=== PATIENT | female | born 1960 | race Caucasian/White ===

== ENCOUNTER 2023-08-01 18:18 | Emergency (ER) | payer OTHER ==
--- OUTSIDE RECORDS SUMMARY | 2023-08-01 18:30 | XMS REPORT | Continuity of Care Document ---
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 [facility] (ZANAFLEX) 8-19 tablet (2 st 2 MG tablet 10:12: mg total) H ospita 25 by mouth l every 8 (eight) hours as needed for muscle spasms. acetaminoph 2-0 Yes [id number] 1{tbl} Q4H Take 1 M [facility] en-codeine 8-[address] (TYLENOL 10:12: mouth Hospita WITH 25 every 4 l CODEINE #3) (four) 300-30 mg hours as per tablet needed for moderate pain .acute pain. solifenacin 2021-0 Yes 10mg QD Take 10 mg [facility] (VESICARE) 8-[address] 5 MG tablet 10:12: daily. [facility] 25 l sucralfate 2021-0 Yes 1g Q.25D Take 1 g [facility] (CARAFATE) 8-[address] 1 gram 10:12: (four) Hospita tablet 25 times a l day. traMADoL 2-0 Yes [id number] 50mg Q6H Take 50 mg [facility] (ULTRAM) 50 8-[address] mg tablet 10:12: every 6 [facility] ta 25 (six) l hours as needed for moderate pain .acute pain. pramipexole 2021-0 Yes .5mg Q.[id number] Take 0.5 [facility] (MIRAPEX) 8-[id number] 0.5 MG 10:12: 3D mouth 3 [facility]osp[facility] tablet 25 (three) l times a day. citalopram 2021-0 Yes 20mg QD Take 20 mg [facility] (CeleXA) 20 8-[address] MG tablet 10:12: daily. Hospit a 25 l tiZANidine 2021-0 Yes 2mg Q8H Take 1 [facility] (ZANAFLEX) 8-19 tablet (2 st 2 MG tablet 10:12: mg total) [facility]spita 25 by mouth l every 8 (eight) hours as needed for muscle spasms. acetaminoph 2021-0 Yes [id number] 1{tbl} Q4H Take 1 M [facility] en-codeine 8-[address] (TYLENOL 10:12: mouth [facility]osp[facility] WITH 25 every 4 l CODEINE #3) (four) 300-30 mg hours as per tablet needed for moderate pain .acute pain. solifenacin 2021-0 Yes 10mg QD Take 10 mg [facility] (VESICARE) 8-[address] 5 MG tablet 10:12: daily. [facility] 25 l sucralfate 2021-0 Yes 1g Q.25D Take 1 g [facility] (CARAFATE) 8-[address] 1 gram 10:12: (four) Hospita tablet 25 times a l day. traMADoL 2-0 Yes [id number] 50mg Q6H Take 50 mg [facility] (ULTRAM) 50 8-[address] mg tablet 10:12: every 6 [facility] ta 25 (six) l hours as needed for moderate pain .acute pain. pramipexole 2021-0 Yes .5mg Q.[id number] Take 0.5 [facility] (MIRAPEX) 8-[id number] 0.5 MG 10:12: 3D mouth 3 [facility]osp[facility] tablet 25 (three) l times a day. citalopram 2-0 Yes 20mg QD Take 20 mg [facility] (CeleXA) 20 8-[address] MG tablet 10:12: daily. Hospit a 25 l tiZANidine 2021-0 Yes 2mg Q8H Take 1 [facility] di (ZANAFLEX) 8-19 tablet (2 st 2 MG tablet 10:12: mg total) [facility] ospita 25 by mouth l every 8 (eight) hours as needed for muscle spasms. acetaminoph 2021-0 Yes [id number] 1{tbl} Q4H Take 1 M [facility] en-codeine 8-[address] (TYLENOL 10:12: mouth [facility]osp[facility] WITH 25 every 4 l CODEINE #3) (four) 300-30 mg hours as per tablet needed for moderate pain .acute pain. solifenacin 2021-0 Yes 10mg QD Take 10 mg [facility] (VESICARE) 8-[address] 5 MG tablet 10:12: daily. [facility] 25 l sucralfate 2021-0 Yes 1g Q.25D Take 1 g [facility] (CARAFATE) 8-[address] 1 gram 10:12: (four) Hospita tablet 25 times a l day. traMADoL 2-0 Yes [id number] 50mg Q6H Take 50 mg [facility] (ULTRAM) 50 8-[address] mg tablet 10:12: every 6 Hospi ta 25 (six) l hours as needed for moderate pain .acute pain. pramipexole 2-0 Yes .5mg Q.[id number] Take 0.5 [facility] (MIRAPEX) 8-[id number] 0.5 MG 10:12: 3D mouth 3 [facility]ospita tablet 25 (three) l times a day. citalopram 2-0 Yes 20mg QD Take 20 mg [facility] (CeleXA) 20 8-[address] MG tablet 10:12: daily. Hospit a 25 l tiZANidine Yes 2mg Q8H Take 1 [facility] (ZANAFLEX) 8-19 tablet (2 st 2 MG tablet 10:12: mg total) H ospita 25 by mouth l every 8 (eight) hours as needed for muscle spasms. acetaminoph Yes [id number] 1{tbl} Q4H Take 1 M [facility] en-codeine 8-[address] (TYLENOL 10:12: mouth [facility]ospita WITH 25 every 4 l CODEINE #3) (four) 300-30 mg hours as per tablet needed for moderate pain .acute pain. HYDROcodone 2021- No [id number] 1{tbl} Q6H Take 1 UT -acetaminop 8-15 04- [id number] tablet by [facility]) 00:00: 04:59 mouth 5-325 MG 00 :00 every 6 tablet (six) hours if needed for severe pain for up to 10 days. HYDROcodone 2021- No [id number] 1{tbl} Q6H Take 1 UT -acetaminop 8-04-26 [id number] tablet by [facility]) 00:00: 04:59 mouth 5-325 MG 00 :00 every 6 tablet (six) hours if needed for severe pain for up to 10 days. fentaNYL No Route: IV, Mem oria (ANES) 8-10 Drug form: l 14:31: INJ, ONCE, Stop date: 04/08/22 9:31:00 CDT propofol No Route: IV, [facility] (ANES) 8-10 Drug form: l 14:31: INJ, ONCE, Stop date: 04/08/22 9:31:00 CDT ondansetron No Route: IV, [facility] (ANES) 8-10 Drug form: l 14:31: INJ, ONCE, Stop date: 04/08/22 9:31:00 CDT dexamethaso No Route: IV, Memoria ne (ANES) 8-10 Drug form: l 14:31: INJ, ONCE, Stop date: 04/08/22 9:31:00 CDT ceFAZolin No Route: IV, Me moria (ANES) 8-10 Drug form: l 14:26: INJ, ONCE, Stop date: 04/08/22 9:26:00 CDT ePHEDrine No Route: IV, Me moria (ANES) 8-10 Drug form: l 14:26: INJ, ONCE, Stop date: 04/08/22 9:26:00 CDT Lactated No Route: IV, Mem oria Ringers 8-10 Total l Injection 13:40: Volume: Becca nn IV (ANES) 00 1,000, 1000 mL Start date: 04/08/22 8:40:00 CDT, Stop date: 04/08/22 9:40:00 CDT ropivacaine No Notes: Omari olivier 0.2% in NS 8-10 Final l - site 1 13:07: concentrat Her peralta 550 mL 00 ion: Ropivacain e 0.2% 550 mL famotidine No Notes: Memor ia 8-10 (Same as: l 11:12: Pepcid) No Notes: [facility] oxyCODONE 8-10 (Same as: l 11:12: 'Roxicodon e) ANES No Notes: [facility] morphine 8-10 (Same l Sulfate 11:12: as:MORPhin e Sulfate) ANES No Notes: [facility] HYDROmorpho 8-10 Same as: l ne 11:12: Dilaudid No Notes: [facility] flumazenil 8-10 (Same as: l 11:12: Romazicon) No Notes: [facility] naloxone 8-10 Same as l 11:12: Narcan No Notes: [facility] ondansetron 8-10 (Same as: l 11:12: Zofran) MEDICATION WASTE Product Size: 4 mg Product Wasted: ___ mg acetaminoph No Notes: Max [facility]oria en 8-10 acetaminop l 11:12: hen 4000 [place] 00 mg/day (4 gm/day). (Same as: Tylenol Extra Strength) Lactated No 1,000 mL, Omari olivier Ringers 8-10 Rate: KVO, l Injection 10:00: Route: IV, He rmann IV 1,000 mL 00 Dosing Weight 93.182 kg, Total Volume: 1,000, Start date: 04/08/22 5:00:00 CDT, Duration: 30 day, Stop date: 05/08/22 4:59:00 CDT, BSA: 2.07 m2, 0 ceFAZolin + No Notes: Omari olivier sterile 8-10 (Same As: l water 20 mL 10:00: Ancef, Herm andrew 00 Kefzol) MEDICATION WASTE Product Size: 1000 mg Product Wasted: ___ mg Bactrim DS Yes 1 tab, PO, M emoria 800 mg- 160 7-15 [id number], X l mg oral 21:11: 10 day, # Becca nn tablet 00 20 tab, 0 Refill(s) acetaminoph Yes 1,000 mg = Memoria en 500 mg 7-15 2 tab, PO, l oral 21:10: Q6H, X 14 [place] tablet. 00 day, # 112 tab, 0 Refill(s) methocarbam 0 Yes 1,500 mg = [facility]oria ol 750 mg 7-15 2 tab, PO, l oral tablet 21:10: Q6Hnow, Her peralta 00 PRN Muscle Spasms, X 5 day, # 40 tab, 0 Refill(s) aspirin 325 0 Yes 325 mg, Mem oria mg tablet, 7-15 PO, Daily, l enteric 21:10: # 30 tab, Becca nn coated 00 0 Refill(s) ondansetron No 4 mg, Memor ia 7-15 Route: l 21:06: IVP, Drug Pietro 00 form: INJ, ONCE, Dosing Weight 75, kg, Start date: 03/13/22 16:06:00 CDT, Stop date: 03/13/22 16:06:00 CDT [place] Yes TAKE 1 UT 325 MG 7-15 CAPSULE BY [facility] capsule 00:00: MOUTH 00 DAILY FOR 21 DAYS [place] Yes TAKE 1 UT 325 MG 7-15 CAPSULE BY [facility] capsule 00:00: MOUTH 00 DAILY FOR 21 DAYS [place] Yes TAKE 1 UT 325 MG 7-15 CAPSULE BY [facility] capsule 00:00: MOUTH 00 DAILY FOR 21 DAYS [place] Yes TAKE 1 UT 325 MG 7-15 CAPSULE BY [facility] capsule 00:00: MOUTH 00 DAILY FOR 21 DAYS [place] Yes TAKE 1 UT 325 MG 7-15 CAPSULE BY [facility] capsule 00:00: MOUTH 00 DAILY FOR 21 DAYS [place] Yes TAKE 1 UT 325 MG 7-15 CAPSULE BY [facility] capsule 00:00: MOUTH 00 DAILY FOR 21 DAYS Bactrim DS No 1 tab, PO, M emoria 800 mg- 160 7-14 [id number], X l mg oral 20:55: 10 day, # Becca nn tablet 00 20 tab, 0 Refill(s), Pharmacy: [facility] #[id number], 165.1, cm, 03/10/22 4:38:00 CDT, Height, 75, kg, 03/10/22 4:38:00 CDT, Weight tramadol 50 Yes 50 mg = 1 M emoria mg oral 7-14 tab, PO, l tablet 20:51: Q6H, PRN [place] 00 Pain Score 4-6, X 5 day, # 18 tab, 0 Refill(s), Pharmacy: [facility] #[id number], 165.1, cm, 03/10/22 4:38:00 CDT, Height, 75, kg, 03/10/22 4:38:00 CDT, Weight methocarbam No 1,500 mg = Memoria ol 750 mg 7-14 2 tab, PO, l oral tablet 20:50: Q6Hnow, Her peralta 00 PRN Spasm, X 5 day, # 40 tab, 0 Refill(s), Pharmacy: [facility] #[id number], 165.1, cm, 03/10/22 4:38:00 CDT, Height, 75, kg, 03/10/22 4:38:00 CDT, Weight naproxen Yes 250 mg = 1 Mem oria 250 mg oral 7-14 tab, PO, l tablet 20:50: BID, X 5 Pietro 00 day, # 10 tab, 0 Refill(s), Pharmacy: [facility] #[id number], 165.1, cm, 03/10/22 4:38:00 CDT, Height, 75, kg, 03/10/22 4:38:00 CDT, Weight acetaminoph No 1,000 mg = Memoria en 500 mg 7-14 2 tab, PO, l oral 20:49: Q6H, X 14 Pietro tablet. 00 day, # 112 tab, 0 Refill(s), Pharmacy: [facility] #[id number], 165.1, cm, 03/10/22 4:38:00 CDT, Height, 75, kg, 03/10/22 4:38:00 CDT, Weight aspirin 325 No 325 mg, Mem oria mg oral 7-14 PO, Daily, l capsule 20:49: # 30 cap, Becca nn 00 0 Refill(s), Pharmacy: [facility] #[id number], 165.1, cm, 03/10/22 4:38:00 CDT, Height, 75, kg, 03/10/22 4:38:00 CDT, Weight Omnipaque No 60 mL, Memori a 350 mg/mL 03-12 Route: l 16:31: IVP, Drug Form: SOLN, Dosing Weight 75, kg, ONCALL, STAT, Start date: 03/12/22 11:31:00 CDT, Duration: 1 doses or times, Dose = 2.2ml/kg, Max dose = 100ml -- "To be infused by Radiology Staff ONLY" Bactrim DS No Notes: One M emoria 800 mg- 160 7-14 DS tablet l mg oral 10:00: = Pietro tablet 00 trimethopr im 160mg + sulfametho xazole 800 mg Dose based on trimethopr im component On empty stomach with a glass of water. (Same As: Bactrim DS, Septra DS) remove No 1 patch, Memoria patch 7-14 Route: l 02:00: TOP, [place] 00 Bedtime, Drug form: ERFILM, Start date: 03/11/22 21:00:00 CDT, Duration: 30 day, Stop date: 04/09/22 21:00:00 CDT, 0 traMADol 0 Yes TAKE 1 UT (Ultram) 50 7-14 TABLET BY [facility] MG tablet 00:00: MOUTH 00 EVERY 6 HOURS NEEDED FOR PAIN SCORE 4-6 FOR 5 DAYS methocarbam Yes TAKE 2 UT ol 7-14 TABLETS BY Health (Robaxin) 00:00: MOUTH 750 MG 00 EVERY 6 tablet HOURS NEEDED FOR SPASMS FOR 5 DAYS naproxen 0 Yes 250mg Q.5D Take 250 UT (Naprosyn) 7-[address] mg [address] [facility] 250 MG 00:00: mouth in tablet 00 the morning and 250 mg in the evening. for 5 days. sulfamethox 0 Yes TAKE 1 UT azole-trime 7-14 TABLET BY [facility] lt thoprim 00:00: MOUTH (Bactrim 00 EVERY 12 DS) 800-160 HOURS FOR MG tablet 10 DAYS traMADol 0 Yes TAKE 1 UT (Ultram) 50 7-14 TABLET BY a lth MG tablet 00:00: MOUTH 00 EVERY 6 HOURS NEEDED FOR PAIN SCORE 4-6 FOR 5 DAYS methocarbam 0 Yes TAKE 2 UT ol 7-14 TABLETS BY Health (Robaxin) 00:00: MOUTH 750 MG 00 EVERY 6 tablet HOURS NEEDED FOR SPASMS FOR 5 DAYS naproxen 2021-0 Yes 250mg Q.5D Take 250 UT (Naprosyn) 7-14 mg [address] [facility] 250 MG 00:00: mouth in tablet 00 the morning and 250 mg in the evening. for 5 days. sulfamethox 0 Yes TAKE 1 UT azole-trime 7-14 TABLET BY [facility] lt thoprim 00:00: MOUTH (Bactrim 00 EVERY 12 DS) 800-160 HOURS FOR MG tablet 10 DAYS traMADol 2021-0 Yes TAKE 1 UT (Ultram) 50 7-14 TABLET BY [facility] MG tablet 00:00: MOUTH 00 EVERY 6 HOURS NEEDED FOR PAIN SCORE 4-6 FOR 5 DAYS methocarbam 0 Yes TAKE 2 UT ol 7-14 TABLETS BY Health (Robaxin) 00:00: MOUTH 750 MG 00 EVERY 6 tablet HOURS NEEDED FOR SPASMS FOR 5 DAYS naproxen 2021-0 Yes 250mg Q.5D Take 250 UT (Naprosyn) 7-14 mg [address] [facility] 250 MG 00:00: mouth in tablet 00 the morning and 250 mg in the evening. for 5 days. sulfamethox 2021-0 Yes TAKE 1 UT azole-trime 7-14 TABLET BY [facility] lt thoprim 00:00: MOUTH (Bactrim 00 EVERY 12 DS) 800-160 HOURS FOR MG tablet 10 DAYS traMADol 2021-0 Yes TAKE 1 UT (Ultram) 50 7-14 TABLET BY [facility] lt MG tablet 00:00: MOUTH 00 EVERY 6 HOURS NEEDED FOR PAIN SCORE 4-6 FOR 5 DAYS methocarbam 2021-0 Yes TAKE 2 UT ol 7-14 TABLETS [address] [facility] (Robaxin) 00:00: MOUTH 750 MG 00 EVERY 6 tablet HOURS NEEDED FOR SPASMS FOR 5 DAYS naproxen 2021-0 Yes 250mg Q.5D Take 250 UT (Naprosyn) 7-14 mg [address] [facility] 250 MG 00:00: mouth in tablet 00 the morning and 250 mg in the evening. for 5 days. sulfamethox 2021-0 Yes TAKE 1 UT azole-trime 7-14 TABLET BY [facility] lt thoprim 00:00: MOUTH (Bactrim 00 EVERY 12 DS) 800-160 HOURS FOR MG tablet 10 DAYS traMADol 2021-0 Yes TAKE 1 UT (Ultram) 50 7-14 TABLET BY [facility] lt MG tablet 00:00: MOUTH 00 EVERY 6 HOURS NEEDED FOR PAIN SCORE 4-6 FOR 5 DAYS methocarbam 2021-0 Yes TAKE 2 UT ol 7-14 TABLETS [address] [facility] (Robaxin) 00:00: MOUTH 750 MG 00 EVERY 6 tablet HOURS NEEDED FOR SPASMS FOR 5 DAYS naproxen 2021-0 Yes 250mg Q.5D Take 250 UT (Naprosyn) 7-14 mg [address] [facility] 250 MG 00:00: mouth in tablet 00 the morning and 250 mg in the evening. for 5 days. sulfamethox 2021-0 Yes TAKE 1 UT azole-trime 7-14 TABLET BY [facility] lt thoprim 00:00: MOUTH (Bactrim 00 EVERY 12 DS) 800-160 HOURS FOR MG tablet 10 DAYS traMADol 2022-0 Yes TAKE 1 UT (Ultram) 50 7-14 TABLET BY [facility] MG tablet 00:00: MOUTH 00 EVERY 6 HOURS NEEDED FOR PAIN SCORE 4-6 FOR 5 DAYS methocarbam Yes TAKE 2 UT ol 7-14 TABLETS [address] [facility] (Robaxin) 00:00: MOUTH 750 MG 00 EVERY 6 tablet HOURS NEEDED FOR SPASMS FOR 5 DAYS naproxen Yes 250mg Q.5D Take 250 UT (Naprosyn) 7-[address] mg [address] [facility] 250 MG 00:00: mouth in tablet 00 the morning and 250 mg in the evening. for 5 days. sulfamethox Yes TAKE 1 UT azole-trime 7-14 TABLET BY [facility] thoprim 00:00: MOUTH (Bactrim 00 EVERY 12 DS) 800-160 HOURS FOR MG tablet 10 DAYS traMADol Yes TAKE 1 UT (Ultram) 50 7-14 TABLET [facility] MG tablet 00:00: MOUTH 00 EVERY 6 HOURS NEEDED FOR PAIN SCORE 4-6 FOR 5 DAYS traMADol Yes TAKE 1 UT (Ultram) 50 7-14 TABLET BY [facility] MG tablet 00:00: MOUTH 00 EVERY 6 HOURS NEEDED FOR PAIN SCORE 4-6 FOR 5 DAYS traMADol Yes TAKE 1 UT (Ultram) 50 7-14 TABLET BY [facility] MG tablet 00:00: MOUTH 00 EVERY 6 HOURS NEEDED FOR PAIN SCORE 4-6 FOR 5 DAYS traMADol Yes TAKE 1 UT (Ultram) 50 7-14 TABLET BY [facility] MG tablet 00:00: MOUTH 00 EVERY 6 HOURS NEEDED FOR PAIN SCORE 4-6 FOR 5 DAYS valsartan Yes 160 mg = 1 Me moria 160 mg oral 7-13 tab, PO, l tablet 19:37: Daily tizanidine Yes 2 mg = 1 Mem oria 2 mg oral 7-13 tab, PO, l tablet 19:37: Bedtime, PRN Spasm sucralfate Yes 1 gm = 1 Mem oria 1 g oral 7-13 tab, PO, l tablet 19:37: Daily citalopram Yes 40 mg = 1 Me moria 40 mg oral 7-13 tab, PO, l tablet 19:36: Daily pramipexole Yes 0.5 mg = 1 Memoria 0.5 mg oral 7-13 tab, PO, l tablet 19:36: BID VESIcare Yes 10 mg, PO, Mem oria 7-13 Daily l 19:36: [place] 00 Prilosec 20 Yes 20 mg = 1 M emoria mg oral 7-13 cap, PO, l delayed 19:34: Daily [place] release 00 capsule lidocaine No Notes: Memori a 4% patch 7-13 Patch is l 16:00: applied to intact skin to cover painful area for up to 12 hours in a 24-hour period (12 hours on and 12 hours off). Please indicate the location of applicatio n site. Site 1: Remove old patch before applicatio n of new patch. (Same as Aspercreme Lidocaine Patch) oxyCODONE 5 No Notes: Omari olivier mg/5 mL 7-13 (Same as: l oral 15:31: 'Roxicodon [place] solution 00 e) oxyCODONE No Notes: Memori a immediate 7-13 (Same as: l release 14:36: 'Roxicodon Herm andrew 00 e) Omnipaque No 60 mL, Memori a 350 mg/mL 7-13 Route: l 02:43: IVP, Drug Form: SOLN, Dosing Weight 75, kg, ONCALL, STAT, Start date: 03/10/22 21:43:00 CDT, Duration: 1 doses or times, Dose = 2.2ml/kg, Max dose = 100ml -- "To be infused by Radiology Staff ONLY" senna No Notes: Memoria 7-13 (Same as: l 02:00: Senokot) Pietro docusate-se No Notes: Omari olivier nna 50 7-13 (Same as l mg-8.6 mg 02:00: Senokot-S) He rmann oral tablet 00 Equiv. to Wendi-Colac e. melatonin No Notes: Memori a 7-13 (Same as: l 02:00: Melatonin) labetalol No 5 mg, 1 Memor ia 7-13 mL, Route: l 00:43: IVP, Drug form: INJ, ONCE, Dosing Weight 75, kg, Start date: 03/10/22 19:43:00 CDT, Stop date: 03/10/22 19:43:00 CDT, 0 pramipexole No Notes: Omari olivier 7-13 TIME l 00:35: CRITICAL Pietro 00 MEDICATION (Same as: Mirapex) valsartan No Notes: Memori a 7-13 Same as l 00:35: [place] oxyCODONE No Notes: Memori a immediate 7-12 (Same as: l release 22:54: 'Roxicodon e) oxyCODONE No 2.5 mg, Memor ia immediate 7-12 Route: PO, l release 22:48: Drug form: Herm andrew 00 TAB, ONCE, Dosing Weight 75, kg, Start date: 03/10/22 17:48:00 CDT, Stop date: 03/10/22 17:48:00 CDT MiraLax No Notes: Memoria 7-12 Dissolve l 22:00: in 8 oz of water or juice. (Same as: Miralax) labetalol No 5 mg, 1 Memor ia 7-12 mL, Route: l 17:21: IV, Drug form: INJ, Q4H, Dosing Weight 75, kg, PRN Hypertensi on, Start date: 03/10/22 12:21:00 CDT, Duration: 30 day, Stop date: 04/09/22 12:20:00 CDT, 0 aspirin No Notes: Memoria 7-12 Take with l 16:30: food. oxyCODONE No Notes: Memori a immediate 7-12 (Same as: l release 16:30: Roxicodone Herm ) docusate No Notes: Memoria 7-12 (Same as: l 14:00: Colace) (Do Not Crush) enoxaparin No Notes: Memor ia 7-12 (Same as: l 10:00: Lovenox) methocarbam No Notes: Omari olivier ol -12 (Same l 10:00: as:Robaxin ) acetaminoph No Notes: Max Memoria en -12 acetaminop l 09:11: hen 4000 mg/day (4 gm/day). (Same as: Tylenol Extra Strength) gabapentin No Notes: Memor ia 7-12 (Same as: l 09:11: Neurontin) celecoxib No Notes: Memori a 12 NSAID. l 09:11: Please check indication . Not for seizure. (Same As: CeleBREX) tramadol No Notes: Not Mem oria 03-10 to exceed l 09:11: 400mg/day. (Same As: Ultram) Omnipaque No 80 mL, Memori a 350 mg/mL 03-10 Route: l 07:08: IVP, Drug Form: SOLN, Dosing Weight 75, kg, ONCALL, STAT, Start date: 03/10/22 2:08:00 CDT, Duration: 1 doses or times, Dose = 2.2ml/kg, Max dose = 100ml -- "To be infused by Radiology Staff ONLY" fentaNYL No 100 Memoria 03-10 microgram, l 05:29: Route: IVP, ONCE, Dosing Weight 75, kg, Priority: STAT, Start date: 03/10/22 0:29:00 CDT, Stop date: 03/10/22 0:29:00 CDT gabapentin No 300 mg, Omari olivier 03-10 Route: PO, l 02:33: ONCE, Dosing Weight 75, kg, Start date: 03/09/22 21:33:00 CDT, Stop date: 03/09/22 21:33:00 CDT acetaminoph No 1,000 mg, M emoria en 03-10 Route: PO, l 02:32: ONCE, Dosing Weight 75, kg, Start date: 03/09/22 21:32:00 CDT, Stop date: 03/09/22 21:32:00 CDT fentaNYL No 50 Memoria 7-12 microgram, l 00:48: Route: [place] 00 IVP, ONCE, Dosing Weight 75, kg, Priority: STAT, Start date: 03/09/22 19:48:00 CDT, Stop date: 03/09/22 19:48:00 CDT Saline No Notes: Memoria Flush 0.9% 7-12 (Same as: l 00:43: BD Piet[place] 00 Posiflush) morphine No Notes: Memoria Sulfate 7-12 (Same l 00:43: as:MORPhin e Sulfate) ondansetron No Notes: Omari olivier 7-12 (Same as: l 00:43: Zofran) MEDICATION WASTE Product Size: 4 mg Product Wasted: ___ mg Isolyte S No Notes: Memori a PH-7.4 7-12 (Same as: l (Bolus) IV 00:43: Isolyte S He rmann 00 PH7.4, Normosol-R PH 7.4, Plasma-Lyt e A ) citalopram Yes TAKE 1 UT (CeleXA) 40 4-17 TABLET [facility] MG tablet 00:00: MOUTH 00 EVERY DAY DAILY ORALLY 90 DAYS solifenacin Yes 10mg QD Take 10 mg UT (VESIcare) 4-17 by mouth 1 [facility] 10 MG 00:00: (one) time tablet 00 each day. citalopram Yes TAKE 1 UT (CeleXA) 40 4-17 TABLET BY [facility] MG tablet 00:00: MOUTH 00 EVERY DAY DAILY ORALLY 90 DAYS solifenacin Yes 10mg QD Take 10 mg UT (VESIcare) 4-17 by mouth 1 [facility] 10 MG 00:00: (one) time tablet 00 each day. citalopram Yes TAKE 1 UT (CeleXA) 40 4-17 TABLET BY [facility] MG tablet 00:00: MOUTH 00 EVERY DAY DAILY ORALLY 90 DAYS solifenacin 2022-0 Yes 10mg QD Take 10 mg UT (VESIcare) 4-17 by mouth 1 [facility] 10 MG 00:00: (one) time tablet 00 each day. citalopram 2-0 Yes TAKE 1 UT (CeleXA) 40 4-17 TABLET BY [facility] MG tablet 00:00: MOUTH 00 EVERY DAY DAILY ORALLY 90 DAYS solifenacin 2-0 Yes 10mg QD Take 10 mg UT (VESIcare) 4-17 by mouth 1 [facility] 10 MG 00:00: (one) time tablet 00 each day. citalopram 2-0 Yes TAKE 1 UT (CeleXA) 40 4-17 TABLET BY [facility] MG tablet 00:00: MOUTH 00 EVERY DAY DAILY ORALLY 90 DAYS solifenacin 2-0 Yes 10mg QD Take 10 mg UT (VESIcare) 4-17 by mouth 1 [facility] 10 MG 00:00: (one) time tablet 00 each day. citalopram 2-0 Yes TAKE 1 UT (CeleXA) 40 4-17 TABLET BY [facility] MG tablet 00:00: MOUTH 00 EVERY DAY DAILY ORALLY 90 DAYS solifenacin 2-0 Yes 10mg QD Take 10 mg UT (VESIcare) 4-17 by mouth 1 [facility] 10 MG 00:00: (one) time tablet 00 each day. tiZANidine 2022-0 Yes 2mg Take 2 mg UT (Zanaflex) 3-31 by mouth Healt [facility] 2 MG tablet 00:00: every 8 00 (eight) hours if needed. tiZANidine 2022-0 Yes 2mg Take 2 mg UT (Zanaflex) 3-31 by mouth Healt [facility] 2 MG tablet 00:00: every 8 00 (eight) hours if needed. tiZANidine 2022-0 Yes 2mg Take 2 mg UT (Zanaflex) 3-31 by mouth Healt [facility] 2 MG tablet 00:00: every 8 00 (eight) hours if needed. tiZANidine 2022-0 Yes 2mg Take 2 mg UT (Zanaflex) 3-31 by mouth [facility]alt [facility] 2 MG tablet 00:00: every 8 00 (eight) hours if needed. tiZANidine 2022-0 Yes 2mg Take 2 mg UT (Zanaflex) 3-31 by mouth Healt [facility] 2 MG tablet 00:00: every 8 00 (eight) hours if needed. tiZANidine 2021-0 Yes 2mg Take 2 mg UT (Zanaflex) 3-31 by mouth Healt [facility] 2 MG tablet 00:00: every 8 00 (eight) hours if needed. pramipexole 2021-0 Yes TAKE 1 UT (Mirapex) 3-24 TABLET BY [facility]alt [facility] 0.5 MG 00:00: MOUTH tablet 00 EVERY MORNING AND TAKE 2 TABLETS AT BEDTIME 90 pramipexole 2021-0 Yes TAKE 1 UT (Mirapex) 3-24 TABLET BY [facility]alt [facility] 0.5 MG 00:00: MOUTH tablet 00 EVERY MORNING AND TAKE 2 TABLETS AT BEDTIME 90 pramipexole 2021-0 Yes TAKE 1 UT (Mirapex) 3-24 TABLET BY [facility]alt [facility] 0.5 MG 00:00: MOUTH tablet 00 EVERY MORNING AND TAKE 2 TABLETS AT BEDTIME 90 pramipexole 2021-0 Yes TAKE 1 UT (Mirapex) 3-24 TABLET BY [facility] 0.5 MG 00:00: MOUTH tablet 00 EVERY MORNING AND TAKE 2 TABLETS AT BEDTIME 90 pramipexole 2021-0 Yes TAKE 1 UT (Mirapex) 3-24 TABLET BY [facility]alt [facility] 0.5 MG 00:00: MOUTH tablet 00 EVERY MORNING AND TAKE 2 TABLETS AT BEDTIME 90 pramipexole 2021-0 Yes TAKE 1 UT (Mirapex) 3-24 TABLET BY [facility] 0.5 MG 00:00: MOUTH tablet 00 EVERY MORNING AND TAKE 2 TABLETS AT BEDTIME 90 gabapentin 2020-08 Yes 100mg QD Take 100 [facility] (Neurontin) 1-04 mg by Health 100 MG 00:00: mouth 1 capsule 00 (one) time each day. gabapentin 2020-08 Yes 100mg QD Take 100 [facility] (Neurontin) 1-04 mg by Health 100 MG 00:00: mouth 1 capsule 00 (one) time each day. gabapentin 2020-08 Yes 100mg QD Take 100 [facility] (Neurontin) 1-04 mg by Health 100 MG 00:00: mouth 1 capsule 00 (one) time each day. gabapentin 2020-08 Yes 100mg QD Take 100 [facility] (Neurontin) 1-04 mg by Health 100 MG 00:00: mouth 1 capsule 00 (one) time each day. gabapentin 2020-08 Yes 100mg QD Take 100 [facility] (Neurontin) 1-04 mg by Health 100 MG 00:00: mouth 1 capsule 00 (one) time each day. gabapentin 2020-08 Yes 100mg QD Take 100 [facility] (Neurontin) 1-04 mg by Health 100 MG 00:00: mouth 1 capsule 00 (one) time each day. omeprazole 2020-08 Yes TAKE 1 [facility] (PriLOSEC) 1-02 CAPSULE BY [facility] [address] 00:00: MOUTH ONCE capsule 00 A DAY 30 MINUTES BEFORE MORNING MEAL DUE FOR [facility] omeprazole 2020-08 Yes TAKE 1 UT (PriLOSEC) 1-02 CAPSULE BY [facility] [address] 00:00: MOUTH ONCE capsule 00 A DAY 30 MINUTES BEFORE MORNING MEAL DUE FOR [facility] T omeprazole 2020-08 Yes TAKE 1 UT (PriLOSEC) 1-02 CAPSULE BY [facility] [address] 00:00: MOUTH ONCE capsule 00 A DAY 30 MINUTES BEFORE MORNING MEAL DUE FOR [facility] T omeprazole 2020-08 Yes TAKE 1 UT (PriLOSEC) 1-02 CAPSULE BY [facility] [address] 00:00: MOUTH ONCE capsule 00 A DAY 30 MINUTES BEFORE MORNING MEAL DUE FOR [facility] T omeprazole 2020-08 Yes TAKE 1 UT (PriLOSEC) 1-02 CAPSULE BY [facility] [address] 00:00: MOUTH ONCE capsule 00 A DAY 30 MINUTES BEFORE MORNING MEAL DUE FOR [facility] T omeprazole 2020-08 Yes TAKE 1 UT (PriLOSEC) 1-02 CAPSULE BY [facility] [address] 00:00: MOUTH ONCE capsule 00 A DAY 30 MINUTES BEFORE MORNING MEAL [facility] [facility] Asp[facility]in 81 Yes 81 mg = 1 Me moria MG Chewable 9-13 tab, PO, l Tablet 16:24: Q24H, 0 [place] 00 Refill(s) atorvastati Yes 80 mg = 2 M emoria n 40 mg 9-13 tab, PO, l oral tablet 16:24: Bedtime, 0 [place] 00 Refill(s) NIFEdipine No Notes: Memor ia 30 mg oral 9-11 (Same as: l tablet, 14:00: Adalat CC, Herm andrew extended 00 Procardia release XL) Give on empty stomach. Take 1 hour before or 2 hours after meal; "Avoid grapefruit and grapefruit juice". Do not crush Saline No Notes: Memoria Flush 0.9% 9-10 (Same as: l 21:00: BD [place] Posiflush) vancomycin Yes 750 mg, Omari olivier 750 mg/150 9-10 IV, BID, X l mL 16:49: 26 day, # [place] intravenous 00 52 ea, 0 solution Refill(s), other Rocephin 1 Yes 2 gm, IV, Me moria g injection 9-10 Daily, X l 16:48: 26 day, # [place] 00 26 ea, 0 Refill(s), other Lidocaine No 5 mL, Memoria Hydrochlori 10 Route: l de 10 MG/ML 14:00: INTRADERM, Injectable Dosing Solution Weight 81.818, kg, ONCALL, For PICC line insertion. , Start date: 05/09/21 9:00:00 CDT, Duration: 30 day, Stop date: 06/08/21 8:59:00 CDT Saline No Notes: [facility] Flush 0.9% 9-10 (Same as: l 13:49: BD [place] Posiflush) Ceftriaxone No Notes: Omari olivier 05-08 (Same As: l 19:00: Rocephin). Use with 100 mL NS and infuse over 30 min MEDICATION WASTE Product Size: 2000 mg Product Wasted: ___ mg Miralax No Notes: Memoria - Dissolve l 22:00: in 8 oz of [place] water or juice. (Same as: Miralax) Docusate No Notes: [facility] Sodium 50 - (Same as l MG / 22:00: Senokot-S) sennosides, 00 Equiv. to LONG-TERM 8.6 MG Wendi-Colac Oral Tablet e. Lactulose No Notes: Memori a 667 MG/ML 05-07 (Same l Oral 17:11: as:Chronul [place] Solution 00 ac) Dulcolax No Notes: [facility] Laxative 05-07 (Same As: l 17:11: Dulcolax, Bisco-Lax) cefepime No Notes: [facility]oria 05-07 (Same As: l 14:00: Maxipime) MEDICATION WASTE Product Size: 1000 mg Product Wasted: ___ mg ondansetron No Route: IV, Memoria (ANES) 05-06 Drug form: l 22:45: INJ, ONCE, Stop date: 05/06/21 17:45:00 CDT sugammadex No Route: IV, M emoria (ANES) 05-06 Drug form: l 22:45: SOLN, ONCE, Stop date: 05/06/21 17:45:00 CDT phenylephri No Route: IV, Memoria ne (ANES) 05-06 Drug form: l 22:17: INJ, ONCE, Stop date: 05/06/21 17:17:00 CDT Hydralazine No Notes: Omari olivier 05-06 (Same as: l 22:09: Apresoline ) Push over 5 minutes Labetalol No 10 mg, 2 Omari olivier 05-06 mL, Route: l 22:09: IVP, Drug form: INJ, Q5Min, Dosing Weight 81.818, kg, PRN Elevated BP, Start date: 05/06/21 17:09:00 CDT, Duration: 5 doses or times, Stop date: Limited # of times, 0 Ketorolac No 4 days Memor ia 05-06 l 22:09: MEDICATION WASTE Product Size: 30 mg Product Wasted: ___ mg Morphine No Notes: Memoria 05-06 (Same l 22:09: as:MORPhin e Sulfate) Fentanyl No Notes: Memoria 05-06 (Same as: l 22:09: Sublimaze) Preservati ve free. Flumazenil No Notes: Memor ia 05-06 (Same as: l 22:09: Romazicon) Naloxone No Notes: Memoria 05-06 Same as l 22:09: Narcan Meperidine No Notes: Memor ia 05-06 (Same as: l 22:09: Demerol) "Use Precaution in Elderly, Seizure disorders, and Renal impairment " Ondansetron No Notes: Omari olivier 05-06 (Same as: l 22:09: Zofran) MEDICATION WASTE Product Size: 4 mg Product Wasted: ___ mg Dexamethaso No Notes: Omari olivier ne 05-06 Concentrat l 22:09: ion: 4mg/ml Promethazin No Notes: Do M emoria e 05-06 not give l 22:09: IV push. (Same as: Phenergan) Insulin No Notes: Memoria Lispro 05-06 (Same as: l 22:09: Humalog) Roll in palms of hands gently; Do not shake vigorously . WASTE: F/P - Black; E - Municipal Trash Bin Stable for 28 days at room temperatur e. Expires in days from ____Date fentaNYL No Route: IV, Mem oria (ANES) 05-06 Drug form: l 22:02: INJ, ONCE, Stop date: 05/06/21 17:02:00 CDT propofol No Route: IV, Mem oria (ANES) 05-06 Drug form: l 22:02: INJ, ONCE, Stop date: 05/06/21 17:02:00 CDT rocuronium No Route: IV, M emoria (ANES) 05-06 Drug form: l 22:02: INJ, ONCE, Stop date: 05/06/21 17:02:00 CDT lidocaine No Route: IV, Me moria (ANES) 05-06 Drug form: l 22:02: INJ, ONCE, Stop date: 05/06/21 17:02:00 CDT dexamethaso No Route: IV, Memoria ne (ANES) 05-06 Drug form: l 22:02: INJ, ONCE, Stop date: 05/06/21 17:02:00 CDT cefepime No Route: IV, Mem oria (ANES) 05-06 Drug form: l 22:02: INJ, ONCE, Stop date: 05/06/21 17:02:00 CDT Lactated No Route: IV, Mem oria Ringers 05-06 Total l Injection 21:10: Volume: Becca nn IV (ANES) 1,000, 1000 mL Start date: 05/06/21 16:10:00 CDT, Stop date: 05/06/21 17:10:00 CDT Docusate No Notes: [facility]oria 05-06 (Same as: l 14:00: Colace) (Do Not Crush) Alprazolam No Notes: Memor ia 0.25 MG 05-05 With food l Oral Tablet 19:31: or milk Her peralta [Xanax] (Same as: Xanax) Naproxen No Notes: Memoria 05-04 (Same as: l 14:00: Naprosyn) Take with food. Prilosec No 20 mg, 1 Memor ia 05-04 cap, l 14:00: Route: PO, Drug form: DRC, Daily, Dosing Weight 81.818, kg, Start date: 05/04/21 9:00:00 CDT, Duration: 30 day, Stop date: 06/02/21 9:00:00 CDT Pramipexole No Notes: Omari olivier 05-04 (Same as: l 14:00: Mirapex) Sucralfate No Notes: Susanna Chadwick emoria 05-04 interfere l 14:00: w/enteral [place] 00 feeds - Take 1 hr before or 2 hr after antacids, dairy pdt, meals & minerals - On empty stomach. For patients unable to swallow tablet, dissolve in 10mL - 30mL of water or juice and stir before giving. (Same As: Carafate) valsartan No Notes: Memori a 05-04 Same as l 14:00: Diovan [place] 00 Protonix No Notes: Memoria -05 Tablet l 14:00: should not [place] 00 be chewed or crushed. (Same as: Protonix) Lidocaine No 1 patch, Omari olivier 0.05 MG/MG 05-04 Route: l Transdermal 03:45: TOP, Samson n Patch 00 Daily, Drug form: FILM, Start date: 05/03/21 22:45:00 CDT, Duration: 30 day, Stop date: 06/02/21 9:00:00 CDT Trazodone No Notes: Memori a 05-04 (Same As: l 03:39: Desyrel) [place] 00 morphine No Notes: Memoria 0.5 mg/mL 05-04 (Same l preservativ 03:38: as:MORPhin [place] e-free 00 e Sulfate) injectable solution Lidocaine No 1 patch, Omari olivier Hydrochlori 05-04 Route: l de 0.05 00:13: TOP, [place] MG/MG 00 Daily, Transdermal Start Patch date: [Lidoderm] 05/03/21 19:13:00 CDT, Duration: 30 day, Stop date: 06/02/21 9:00:00 CDT, Remove after 12 hours Citalopram Yes PO, Daily, M emoria 05-03 0 l 23:23: Refill(s) [place] 00 VESICARE Yes PO, Daily, Mem oria 05-03 0 l 23:23: Refill(s) pramipexole Yes See Memori a 0.375 mg 05-03 Instructio l oral 23:20: ns, take 1 [place] tablet, 00 tab PO in extended am take 2 release tabs po in pm, 0 Refill(s) valsartan Yes 160 mg = 1 Me moria 160 mg oral 05-03 tab, PO, l tablet 23:19: Daily, # [place] 00 30 tab, 0 Refill(s) sucralfate Yes 1 gm = 1 Mem oria 1 g oral 05-03 tab, PO, l tablet 23:18: Daily, 0 [place] 00 Refill(s) Omeprazole Yes 20 mg = 1 Me moria 20 MG 05-03 cap, PO, l Enteric 23:18: Daily, # Samson n Coated 00 30 cap, 0 Capsule Refill(s) [Prilosec] atorvastati No Notes: Omari olivier n 05-03 (Same as: l 02:00: Lipitor) cefepime No Notes: Memoria 05-02 (Same As: l 19:00: Maxipime) MEDICATION WASTE Product Size: 1000 mg Product Wasted: ___ mg remove No Notes: Memoria patch 05-02 Remove l 19:00: patch 12 [place] 00 hours after applicatio n each day. heparin No Notes: Memoria 05-02 porcine l 14:00: heparin [place] Vancomycin No 2001 mg: Me moria 05-02 infuse l 14:00: over 2.5 [place] 00 hours For adult patients only: Round to nearest 250 mg per Medical Staff approval Saline No Notes: Memoria Flush 0.9% 05-02 (Same as: l 14:00: BD [place] 00 Posiflush) Ativan No Notes: Memoria 05-02 (Same as: l 08:53: Ativan) [place] 00 Aspirin 81 No Notes: Memor ia MG Chewable 05-02 Take with l Tablet 07:00: food. [place] 00 Saline No Notes: [facility]oria Flush 0.9% 05-02 (Same as: l 06:48: BD [place] 00 Posiflush) lidocaine No Notes: Memori a 5% patch 05-02 Apply only l 06:29: once for [place] 00 up to 12 hours in a 24-hour period (12 hours on and 12 hours off). (Same as: Lidoderm) "Remove old patch before applicatio n of new patch" acetaminoph No Notes: Do M emoria en-codeine 05-02 not exceed l #3 06:29: 4gm/day of acetaminop hen. (Same as: Tylenol with Codeine # 3) Vancomycin No Notes: Memor ia 05-02 Vancomycin l 06:27: Pharmacy [place] 27 Dosing Protocol PHARMAC Y USE ONLY Note: This is not a medication order. This is a consultati on order. Lasix No Notes: Memoria 05-02 (Same as: l 06:24: Lasix) MEDICATION WASTE Product Size: 40 mg Product Wasted: ___ mg Albuterol No Notes: Memori a 0.833 MG/ML 05-02 (Same as: 06:23: Duoneb) Ipratropium 00 [place] 0.167 MG/ML Inhalant Solution Hydralazine No Notes: Omari olivier 05-02 (Same as: l 06:23: Apresoline ) Push over 5 minutes Dextrose No 12.5 gm, Memor ia 50% Syringe 05-02 25 mL, l (D50W) 06:17: Route: IVP, Drug Form: INJ, Dosing Weight 81.818, kg, PRN, PRN Blood Glucose Results, Start date: 05/02/21 1:17:00 CDT, Duration: 30 day, Stop date: 06/01/21 1:16:00 CDT, 0 Glucagon No 1 mg, Memoria 05-02 Route: IM, l 06:17: Drug form: PDR/INJ, PRN, Dosing Weight 81.818, kg, PRN Blood Glucose Results, Start date: 05/02/21 1:17:00 CDT, Duration: 30 day, Stop date: 06/01/21 1:16:00 CDT, 0 Bisacodyl No Notes: Memori a 05-02 (Same As: l 06:17: Dulcolax, Bisco-Lax) Ondansetron No Notes: Omari olivier 05-02 (Same as: l 06:17: Zofran) MEDICATION WASTE Product Size: 4 mg Product Wasted: ___ mg Melatonin No Notes: Memori a 05-02 (Same as: l 06:17: Melatonin) Acetaminoph No Notes: Do M karen en 05-02 not exceed l 06:17: 4 gm/day. [place] 00 (Same as: Tylenol) Omnipaque No 85 mL, Memori a 350 05-02 Route: l injectable 03:00: IVP, [place] solution Dosing Weight 81.818, kg, ONCALL, Start date: 05/01/21 22:00:00 CDT, Duration: 1 doses or times vancomycin No 2000 mg: Me moria + Sodium 05-01 infuse l Chloride 23:04: over 2.5 Becca nn 0.9% IV 500 00 hours For mL adult patients only: Round to nearest 250 mg per Medical Staff approval MEDICATION WASTE Product Size: 1000 mg Product Wasted: ___ mg Vancomycin No 1,000 mg, Me moria 05-01 Route: l 22:49: IVPB, Drug form: INJ, ONCE, Dosing Weight 89.6, kg, Priority: STAT, Start date: 05/01/21 17:49:00 CDT, Stop date: 05/01/21 17:49:00 CDT, ABX Indication : Pneumonia cefepime No Notes: Memoria 05-01 (Same As: l 22:49: Maxipime) MEDICATION WASTE Product Size: 1000 mg Product Wasted: ___ mg Saline No Notes: Memoria Flush 0.9% 05-01 (Same as: l 22:48: BD Posiflush) Naprosyn Yes 375 mg = 1 Mem oria 375 mg oral 8-25 tab, PO, l tablet 15:47: BID, PRN Pain Score 4-6, # 30 tab, 0 Refill(s) Omnipaque No Notes: Memori a 350 04-23 (Same l injectable 12:27: as:Omnipaq H ermann solution 00 ue 350) WASTE: F/P - Black; E - Municipal Trash Bin Morphine No 4 mg, Memoria 8-25 Route: l 12:26: IVP, ONCE, [place] 00 Dosing Weight 89.6, kg, Priority: STAT, Start date: 04/23/21 7:26:00 CDT, Stop date: 04/23/21 7:26:00 CDT Acetaminoph No Notes: Max Memoria en 8-25 acetaminop l 11:58: hen 4000 [place] 00 mg/day (4 gm/day). (Same as: Tylenol Extra Strength) Ketorolac No 15 mg, Memori a 8-25 Route: l 11:23: IVP, Drug [place] 00 form: INJ, ONCE, Dosing Weight 89.6, kg, Priority: STAT, Start date: 04/23/21 6:23:00 CDT, Stop date: 04/23/21 6:23:00 CDT Saline No Notes: Memoria Flush 0.9% 8-25 (Same as: l 10:44: BD [place] Posiflush) Sodium No 1,000 mL, Memori a Chloride 8-25 Infuse l 0.9% 10:44: Over: 1 [place] (Bolus) IV 00 hr, Route: IV, ONCE, Priority: STAT, Dosing Weight 89.6 kg, Start date: 04/23/21 5:44:00 CDT, Stop date: 04/23/21 5:44:00 CDT { Yes See Memoria (Methylpred 8-20 Instructio l nisolone 4 06:29: ns, PO, Herm andrew MG Oral 00 Take by Tablet mouth as [Medrol]) } directed Pack on label., [Medrol X 6 day, # Dosepak] 21 tab, 0 Refill(s) Ondansetron Yes 4 mg = 1 Me moria 4 MG Oral 8-20 tab, PO, l Tablet 06:26: Q6H, PRN [place] [Zofran] 00 Nausea/Vom iting, X 8 day, # 20 tab, 0 Refill(s) Ibuprofen No 600 mg, Memor ia 8-20 Route: PO, l 05:39: Drug form: TAB, ONCE, Dosing Weight 88.3, kg, Priority: STAT, Start date: 04/18/21 0:39:00 CDT, Stop date: 04/18/21 0:39:00 CDT Bentyl 2020-0 No 20 mg, Memoria 04-18 Route: PO, l 05:34: ONCE, Dosing Weight 80.71, kg, Start date: 04/18/21 0:34:00 CDT, Stop date: 04/18/21 0:34:00 CDT Zofran ODT 0 No 4 mg, Memori a 04-18 Route: PO, l 05:33: Drug form: TABDIS, ONCE, Dosing Weight 80.71, kg, Priority: STAT, Start date: 04/18/21 0:33:00 CDT, Stop date: 04/18/21 0:33:00 CDT losartan 2019-0 Yes 160mg Take 160 Meth rohit potassium 5-[address] (LOSARTAN 10:31: mouth. Hospit [facility] ORAL) 25 l losartan 2020-0 Yes 160mg Take 160 Meth rohit potassium 5-[address] (LOSARTAN 10:31: mouth. Hospit [facility] ORAL) 25 l losartan 2020-0 Yes 160mg Take 160 Meth rohit potassium 5-[address] (LOSARTAN 10:31: mouth. Hospit a ORAL) 25 l losartan 2020-0 Yes 160mg Take 160 Meth rohit potassium 5-[address] (LOSARTAN 10:31: mouth. Hospit a ORAL) 25 l valsartan Yes 160mg QD Take [address] [facility] (DIOVAN) 8-22 [facility] MG 17:30: mouth Medical tablet 42 daily. [place] gabapentin 2018-0 Yes 300mg QD Take [address] (NEURONTIN) 8-22 [facility] 300 MG 17:30: mouth Medical capsule 42 nightly. [place] citalopram 2017-0 Yes 20mg QD Take [address] (CELEXA) 20 8-22 by mouth [facility] MG tablet 17:30: daily. Medica l 42 [place] rOPINIRole 0 Yes 24mg QD Take [address] 12 mg Tb24 8-22 [facility] 17:30: daily. [address] citalopram 2018-0 Yes 20mg QD Take [address] (CELEXA) 20 8-22 by mouth [facility] MG tablet 17:30: daily. [address] rOPINIRole 2018-0 Yes 24mg QD Take [address] 12 mg Tb24 8-22 [facility] 17:30: daily. [address] valsartan 2018-0 Yes 160mg QD Take [address] (DIOVAN) 8-22 mg [facility] 160 MG 17:30: mouth Medical tablet 42 daily. [place] gabapentin 2018-0 Yes 300mg QD Take [address] (NEURONTIN) 8-22 [facility] 300 MG 17:30: mouth Medical capsule 42 nightly. [place] valsartan 2018-0 Yes 160mg QD Take [address] (DIOVAN) 8-22 mg [facility] 160 MG 17:30: mouth Medical tablet 42 daily. [place] gabapentin 2018-0 Yes 300mg QD Take [address] (NEURONTIN) 8-22 [facility] 300 MG 17:30: mouth Medical capsule 42 nightly. [place] citalopram 2018-0 Yes 20mg QD Take [address] (CELEXA) 20 8-22 by mouth [facility] MG tablet 17:30: daily. [address] rOPINIRole 2018-0 Yes 24mg QD Take [address] 12 mg Tb24 8-22 [facility] 17:30: daily. [address] valsartan 2018-0 Yes 160mg QD Take [address] (DIOVAN) 8-22 [facility] 160 MG 17:30: mouth Medical tablet 42 daily. [place] gabapentin 2018-0 Yes 300mg QD Take [address] (NEURONTIN) 8-22 [facility] 300 MG 17:30: mouth Medical capsule 42 nightly. [place] citalopram 2018-0 Yes 20mg QD Take [address] (CELEXA) 20 8-22 by mouth [facility] MG tablet 17:30: daily. [address] rOPINIRole 2018-0 Yes 24mg QD Take [address] 12 mg Tb24 8-22 [facility] 17:30: daily. [address] Vital Signs Vital Name Observation Time Observation Value Comments Source Body height 2022-05-05 19:16:[facility] 2022-05-05 19:16:00 [facility] BMI 2022-05-05 19:16:00 35[facility]15 [facility] Height 2020-06-15 20:20:00 157.48 CM Weight 2020-06-15 20:20:00 76.2 KG Height 2020-01-20 23:57:00 160.02 CM Weight 2020-01-20 23:57:00 72.57 KG Height 2020-01-14 18:05:00 160.02 CM Weight 2020-01-14 18:05:00 77.11 KG Heart Rate 2022-08-15 17:30:50 [facility] [place] Temperature Oral (F) 2022-08-15 17:30:43 99.1 F [facility] [place] Systolic (mm Hg) 2022-08-15 17:30:41 Omari rial [place] Diastolic (mm Hg) 2022-08-15 17:30:41 Mem orial [place] Height 2022-08-14 18:14:00 5 [ft_i] [facility] [place] Weight 2022-08-14 18:14:00 [facility] [place] BMI Calculated 2022-08-14 18:14:00 Memori al [place] Systolic (mm Hg) 2022-06-19 08:18:00 Omari rial [place] Diastolic (mm Hg) 2022-06-19 08:18:00 Mem orial [place] Temperature Oral (F) 2022-06-19 08:18:00 98.6 F [facility] [place] Heart Rate 2022-06-19 08:18:00 [facility] [place] Height 2022-06-19 03:50:00 167.64 cm [facility] [place] BMI Calculated 2022-06-19 03:50:00 Memori [facility] [place] Weight 2022-06-19 03:50:00 [facility] [place] Respitory Rate 2022-05-20 21:30:00 Memori al [place] Systolic (mm Hg) 2022-05-20 21:30:00 Omari rial [place] Diastolic (mm Hg) 2022-05-20 21:30:00 Mem orial [place] Respitory Rate 2022-05-20 21:15:00 Memori al [place] Systolic (mm Hg) 2022-05-20 21:15:00 Omari rial [place] Diastolic (mm Hg) 2022-05-20 21:15:00 Mem orial [place] Respitory Rate 2022-05-20 21:00:00 Memori al [place] Systolic (mm Hg) 2022-05-20 21:00:00 Omari rial [place] Diastolic (mm Hg) 2022-05-20 21:00:00 Mem orial [place] Heart Rate 2022-05-20 17:57:00 [facility] Height 2022-05-19 21:31:00 157.48 cm [facility] Weight 2022-05-19 21:31:00 [facility] BMI Calculated 2022-05-19 21:31:00 Memori al [place] Systolic blood 2022-04-17 15:09:00 152 mm[Hg] [facility] pressure Diastolic blood 2022-04-17 15:09:00 84 mm[Hg] [facility] pressure Heart rate 2022-04-17 15:09:00 75 /min [facility] Body temperature 2022-04-17 15:09:00 36.78 [place] [facility] Body weight 2022-04-17 15:09:00 90.719 kg [facility] BMI 2022-04-17 15:09:00 35.43 kg/m2 [facility] Oxygen saturation in 2022-04-17 15:09:00 98 /min [facility] Arterial blood by Pulse oximetry Respitory Rate 2022-04-08 17:00:00 Memori al [place] Systolic (mm Hg) 2022-04-08 17:00:00 Omari rial [place] Diastolic (mm Hg) 2022-04-08 17:00:00 Mem o[facility] [place] Respitory Rate 2022-04-08 16:45:00 [facility] [place] Systolic (mm Hg) 2022-04-08 16:45:00 Omari rial [place] Diastolic (mm Hg) 2022-04-08 16:45:00 Mem orial [place] Respitory Rate 2022-04-08 16:30:00 Memori al [place] Systolic (mm Hg) 2022-04-08 16:30:00 Omari rial [place] Diastolic (mm Hg) 2022-04-08 16:30:00 Mem orial [place] Weight 2022-04-08 11:35:00 [facility] [place] BMI Calculated 2022-04-08 11:35:00 Memori al [place] Height 2022-04-03 17:28:00 160.02 cm [facility] [place] Heart Rate 2022-03-13 21:39:09 [facility] [place] Respitory Rate 2022-03-13 21:39:09 [facility] [place] Systolic (mm Hg) 2022-03-13 21:37:49 Omari rial [place] Diastolic (mm Hg) 2022-03-13 21:37:49 Mem orial [place] Heart Rate 2022-03-13 21:37:49 [facility] [place] Temperature Oral (F) 2022-03-13 21:37:45 98.5 F [facility] [place] Systolic (mm Hg) 2022-03-13 15:29:00 Omari rial [place] Diastolic (mm Hg) 2022-03-13 15:29:00 Mem orial [place] Respitory Rate 2022-03-13 15:29:00 Memori [facility] [place] Heart Rate 2022-03-13 15:29:00 [facility] [place] Temperature Oral (F) 2022-03-13 11:17:00 99.0 F [facility] [place] Respitory Rate 2022-03-13 11:17:00 Memori al [place] Systolic (mm Hg) 2022-03-13 11:17:00 Omari rial [place] Diastolic (mm Hg) 2022-03-13 11:17:00 Mem orial [place] Temperature Oral (F) 2022-03-13 06:29:50 98.7 F [facility] [place] Height 2022-03-10 09:38:00 165.1 cm [facility] [place] BMI Calculated 2022-03-10 09:38:00 Memori [facility] [place] Weight 2022-03-10 09:38:00 [facility] [place] Height 2022-03-10 03:28:00 165.1 cm [facility] [place] BMI Calculated 2022-03-10 03:28:00 Memori al [place] Weight 2022-03-10 03:28:00 [facility] [place] Height 2022-03-10 01:07:00 165.1 cm [facility] [place] BMI Calculated 2022-03-10 01:07:00 Memori al [place] Weight 2022-03-10 01:07:00 [facility] [place] Temperature Oral (F) 2021-05-13 00:34:00 98.1 F [facility] [place] Heart Rate 2021-05-13 00:34:00 [facility] [place] Respitory Rate 2021-05-13 00:34:00 Memori al [place] Systolic (mm Hg) 2021-05-13 00:34:00 Omari rial [place] Diastolic (mm Hg) 2021-05-13 00:34:00 Mem orial [place] Temperature Oral (F) 2021-05-12 21:49:00 98 F [facility] [place] Heart Rate 2021-05-12 21:49:00 [facility] [place] Respitory Rate 2021-05-12 21:49:00 Memori al [place] Systolic (mm Hg) 2021-05-12 21:49:00 Omari rial [place] Diastolic (mm Hg) 2021-05-12 21:49:00 Mem orial [place] Systolic (mm Hg) 2021-05-12 17:01:00 Omari rial [place] Diastolic (mm Hg) 2021-05-12 17:01:00 Mem [facility] [place] Respitory Rate 2021-05-12 17:01:00 Memori al [place] Heart Rate 2021-05-12 17:01:00 [facility] [place] Temperature Oral (F) 2021-05-12 17:01:00 98 F [facility] [place] Weight 2021-05-09 14:00:00 [facility] [place] Temperature Oral (F) 2021-05-05 09:23:00 97.7 F [facility] [place] Respitory Rate 2021-05-05 09:23:00 Memori al [place] Heart Rate 2021-05-05 09:23:00 [facility] [place] Systolic (mm Hg) 2021-05-05 09:23:00 Omari rial [place] Diastolic (mm Hg) 2021-05-05 09:23:00 Mem orial [place] Temperature Oral (F) 2021-05-05 04:33:00 97.8 F [facility] [place] Heart Rate 2021-05-05 04:33:00 [facility] [place] Respitory Rate 2021-05-05 04:33:00 Memori al [place] Systolic (mm Hg) 2021-05-05 04:33:00 Omari rial [place] Diastolic (mm Hg) 2021-05-05 04:33:00 Mem orial [place] Heart Rate 2021-05-05 01:10:00 [facility] [place] Systolic (mm Hg) 2021-05-05 01:10:00 Omari rial [place] Diastolic (mm Hg) 2021-05-05 01:10:00 Mem orial [place] Temperature Oral (F) 2021-05-05 00:03:00 97.6 F [facility] [place] Respitory Rate 2021-05-05 00:03:00 Memori al [place] Height 2021-05-02 09:11:00 160.02 cm [facility] [place] Weight 2021-05-02 09:11:00 [facility] [place] BMI Calculated 2021-05-02 09:11:00 [facility] [place] Height 2021-05-02 06:26:00 160.02 cm [facility] [place] Weight 2021-05-02 06:26:00 [facility] [place] Height 2021-05-01 22:53:00 160.02 cm [facility] [place] BMI Calculated 2021-05-01 22:53:00 [facility] [place] Weight 2021-05-01 22:53:00 [facility] [place] Respitory Rate 2021-04-23 16:03:00 Mem[facility] [place] Systolic (mm Hg) 2021-04-23 16:03:00 Omari rial [place] Diastolic (mm Hg) 2021-04-23 16:03:00 Mem o[facility] [place] Temperature Oral (F) 2021-04-23 16:03:00 98.7 F [facility] [place] Respitory Rate 2021-04-23 15:39:00 Memori al [place] Systolic (mm Hg) 2021-04-23 15:39:00 Omari rial [place] Diastolic (mm Hg) 2021-04-23 15:39:00 Mem o[facility] [place] Respitory Rate 2021-04-23 14:00:00 Memori al [place] Systolic (mm Hg) 2021-04-23 12:44:00 Omari rial [place] Diastolic (mm Hg) 2021-04-23 12:44:00 Mem orial [place] Temperature Oral (F) 2021-04-23 12:44:00 98.3 F [facility] [place] Weight 2021-04-23 10:37:00 [facility] [place] Heart Rate 2021-04-23 10:37:00 [facility] [place] Temperature Oral (F) 2021-04-23 10:37:00 100.2 F [facility] [place] Temperature Oral (F) 2021-04-18 06:42:00 98.4 F [facility] [place] Heart Rate 2021-04-18 06:42:00 [facility] [place] Respitory Rate 2021-04-18 06:42:00 Memori al [place] Systolic (mm Hg) 2021-04-18 06:42:00 Omari rial [place] Diastolic (mm Hg) 2021-04-18 06:42:00 Mem orial [place] Height 2021-04-18 05:28:00 160.02 cm [facility] [place] BMI Calculated 2021-04-18 05:28:00 [facility] [place] Weight 2021-04-18 05:28:00 [facility] [place] Systolic (mm Hg) 2021-04-18 05:28:00 [facility] [place] Diastolic (mm Hg) 2021-04-18 05:28:00 [facility] [place] Heart Rate 2021-04-18 05:28:00 [facility] [place] Respitory Rate 2021-04-18 05:28:00 [facility] [place] Temperature Oral (F) 2021-04-18 05:28:00 98.6 F [facility] Procedures Procedure Date / Time Performing Clinician Source Performed CAST APPLICATION 2022-05-26 19:38:13 Tori [facility] CAST APPLICATION 2022-04-20 20:02:[address] [facility] [address] ANGIOGRAM CHEST W WO 2022-04-16 18:59:36 [place] [facility] CONTRAST POC CREATININE 2022-04-16 18:38:00 [place] [facility]3] ESTIMATED GFR 2022-04-16 18:38:00 [place] [facility]3] CAST APPLICATION 2022-03-30 20:16:[address] [facility] [address] CHEST EXTERNAL STUDY 2022-03-12 16:27:38 Joey Timmons [facility] NECK EXTERNAL STUDY 2022-03-11 02:53:05 [facility] LOWER EXTREMITY 2022-03-10 14:14:27 [facility] EXTERNAL STUDY Boo XR LOWER EXTREMITY 2022-03-10 09:43:23 [facility] EXTERNAL STUDY Boo XR LOWER EXTREMITY 2022-03-10 09:38:07 [facility] EXTERNAL STUDY Boo CT CHEST ABD PEL EXTERNAL 2022-03-10 07:12:46 [facility] STUDY Boo CT HEAD EXTERNAL STUDY 2022-03-10 07:10:40 [facility] Boo CT SPINE EXTERNAL STUDY 2022-03-10 07:10:40 [facility] Boo XR LOWER EXTREMITY 2022-03-10 06:47:01 [facility] EXTERNAL STUDY Boo XR LOWER EXTREMITY 2022-03-10 06:45:50 [facility] EXTERNAL STUDY Boo XR UPPER EXTREMITY 2022-03-10 06:41:53 [facility] EXTERNAL STUDY Boo XR LOWER EXTREMITY 2022-03-10 04:16:03 [facility] EXTERNAL STUDY Boo XR LOWER EXTREMITY 2022-03-10 01:35:15 [facility] EXTERNAL STUDY Boo XR UPPER EXTREMITY 2022-03-10 01:33:17 [facility] EXTERNAL STUDY Boo XR LOWER EXTREMITY 2022-03-10 01:30:10 [facility] EXTERNAL STUDY Boo XR UPPER EXTREMITY 2022-03-10 01:29:20 [facility] EXTERNAL STUDY Boo REPOS RT TOE PHALANG 2020-01-14 00:00:00 [facility] JOINT EXTERNAL Center IMMOBILIZATION RT TOE 2020-01-14 00:00:00 [facility] OTHER DEVICE Center [facility] Arthroscopy of shoulder [facility] Plan of Care Planned Activity Planned Date Details Comments Source Future Scheduled 2023-07-31 COVID-19 VACCINE (#1) [facility] Test 08:16:41 [code = COVID-19 VACCINE (#1)] Future Scheduled 2023-07-31 Hepatitis C screening [facility] Test 08:16:41 (procedure) [code = 093325799] Future Scheduled 2023-07-31 Screening for [facility] Test 08:16:41 malignant neoplasm of cervix (procedure) [code = 031430397] Future Scheduled 2023-07-31 BREAST CANCER [facility] Test 08:16:41 SCREENING [code = BREAST CANCER SCREENING] Future Scheduled 2023-07-31 SHINGLES VACCINES (1 [facility] Test 08:16:41 of 2) [code = SHINGLES VACCINES (1 of 2)] Future Scheduled 2023-07-31 65+ [facility] 08:16:41 VACCINE (1 - PCV) [code = 65+ PNEUMOCOCCAL VACCINE (1 - PCV)] Future Scheduled 2023-07-31 INFLUENZA VACCINE (#1) [facility] Test 08:16:41 [code = INFLUENZA VACCINE (#1)] Future Scheduled 2022-07-06 HEPATITIS B VACCINES [facility] Test 01:24:26 (1 of 3 - 3-dose series) [code = HEPATITIS B VACCINES (1 of 3 - 3-dose series)] Future Scheduled 2022-07-06 COVID-19 VACCINE (#1) [facility] Test 01:24:26 [code = COVID-19 VACCINE (#1)] Future Scheduled 2022-07-06 Hepatitis C screening [facility] Test 01:24:26 (procedure) [code = 339284411] Future Scheduled 2022-07-06 Screening for [facility] Test 01:24:26 malignant neoplasm of cervix (procedure) [code = 396369758] Future Scheduled 2022-07-06 BREAST CANCER [facility] Test 01:24:26 SCREENING [code = BREAST CANCER SCREENING] Future Scheduled 2022-07-06 COLONOSCOPY SCREENING [facility] Test 01:24:26 [code = COLONOSCOPY SCREENING] Future Scheduled 2022-07-06 SHINGLES VACCINES (1 [facility] Test 01:24:26 of 2) [code = SHINGLES VACCINES (1 of 2)] Future Scheduled 2022-07-06 INFLUENZA VACCINE Method [facility] Test 01:24:26 [code = INFLUENZA VACCINE] Future Scheduled 2022-05-05 INFLUENZA VACCINE [facility] Test 14:02:08 [code = INFLUENZA VACCINE] Future Scheduled 2022-05-05 HEPATITIS B VACCINES [facility] Test 14:02:08 (1 of 3 - 3-dose series) [code = HEPATITIS B VACCINES (1 of 3 - 3-dose series)] Future Scheduled 2022-05-05 COVID-19 VACCINE (#1) [facility] Test 14:02:08 [code = COVID-19 VACCINE (#1)] Future Scheduled 2022-05-05 Hepatitis C screening [facility] Test 14:02:08 (procedure) [code = 342842519] Future Scheduled 2022-05-05 Screening for [facility] Test 14:02:08 malignant neoplasm of cervix (procedure) [code = 194225215] Future Scheduled 2022-05-05 BREAST CANCER [facility] Test 14:02:08 SCREENING [code = BREAST CANCER SCREENING] Future Scheduled 2022-05-05 COLONOSCOPY SCREENING [facility] Test 14:02:08 [code = COLONOSCOPY SCREENING] Future Scheduled 2022-05-05 SHINGLES VACCINES (1 [facility] Test 14:02:08 of 2) [code = SHINGLES VACCINES (1 of 2)] Future Scheduled 2022-05-05 INFLUENZA VACCINE Method [facility] Test 14:02:08 [code = INFLUENZA VACCINE] Future Scheduled 2022-05-05 HEPATITIS B VACCINES [facility] Test 14:02:08 (1 of 3 - 3-dose series) [code = HEPATITIS B VACCINES (1 of 3 - 3-dose series)] Future Scheduled 2022-05-05 COVID-19 VACCINE (#1) [facility] Test 14:02:08 [code = COVID-19 VACCINE (#1)] Future Scheduled 2022-05-05 Hepatitis C screening [facility] Test 14:02:08 (procedure) [code = 627043794] Future Scheduled 2022-05-05 Screening for [facility] Test 14:02:08 malignant neoplasm of cervix (procedure) [code = 287719559] Future Scheduled 2022-05-05 BREAST CANCER [facility] Test 14:02:08 SCREENING [code = BREAST CANCER SCREENING] Future Scheduled 2022-05-05 COLONOSCOPY SCREENING [facility] Test 14:02:08 [code = COLONOSCOPY SCREENING] Future Scheduled 2022-05-05 SHINGLES VACCINES (1 [facility] Test 14:02:08 of 2) [code = SHINGLES VACCINES (1 of 2)] Encounters Start End Encounter Admission Attending Care Care Encounter Source Date/Time Date/Time Type Type Clinicians Facility Department ID 2022-08-15 Outpatient [facility] [id number] [place] 13:58:[id number] [facility] 2021-06-14 Outpatient MAGDA THOMAS MDA [id number] 11:14:48 PROVIDER Adelso o n 2021-04-30 Inpatient ER [facility] [id number] 16:13:02 Anderso n 2021-04-28 Inpatient ER [facility] [id number] 15:19:44 Anderso n 2023-08-01 2023-08-01 Outpatient BASIL BOCANEGRA [id number] Ifrah 00:00:00 00:00:00 Seybol d 2023-01-05 2023-01-05 Outpatient Baum_L [facility] [id number] [place] 00:00:00 00:00:00 [id number] [facility] 2022-08-17 2022-08-17 Outpatient BASIL BOCANEGRASEY [id number] Ifrah 00:00:00 00:00:00 Seybol d 2022-08-14 2022-08-[facility] [id number] Memoria 09:24:00 23:24:00 n Pietro 07 l [place] 2022-08-14 2022-08-15 Outpatient Eric VALVERDE [facility] MED [id number] MHFB 06:38:00 17:24:00 SYED AVALOS 2022-08-14 2022-08-15 Out[facility] [id number] 03:24:00 17:24:00 Christa Avalos 2022-06-29 2022-06-29 Outpatient JHOAN [facility] [id number] [place] 10:15:00 10:15:00 [facility] 2022-06-23 2022-06-23 Outpatient FESTUS [facility] [id number] [place] 14:00:00 14:00:[address] [facility] 2022-06-19 2022-06-19 Emergency [facility] [id number] Memoria 03:22:57 08:20:00 r Pietro 06 l [place] 2022-06-18 2022-06-19 Outpatient Bing Mcpherson [facility] [id number] 22:22:57 03:20:00 06 2022-06-18 2022-06-19 Emergency E BING MCPHERSON FB FB [id number] [facility] 22:22:00 03:20:00 2022-06-09 2022-06-09 Office YAEL Mortensen [facility] 1.2.840.114 [id number] [place] 13:30:00 13:51:54 Visit Stone SUGAR 350.1.13.58 [facility] [place] 9.2.7.2.686 [address] [id number] 1 2022-06-09 2022-06-09 Outpatient [facility] [id number] [place] 00:00:00 13:51:14 Health 2022-05-29 2022-05-29 Office YAEL STAPLES [facility] [id number] [id number] [place] 11:30:00 14:25:14 Visit JEREMY SUGAR 350.1.13.58 He alth [place] 9.2.7.2.686 [id number] 1 2022-05-29 2022-05-29 Outpatient [facility] [id number] [place] 00:00:00 14:24:45 Health 2022-05-26 2022-05-26 Outpatient [facility] [id number] [place] 00:00:00 15:17:24 Health 2022-05-26 2022-05-26 Office Festus [facility] 1.2.840.114 [id number] [place] 14:15:00 14:49:41 Visit Stone SUGAR 350.1.13.58 [facility] [place] 9.2.7.2.[address] [id number] 1 2022-05-26 2022-05-26 Outpatient JHOAN [facility] [id number] [place] 14:00:00 14:00:00 JEREMY Health 2022-05-25 2022-05-25 [facility] [id number] [place] 10:45:00 10:45:00 STONE [facility]alt [facility] 2022-05-20 2022-05-20 [facility] [id number] [facility] 15:58:00 22:15:00 Surgery r [place] 05 l [place] 2022-05-20 2022-05-20 Outpatient FESTUS, MHFB MHFB [id number] MHFB 10:58:00 17:15:00 STONE 2022-05-20 2022-05-20 Outpatient Festus, MHSL [email or web address] [id number] 10:58:00 17:15:00 Stone Flavio Owen 2022-05-20 2022-05-20 Outpatient Festus, MHSL SL [id number] 10:58:00 17:15:00 Stone Flavio Clint 2022-05-20 2022-05-20 Outpatient FESTUS, [facility] [id number] [place] 14:15:00 14:15:00 STONE Healt 2022-05-19 2022-05-19 Telephonic Festus [facility] 1.2.840.114 [id number] [place] 14:15:00 14:30:00 Encounter Stone SUGAR 350.1.13.58 [facility] 9.2.7.2.686 PLAZA 2 [id number] 1 2022-05-11 2022-05-11 Office Festus [facility] 1.2.840.114 [id number] [place] 11:00:00 12:01:44 Visit Stone SUGAR 350.1.13.58 H [facility] 9.2.7.2.686 PLA[address] 2 [id number] 1 2022-05-11 2022-05-11 Outpatient [facility] [id number] [place] 00:00:00 12:01:33 Health 2022-05-07 2022-05-07 Outpatient FESTUS, [facility] [id number] [place] 13:30:00 13:30:00 STONE Healt h 2022-05-05 2022-05-05 Outpatient [facility] [id number] [place] 00:00:00 16:33:19 Health 2022-05-05 2022-05-05 Office YAEL STAPLES [facility]TH[facility] [id number] [id number] [place] 14:00:00 16:32:51 Visit JEREMY SUGAR 350.1.13.58 He alth [place] 9.2.7.2.686 [id number] 1 2022-04-20 2022-04-20 Office YAEL Staples ORTHO 1.2.329.259 [id number] [place] 14:00:00 14:54:55 Visit Jeremy SUGAR 350.1.13.58 He alth [place] 9.2.7.2.686 [id number] 1 2022-04-20 2022-04-20 Outpatient [facility] [id number] [place] 14:35:00 14:35:00 Health 2022-04-20 2022-04-20 Outpatient [facility] [id number] [place] 14:30:00 14:30:00 Health 2022-04-17 2022-04-17 Office Reinier, 1.2.840.1 [id number] Methodi 10:00:00 13:01:13 Visit Ming 95852.1.[address] Khalid 3.430.2.7 Hospit a .3.365882 l .8 2022-04-16 2022-04-16 [facility] 1.2.840.1 [id number] Methodi 13:19:50 23:59:00 Encounter Ming 97655.1.[address] Khalid 3.430.2.7 Hospit a .3.216909 l .8 2022-04-16 2022-04-16 Travel 1.2.840.1 1.2.939.489 [id number] Methodi 00:00:00 00:00:[address] 3.430.2.7 0.2.7.3.698 Ho spita .3.247239 084.8 l .8 2022-04-15 2022-04-15 Office Festus, [facility] 1.2.840.114 [id number] [place] 11:00:00 12:16:18 Visit Stone SUGAR 350.1.13.58 H [facility] 9.2.7.2.686 PLA[address] 2 [id number] 1 2022-04-15 2022-04-15 Outpatient [facility] [id number] [place] 00:05:00 12:16:08 Health 2022-04-15 2022-04-15 Outpatient [facility] [id number] [place] 00:00:00 12:15:49 Health 2022-04-08 2022-04-08 [facility] [id number] [facility] 11:13:00 17:20:00 Surgery r [place] 04 l [place] 2022-04-08 2022-04-08 Outpatient FESTUS, MHFB MHFB [id number] MHFB 06:13:00 12:20:00 STONE 2022-04-08 2022-04-08 Outpatient Festus, MHSL MHSL [id number] 06:13:00 12:20:00 Stone 04 [facility] 2022-04-08 2022-04-08 Outpatient Festus, MHSL SL [id number] 06:13:00 12:20:00 Stone 04 [facility] 2022-04-08 2022-04-08 Outpatient FESTUS, [facility] [id number] [place] 08:30:00 08:30:00 STONE Healt h 2022-04-02 2022-04-02 Outpatient [facility] [id number] [place] 00:00:00 15:02:57 Health 2022-04-02 2022-04-02 Office YAEL Mortensen [facility] 1.2.840.114 [id number] [place] 14:00:00 15:02:34 Visit Stone SUGAR 350.1.13.58 H [facility] [place] [facility] 9.2.7.2.686 [address] 2 [id number] 1 2022-03-30 2022-03-30 Office YAEL Staples [facility] 1.2.267.941 [id number] [place] 15:30:00 15:30:00 Visit Jeremy SUGAR 350.1.13.58 alth [place] 9.2.7.2.686 [id number] 1 2022-03-30 2022-03-30 Outpatient [facility] [id number] [place] 00:05:00 15:11:17 Health 2022-03-30 2022-03-30 Outpatient [facility] [id number] [place] 00:00:00 15:10:23 Health 2022-03-25 2022-03-25 Travel 1.2.840.1 1.2.313.124 [id number] Methodi 00:00:00 00:00:[address] 3.430.2.7 0.2.7.3.698 Ho spita .3.361978 084.8 l .8 2022-03-25 2022-03-25 Orders [place], 1.2.840.1 [id number] Methodi 00:00:00 00:00:00 Only Samantha 24652.1.[address] 3.430.2.7 Hospit a .3.465801 l .8 2022-03-18 2022-03-18 [facility], 1.2.840.1 [id number] Methodi 14:26:34 23:59:00 Encounter Joey 85943.1.[address] Boo 3.430.2.7 Hospit a .3.703162 l .8 2022-03-18 2022-03-18 [facility], 1.2.840.1 [id number] Methodi 14:09:11 14:25:00 Encounter Joey 37443.1.[address] Boo 3.430.2.7 Hospit a .3.831373 l .8 2022-03-18 2022-03-18 [facility], 1.2.840.1 [id number] Methodi 13:54:51 14:08:00 Encounter Joey 44063.1.[address] Boo 3.430.2.7 Hospit a .3.314767 l .8 2022-03-18 2022-03-18 [facility], 1.2.840.1 [id number] Methodi 13:50:10 13:53:00 Encounter Joey 50360.1.[address] Boo 3.430.2.7 Hospit a .3.049883 l .8 2022-03-18 2022-03-18 [facility], 1.2.840.1 [id number] 81616 Methodi 13:49:39 13:49:39 Encounter Joey 05543.1.[address] Boo 3.430.2.7 Hospit a .3.503852 l .8 2022-03-18 2022-03-18 [facility], 1.2.840.1 [id number] Methodi 13:49:32 13:49:32 Encounter Joey 94411.1.[address] Boo 3.430.2.7 Hospit a .3.070106 l .8 2022-03-18 2022-03-18 [facility], 1.2.840.1 [id number] 64603 Methodi 13:48:00 13:48:00 Encounter Joey 72082.1.[address] Boo 3.430.2.7 Hospit a .3.962964 l .8 2022-03-18 2022-03-18 [facility], 1.2.840.1 [id number] 80738 Methodi 13:32:29 13:47:00 Encounter Joey 93223.1.[address] Boo 3.430.2.7 Hospit a .3.250016 l .8 2022-03-18 2022-03-18 [facility], 1.2.840.1 [id number] Methodi 13:07:06 13:31:00 Encounter Joey 35378.1.[address] Boo 3.430.2.7 Hospit a .3.583858 l .8 2022-03-18 2022-03-18 [facility], 1.2.840.1 [id number] Methodi 13:06:17 13:06:17 Encounter Joey 35432.1.[address] Boo 3.430.2.7 Hospit a .3.097157 l .8 2022-03-18 2022-03-18 [facility], 1.2.840.1 [id number] Methodi 12:42:06 13:05:00 Encounter Joey 18597.1.[address] Boo 3.430.2.7 Hospit a .3.242642 l .8 2022-03-18 2022-03-18 [facility], 1.2.840.1 [id number] Methodi 12:40:23 12:41:00 Encounter Joey 83361.1.[address] Boo 3.430.2.7 Hospit a .3.486889 l .8 2022-03-18 2022-03-18 [facility], 1.2.840.1 [id number] Methodi 12:39:55 12:39:55 Encounter Joey 15110.1.[address] Boo 3.430.2.7 Hospit a .3.150733 l .8 2022-03-18 2022-03-18 [facility], 1.2.840.1 [id number] Methodi 12:39:24 12:39:24 Encounter Joey 05141.1.[address] Boo 3.430.2.7 Hospit a .3.177399 l .8 2022-03-18 2022-03-18 [facility], 1.2.840.1 [id number] Methodi 12:38:45 12:38:45 Encounter Joey 71485.1.[address] Boo 3.430.2.7 Hospit a .3.808439 l .8 2022-03-18 2022-03-18 [facility], 1.2.840.1 [id number] Methodi 12:38:24 12:38:24 Encounter Joey 81502.1.[address] Boo 3.430.2.7 Hospit a .3.071628 l .8 2022-03-18 2022-03-18 [facility], 1.2.840.1 [id number] 7296 Methodi 00:00:00 00:00:00 Only Joey 87470.1.[address] Boo 3.430.2.7 Hospit a .3.239969 l .8 2022-03-172022-03-17 Telephone Anthony, 1.2.840.1 [id number] Methodi 00:00:00 00:00:[address] 3.430.2.7 Hospit a .3.577906 l .8 2022-03-16 2022-03-16 Telephone Aldo, 1.2.840.1 [id number] [id number] Methodi 00:00:00 00:00:[address] [facility] 3.430.2.7 Hosp karen .3.973508 l .8 2022-03-09 2022-03-13 Observatio nullFlavo [facility] 4140 [id number] Memoria 23:44:22 23:20:00 rajesh [place] 03 [facility] 2022-03-09 2022-03-13 Outpatient Eligio [facility] [id number] 18:44:22 18:20:00 [place] [address] [place] 2022-03-09 2022-03-13 Outpatient Eligio [facility] [id number] 18:44:22 18:20:00 [place] [address] [place] 2022-03-09 2022-03-13 Outpatient Eric DEL VALLE [facility] [id number] [facility] 18:44:00 18:20:00 [facility] 2021-05-01 2021-05-13 Inpatient [facility] [id number] Memoria 22:37:12 01:10:00 alex [facility] 02 [facility] 2021-05-01 2021-05-12 Inpatient E KY ESPINOZA FB MED [id number] MHFB 22:48:00 20:10:00 2021-05-01 2021-05-12 Outpatient Ky Espinoza [facility] [id number] 17:37:12 20:10:00 02 2021-05-01 2021-05-12 Outpatient Ky Espinoza SL SL [id number] 17:37:12 20:10:00 02 2021-05-01 2021-05-01 Outpatient Martinez [facility] [id number] 17:37:12 17:37:12 Bailey, Adrianna Syed Lopez 2021-04-23 2021-04-23 Emergency nullFlavo [facility] [id number] Memoria 10:36:11 16:07:00 r Pietro 01 l [place] 2021-04-23 2021-04-23 Outpatient Aldo, MHSL MHSL [id number] 05:36:11 11:07:00 Skylar Ly 2021-04-23 2021-04-23 Outpatient Aldo, MHSL MHSL [id number] 05:36:11 11:07:00 Skylar 01 Ly 2021-04-23 2021-04-23 Emergency E ALDO FB MHFB [id number] MHFB 05:36:00 11:07:00 SKYLAR 2021-04-18 2021-04-18 Emergency nullFlavo [facility] [id number] Memoria 05:05:11 06:44:00 r Pietro 00 l [place] 2021-04-18 2021-04-18 [id number] 00:05:11 01:44:00 00 2021-04-18 2021-04-18 Outpatient Bing Mcpherson S MHSL [id number] 00:05:11 01:44:00 00 2021-04-18 2021-04-18 Emergency E BING MCPHERSON FB MHFB [id number] MHFB 00:05:00 01:44:00 2020-11-11 2020-11-11 Emergency POPE, [facility] [id number] 70 [place] 00:00:00 00:00:00 JACQUI [address] 2020-06-15 2020-06-15 Emergency E FELICITY MÁRQUEZ [facility] [id number] [place] 20:18:00 22:52:00 Medica l [place] 2020-01-19 2020-01-19 Outpatient SREEDHAR BARR [facility] [id number] [place] 00:00:00 00:00:[address] 2020-01-19 2020-01-19 Outpatient SREEDHAR BARR [facility] 2099 [id number] [place] 00:00:00 00:00:[address] 2020-01-19 2020-01-19 Outpatient SREEDHAR BARR [facility] 2099 [id number] [place] 00:00:00 00:00:00 652 Method i 2020-01-19 2020-01-19 Outpatient SREEDHAR BARR [facility] 2099 [id number] [place] 00:00:00 00:00:00 909 Method i 2020-01-14 2020-01-14 Emergency E FLAKITA, [facility] [id number] [facility] 17:11:00 20:09:00 [facility] Results Test Description Test Time Test Comments Results Result Comments Source HEMATOLOGY 2022-08-14 21:08:00 Test Item Value Reference Range Interpretation Comme nts Hgb (test code = Hgb) 11.8 12.0-16.0 [facility] [id number] 21:08:00 Test Item Value Reference Range Interpretation Comments Hct (test code = Hct) 36.2 36.0-48.0 [facility] [id number] 11:24:00 Test Item Value Reference Range Interpretation Comments UA Color (test code = Yellow *NA*(08/14/22 UA Color) 5:24 AM) [facility] [id number] 11:24:00 Test Item Value Reference Range Interpretation Comments UA Turbidity (test code = Clear (08/14/22 5:24 UA Turbidity) AM) [facility] [id number] 11:24:00 Test Item Value Reference Range Interpretation Comments UA Spec Grav (test code = UA Spec 1.015 1 Grav) [facility] [id number] 11:24:00 Test Item Value Reference Range Interpretation Comments UA pH (test code = UA pH) 7.0 1 5.0-8.0 [facility] [id number] 11:24:00 Test Item Value Reference Range Interpretation Comments UA Protein (test code = UA Protein) 30 mg/dL [facility] [id number] 11:24:00 Test Item Value Reference Range Interpretation Comments UA Glucose (test code Negative (08/14/22 5:24 = UA Glucose) AM) [facility] [id number] 11:24:00 Test Item Value Reference Range Interpretation Comments UA Ketones (test code = >=80 *ABN*(08/14/22 UA Ketones) 5:24 AM) [facility] [id number] 11:24:00 Test Item Value Reference Range Interpretation Comments UA Bili (test code = Moderate *ABN*(08/14/22 UA Bili) 5:24 AM) [facility] [id number] 11:24:00 Test Item Value Reference Range Interpretation Comments UA Blood (test code = Negative (08/14/22 5:24 UA Blood) AM) [facility] [id number] 11:24:00 Test Item Value Reference Range Interpretation Comments UA Urobilinogen (test code = UA 0.2 0.1-1.0 Urobilinogen) [facility] [id number] 11:24:00 Test Item Value Reference Range Interpretation Comments UA Nitrite (test code Negative (08/14/22 5:24 = UA Nitrite) AM) [facility] [id number] 11:24:00 Test Item Value Reference Range Interpretation Comments UA Leuk Est (test code Trace *ABN*(08/14/22 = UA Leuk Est) 5:24 AM) [facility] [id number] 11:24:00 Test Item Value Reference Range Interpretation Comments UA Sq Epi (test code = UA Sq Epi) Few /LPF [facility] [id number] 11:24:00 Test Item Value Reference Range Interpretation Comments UA WBC (test code = UA WBC) 16 <=5 [facility] [id number] 11:24:00 Test Item Value Reference Range Interpretation Comments UA RBC (test code = UA RBC) 7 <=2 [facility] [id number] 11:24:00 Test Item Value Reference Range Interpretation Comments UA Mucus (test code = UA Mucus) Moderate /LPF [facility] [id number] 11:24:00 Test Item Value Reference Range Interpretation Comments UA Amorph Carine (test code = Occasional /HPF UA Amorph Carine) [facility] [id number] 11:24:00 Test Item Value Reference Range Interpretation Comments UA Hyal Cast (test code = UA Hyal Cast) 6 <=2 [facility] [id number] 11:24:00 Test Item Value Reference Range Interpretation Comments Culture: Urine (test 10,000 - 50,000 CFU/mL code = Culture: Urine) [id number] 11:06:00 Test Item Value Reference Range Interpretation Comments HS Troponin I 1 Hr (test code = HS 26 Troponin I 1 Hr) [place] [id number] 11:06:00 Test Item Value Reference Range Interpretation Comments HS Troponin I 0 to 1 Hour Delta (test 1 1 code = HS Troponin I 0 to 1 Hour Delta) [place] [id number] 10:35:43 Test Item Value Reference Range Interpretation Comments RADRPT (test code = Chest 1view DX RADRPT) 08/14/2022 3:48 INDICATION: - chest painCOMPARISON: 05/09/2021.FINDINGS: Lines and tubes: Interval removal of right-sided PICC.Lungs/mediastinum: Clear lungs.No pleural effusion.No pneumothorax.Heart: Normal in size.Bones: No acute bony change. Upper abdomen: No acute findings in the upper abdomen. IMPRESSION:1. No acute findings.2. Interval removal of right-sided PICC. [place] [id number] 10:33:13 Test Item Value Reference Range Interpretation Comments RADRPT (test EXAM: CT ABDOMEN AND PELVIS code = RADRPT) WITHOUT CONTRASTDATE: 08/14/2022 3:48 INDICATION: - bilateral upper abd pain with vomiting/diarrhea ADDITIONAL INFORMATION: None.COMPARISON: CT abdomen pelvis 06/18/2022TECHNIQUE: Volumetric CT acquisition of the abdomen and pelvis without intravenous contrast. Axial, coronal and sagittal reconstructions.IV contrast: None.Enteric contrast: None.DLP: 425.1 mGy-cmAEC, mA/kV adjustment by patient size, and/or iterative reconstruction technique were used, per departmental dose-optimization program.FINDINGS: Evaluation of the solid organs and vasculature was limited by lack of IV contrast.Lines, tubes and hardware: None.Lower thorax: Clear.Liver: Normal.Biliary tree: No intra- or extrahepatic biliary ductal dilation.Gallbladder: Normal. No CT evidence of gallstones.Pancreas: Normal.Spleen: Normal.Adrenals: Normal.Kidneys and ureters: Prior partial left interpolar nephrectomy.Bladder: Normal.Reproductive organs: Unremarkable CT appearance of the uterusGastrointestinal tract:Stomach: Unremarkable. There is distal esophageal wall thickening with adjacent stranding.Small bowel: Normal.Colon: Normal.Appendix: Normal.Peritoneum, mesentery and retroperitoneum: No free air, ascites or loculated fluid.Lymph nodes: Normal.Vasculature: Mild atherosclerosis without abdominal aortic aneurysm.Bones: No acute abnormality. Chronic right 7th through 10th rib fracture deformities. There are degenerative changes in the lower lumbar spineSoft tissues: Tiny fat-containing umbilical hernia. Postsurgical changes in the left flank.IMPRESSION: 1. Distal esophageal wall thickening may represent esophagitis or be sequela of emesis. No evidence of bowel obstruction. [facility]villeFmsxvfrGNSFRLLUQ9115-09-25 10:04:00 Test Item Value Reference Range Interpretation Comments Glucose Lvl (test code = Glucose Lvl) 117 70-99 [facility]villeNmhzmxmVZQMQZAOL1424-68-23 10:04:00 Test Item Value Reference Range Interpretation Comments BUN (test code = BUN) 25 7-22 [facility]villeGnkulmdODWVOYXUJ2481-04-41 10:04:00 Test Item Value Reference Range Interpretation Comments Creatinine Lvl (test code = Creatinine 0.89 0.50-1.40 Lvl) [facility]villeUhcxelhUDZYZXKSN1884-93-12 10:04:00 Test Item Value Reference Range Interpretation Comments Sodium Lvl (test code = Sodium Lvl) 134 135-145 [facility] StephenvilleJhxslvpOTJTQQBKC6119-53-06 10:04:00 Test Item Value Reference Range Interpretation Comments Potassium Lvl (test code = Potassium 3.2 3.5-5.1 Lvl) [facility]villeArjcxjlOKQTWATVZ4657-09-34 10:04:00 Test Item Value Reference Range Interpretation Comments Chloride Lvl (test code = Chloride Lvl) 94 95-109 [facility]villeEhhdpmnDEPYKQVOV0307-95-27 10:04:00 Test Item Value Reference Range Interpretation Comments CO2 (test code = CO2) 33 24-32 [facility] StephenvilleJbwaofjZEBBWQCLH1717-36-86 10:04:00 Test Item Value Reference Range Interpretation Comments Calcium Lvl (test code = Calcium Lvl) 9.9 8.5-10.5 [facility] StephenvilleFephjezMALJSVIMB6315-78-97 10:04:00 Test Item Value Reference Range Interpretation Comments Total Protein (test code = Total 8.3 6.4-8.4 Protein) [facility] StephenvilleAyearsrUDWLIRTNS4381-26-84 10:04:00 Test Item Value Reference Range Interpretation Comments Albumin Lvl (test code = Albumin Lvl) 3.4 3.5-5.0 [facility]vvqutVSKZYWCWO9593-60-91 10:04:00 Test Item Value Reference Range Interpretation Comments ALT (test code = ALT) 14 <=65 [facility] IabqtjeWITTDLIBN9370-59-63 10:04:00 Test Item Value Reference Range Interpretation Comments AST (test code = AST) 10 <=37 [facility] KymivhtCGKWWREWS8076-04-77 10:04:00 Test Item Value Reference Range Interpretation Comments Alk Phos (test code = Alk Phos) 142 39-136 [facility] HospitalVmyspnrIPOUSPDTY1535-36-41 10:04:00 Test Item Value Reference Range Interpretation Comments Bili Total (test code = Bili Total) 0.4 0.2-1.3 [facility] HospitalRduzhxyMEJPTASPE8684-40-90 10:04:00 Test Item Value Reference Range Interpretation Comments AGAP (test code = AGAP) 10.2 10.0-20.0 [facility] HospitalMfnudkhWJSVCIVSZ2185-97-61 10:04:00 Test Item Value Reference Range Interpretation Comments B/C Ratio (test code = B/C Ratio) 28 1 6-25 [facility] HospitalWxaynioHUTUYPBRC4153-35-55 10:04:00 Test Item Value Reference Range Interpretation Comments Globulin (test code = Globulin) 4.9 2.7-4.2 [facility] HospitalXansoauMUGKTLUMP0331-79-83 10:04:00 Test Item Value Reference Range Interpretation Comments A/G Ratio (test code = A/G Ratio) 0.7 1 0.7-1.6 [facility] HospitalGjqppoaCOGPRKPDB7291-03-28 10:04:00 Test Item Value Reference Range Interpretation Comments eGFR (test code = eGFR) 72 [facility] HospitalCzauvfqFAJREJAEJ8984-10-88 10:04:00 Test Item Value Reference Range Interpretation Comments Amylase Lvl (test code = Amylase Lvl) 49 25-115 [facility] HospitalSzbwjfrKILXMULUD1732-82-62 10:04:00 Test Item Value Reference Range Interpretation Comments Lipase Lvl (test code = Lipase Lvl) 96 73-393 [facility] HospitalEghvkjsHJIKKTTJJ0153-90-40 10:04:00 Test Item Value Reference Range Interpretation Comments HS Troponin I Baseline (test code = HS 25 Troponin I Baseline) [facility] HospitalJigpoguIOQTBBMZUU8105-35-15 10:04:00 Test Item Value Reference Range Interpretation Comments WBC (test code = WBC) 15.9 3.7-10.4 [facility]NqgbbrrENBVCXJUAW0105-93-31 10:04:00 Test Item Value Reference Range Interpretation Comments RBC (test code = RBC) 4.56 4.20-5.40 [facility] HospitalLlyvowzQTVYKGLJRB8138-00-11 10:04:00 Test Item Value Reference Range Interpretation Comments MCV (test code = MCV) 87.5 80.0-98.0 [facility] HospitalBmekskgUNSYYLFDPV9778-26-05 10:04:00 Test Item Value Reference Range Interpretation Comments MCH (test code = MCH) 28.5 pg 27.0-31.0 [facility] HospitalJijikuiDXHMPPFHZW7320-08-85 10:04:00 Test Item Value Reference Range Interpretation Comments MCHC (test code = MCHC) 32.6 32.0-36.0 [facility] HospitalVknadufNGJGBANMXU5225-53-39 10:04:00 Test Item Value Reference Range Interpretation Comments RDW (test code = RDW) 13.5 11.5-14.5 [facility] HospitalLmpybkmDJXCGTOBJU4552-50-82 10:04:00 Test Item Value Reference Range Interpretation Comments Platelet (test code = Platelet) 366 133-450 [facility] HospitalBsratcjQZTXSDHBSB1502-94-15 10:04:00 Test Item Value Reference Range Interpretation Comments MPV (test code = MPV) 8.5 7.4-10.4 [place] 540762-12-16 10:04:00 Test Item Value Reference Range Interpretation Comments PT (test code = PT) 12.5 s 12.0-14.7 [place] 540762-12-16 10:04:00 Test Item Value Reference Range Interpretation Comments INR (test code = INR) 0.93 1 0.85-1.17 [place] [address]-12-16 10:04:00 Test Item Value Reference Range Interpretation Comments PTT (test code = PTT) 24.8 s 22.9-35.8 [place] 540762-12-16 10:04:00 Test Item Value Reference Range Interpretation Comments Segs (test code = Segs) 84.5 45.0-75.0 [facility] HospitalWwmczlcPEMMWQXAWO2511-13-70 10:04:00 Test Item Value Reference Range Interpretation Comments Lymphocytes (test code = Lymphocytes) 10.2 20.0-40.0 [facility] HospitalCopwxycYTJQNKLHPC7682-67-70 10:04:00 Test Item Value Reference Range Interpretation Comments Monocytes (test code = Monocytes) 4.9 2.0-12.0 [facility] HospitalGuojtucCBEKKCXMTH5408-26-72 10:04:00 Test Item Value Reference Range Interpretation Comments Basophils (test code = Basophils) 0.4 <=1.0 [facility] GurrvzsASHZOIEKYD2411-16-80 10:04:00 Test Item Value Reference Range Interpretation Comments Neutrophils # (test code = Neutrophils 13.4 1.5-8.1 #) [facility]PwjsnhxRXQORFGJTJ7000-05-[facility] 10:04:00 Test Item Value Reference Range Interpretation Comments Lymphocytes # (test code = Lymphocytes 1.6 1.0-5.5 #) [facility]aNmmfnfoCZZHVIDVDK7816-61-39 10:04:00 Test Item Value Reference Range Interpretation Comments Monocytes # (test code = Monocytes #) 0.8 <=0.8 [facility]aLmmzwzkOKFXDIDJEE3155-83-30 10:04:00 Test Item Value Reference Range Interpretation Comments Basophils # (test code = Basophils #) 0.1 <=0.2 [facility]landNhwqoqwJFNFQWANN3389-34-02 07:09:00 Test Item Value Reference Range Interpretation Comments HS Troponin I (test code = HS Troponin 20 I) [facility] AND [id number] 06:04:00 Test Item Value Reference Range Interpretation Comments UA Color (test code = Other 2*ABN*(06/19/22 UA Color) 1:04 AM) [facility] [id number] 06:04:00 Test Item Value Reference Range Interpretation Comments UA Turbidity (test code Turbid *ABN*(06/19/22 = UA Turbidity) 1:04 AM) [facility] BKUVS1163-02-21 06:04:00 Test Item Value Reference Range Interpretation Comments UA Spec Grav (test >=1.030 *ABN*(06/19/22 code = UA Spec Grav) 1:04 AM) [facility] [id number] 06:04:00 Test Item Value Reference Range Interpretation Comments UA pH (test code = UA pH) 6.0 1 5.0-8.0 [facility] [id number] 06:04:00 Test Item Value Reference Range Interpretation Comments UA Protein (test code = UA >=300 mg/dL Protein) [facility] [id number] 06:04:00 Test Item Value Reference Range Interpretation Comments UA Glucose (test code Negative (06/19/22 1:04 = UA Glucose) AM) [facility] [id number] 06:04:00 Test Item Value Reference Range Interpretation Comments UA Ketones (test code = Trace *ABN*(06/19/22 UA Ketones) 1:04 AM) [facility] [id number] 06:04:00 Test Item Value Reference Range Interpretation Comments UA Bili (test code = Negative *NA*(06/19/22 UA Bili) 1:04 AM) [facility] [id number] 06:04:00 Test Item Value Reference Range Interpretation Comments UA Blood (test code = Moderate *ABN*(06/19/22 UA Blood) 1:04 AM) [facility] [id number] 06:04:00 Test Item Value Reference Range Interpretation Comments UA Urobilinogen (test code = UA 0.2 0.1-1.0 Urobilinogen) [facility] [id number] 06:04:00 Test Item Value Reference Range Interpretation Comments UA Nitrite (test code Negative (06/19/22 1:04 = UA Nitrite) AM) [facility] [id number] 06:04:00 Test Item Value Reference Range Interpretation Comments UA Leuk Est (test code Large *ABN*(06/19/22 = UA Leuk Est) 1:04 AM) [facility] [id number] 06:04:00 Test Item Value Reference Range Interpretation Comments UA Sq Epi (test code = UA Sq Epi) Few /LPF [facility] [id number] 06:04:00 Test Item Value Reference Range Interpretation Comments UA WBC (test code = UA WBC) 28 <=5 [facility] [id number] 06:04:00 Test Item Value Reference Range Interpretation Comments UA RBC (test code = UA RBC) 5 <=2 [facility] [id number] 06:04:00 Test Item Value Reference Range Interpretation Comments UA Bacteria (test code = UA Few /HPF Bacteria) [facility] [id number] 06:04:00 Test Item Value Reference Range Interpretation Comments UA Mucus (test code = UA Mucus) Few /LPF [facility] [id number] 06:04:00 Test Item Value Reference Range Interpretation Comments UA Trichomonas (test code = UA Few /HPF Trichomonas) [facility]: [id number] 06:04:00 Test Item Value Reference Range Interpretation Comments Culture: Urine >100,000 CFU/mL Group B (test code = Streptococcus No Culture: Urine) susceptibility performed since these organisms are predictably susceptible to penicillin. If patient is penicillin allergic or susceptibility testing for additional antibiotics is clinically warranted please call the laboratory. [facility]villeDpcxwdqWGUVMTGWD0747-87-84 05:27:00 Test Item Value Reference Range Interpretation Comments Glucose Lvl (test code = Glucose Lvl) 119 70-99 [facility]villeWerbytjJBTGINTYJ3620-95-33 05:27:00 Test Item Value Reference Range Interpretation Comments BUN (test code = BUN) 03-20 [facility]villeFmvpjetGTJNGSUSS2096-15-67 05:27:00 Test Item Value Reference Range Interpretation Comments Creatinine Lvl (test code = Creatinine 0.89 0.50-1.40 Lvl) [facility]villePnustsbHKNLSCISO9944-60-88 05:27:00 Test Item Value Reference Range Interpretation Comments Sodium Lvl (test code = Sodium Lvl) 137 135-145 [facility] StephenvilleYroflrrCBEMMKKOV5843-96-89 05:27:00 Test Item Value Reference Range Interpretation Comments Potassium Lvl (test code = Potassium 3.5 3.5-5.1 Lvl) [facility]villeRsofvrbCYMRRHKZN9456-56-49 05:27:00 Test Item Value Reference Range Interpretation Comments Chloride Lvl (test code = Chloride Lvl) 102 95-109 [facility]villeYvuwiuqLGGGJASZH5909-82-44 05:27:00 Test Item Value Reference Range Interpretation Comments CO2 (test code = CO2) 27 24-32 [facility]villeWplflxoZQKPUGVZF3466-65-93 05:27:00 Test Item Value Reference Range Interpretation Comments Calcium Lvl (test code = Calcium Lvl) 9.4 8.5-10.5 [facility]villeCzzrcqnSHRHCKTLS6004-37-45 05:27:00 Test Item Value Reference Range Interpretation Comments Total Protein (test code = Total 7.9 6.4-8.4 Protein) [facility]villeMfkpxqaZUOOMDJCL4135-50-23 05:27:00 Test Item Value Reference Range Interpretation Comments Albumin Lvl (test code = Albumin Lvl) 3.6 3.5-5.0 [facility]villeRrjwzviAJXVILHZS6274-26-30 05:27:00 Test Item Value Reference Range Interpretation Comments ALT (test code = ALT) 15 <=65 [facility] StephenvilleXkctugaZGDXFHAVA4018-28-34 05:27:00 Test Item Value Reference Range Interpretation Comments AST (test code = AST) 12 <=37 [facility]villeHumypwsMOOXTLPAV1056-98-69 05:27:00 Test Item Value Reference Range Interpretation Comments Alk Phos (test code = Alk Phos) 155 39-136 [facility] StephenvilleShduwfaMYFKUHSHL5325-35-05 05:27:00 Test Item Value Reference Range Interpretation Comments Bili Total (test code = Bili Total) 0.7 0.2-1.3 [facility]villeYcskwrtFJOXGRFJS2772-46-85 05:27:00 Test Item Value Reference Range Interpretation Comments AGAP (test code = AGAP) 11.5 10.0-20.0 [facility]villeXzspoqhGGHQFKIYL2873-33-83 05:27:00 Test Item Value Reference Range Interpretation Comments B/C Ratio (test code = B/C Ratio) 31 1 6-25 [facility] StephenvilleNalvjgrPPHSLXKWB0313-89-99 05:27:00 Test Item Value Reference Range Interpretation Comments Globulin (test code = Globulin) 4.3 2.7-4.2 [facility]villeBvjlhjbYNJUZAMTV5976-41-17 05:27:00 Test Item Value Reference Range Interpretation Comments A/G Ratio (test code = A/G Ratio) 0.8 1 0.7-1.6 [facility] StephenvilleZefyozdQNBVFVEOX1832-23-94 05:27:00 Test Item Value Reference Range Interpretation Comments eGFR (test code = eGFR) 72 [facility]villePqypvgzGHYMVSBDN3660-24-29 05:27:00 Test Item Value Reference Range Interpretation Comments Lipase Lvl (test code = Lipase Lvl) 313 73-393 [facility] HospitalRokbqnkUSVKYEBHBN7152-42-73 05:27:00 Test Item Value Reference Range Interpretation Comments WBC (test code = WBC) 11.8 3.7-10.4 [facility] HospitalBzkvjpgEFBWMNEGOQ6579-31-48 05:27:00 Test Item Value Reference Range Interpretation Comments RBC (test code = RBC) 4.15 4.20-5.40 [place] 540762-10-21 05:27:00 Test Item Value Reference Range Interpretation Comments Hgb (test code = Hgb) 12.6 12.0-16.0 [place] 540762-10-21 05:27:00 Test Item Value Reference Range Interpretation Comments Hct (test code = Hct) 37.3 36.0-48.0 [facility] HospitalHryzloxMEWAGVOORM8629-62-53 05:27:00 Test Item Value Reference Range Interpretation Comments MCV (test code = MCV) 89.8 80.0-98.0 [place] 540762-10-21 05:27:00 Test Item Value Reference Range Interpretation Comments MCH (test code = MCH) 30.4 pg 27.0-31.0 [place] 540762-10-21 05:27:00 Test Item Value Reference Range Interpretation Comments MCHC (test code = MCHC) 33.9 32.0-36.0 [place] 540762-10-21 05:27:00 Test Item Value Reference Range Interpretation Comments RDW (test code = RDW) 13.8 11.5-14.5 [place] [address]-10-21 05:27:00 Test Item Value Reference Range Interpretation Comments Platelet (test code = Platelet) 333 610-450 [facility] HospitalBfsgjqdWIROSRTSHN9100-10-90 05:27:00 Test Item Value Reference Range Interpretation Comments MPV (test code = MPV) 8.3 7.4-10.4 [place] 540762-10-21 05:27:00 Test Item Value Reference Range Interpretation Comments PT (test code = PT) 13.5 s 12.0-14.7 [place] [address]-10-21 05:27:00 Test Item Value Reference Range Interpretation Comments INR (test code = INR) 1.04 1 0.85-1.17 [place] 540762-10-21 05:27:00 Test Item Value Reference Range Interpretation Comments PTT (test code = PTT) 24.0 s 22.9-35.8 [place] 540762-10-21 05:27:00 Test Item Value Reference Range Interpretation Comments Segs (test code = Segs) 74.7 45.0-75.0 [facility] HospitalLllftokOIBBANMCOL7829-58-74 05:27:00 Test Item Value Reference Range Interpretation Comments Lymphocytes (test code = Lymphocytes) 17.2 20.0-40.0 [facility] HospitalRoyakgpQXQRUJIFSG3301-83-02 05:27:00 Test Item Value Reference Range Interpretation Comments Monocytes (test code = Monocytes) 7.4 2.0-12.0 [facility] HospitalDnjykkdEWWDFBZRRV1431-15-51 05:27:00 Test Item Value Reference Range Interpretation Comments Eosinophils (test code = Eosinophils) 0.1 <=4.0 [facility] HospitalEjikdiyHHQRZOHQTD1153-77-43 05:27:00 Test Item Value Reference Range Interpretation Comments Basophils (test code = Basophils) 0.6 <=1.0 [facility] HospitalLvacnlmABCFCXFNLC3470-48-12 05:27:00 Test Item Value Reference Range Interpretation Comments Neutrophils # (test code = Neutrophils 8.8 1.5-8.1 #) [facility] HospitalChzmfzmBCLDGLJCEP1487-93-77 05:27:00 Test Item Value Reference Range Interpretation Comments Lymphocytes # (test code = Lymphocytes 2.0 1.0-5.5 #) [facility] HospitalUjzawrlQIQZQONNSB8093-56-88 05:27:00 Test Item Value Reference Range Interpretation Comments Monocytes # (test code = Monocytes #) 0.9 <=0.8 [facility] HospitalVsvzewkORKRSGNIQR5707-21-13 05:27:00 Test Item Value Reference Range Interpretation Comments Basophils # (test code = Basophils #) 0.1 <=0.2 [place] 24844022-10-21 04:48:03 Test Item Value Reference Range Interpretation Comments RADRPT (test code EXAMINATION: CT of the = RADRPT) abdomen and pelvis without contrastHISTORY: Abdominal pain; vomitingTECHNIQUE: Multiple contiguous transaxial CT images of the abdomen and pelvis are obtained. Coronal and sagittal reformatted images are performed. This exam was performed according to our departmental dose-optimization program which includes automated exposure control, adjustment of the mA and/or kV according to patient size and/or use of iterative reconstruction technique. IV Contrast: None. DLP: 1014 mGy-cmCOMPARISON: 03/10/2022.FINDINGS: Lung Bases: No pneumonic consolidation, pleural effusion, or pneumothorax.Heart: The heart size is within normal limits without pericardial effusion. Evaluation of the solid abdominal organs is limited due to the lack of intravenous contrast. Liver: Normal noncontrast appearance.Biliary: No intra- or extrahepatic biliary ductal dilatation.Gallbladder: Normal.Spleen: Normal noncontrast appearance.Pancreas: Normal noncontrast appearance.Adrenal Glands: Normal.Kidneys: There is an area of cortical thinning and scarring along the superior to mid pole of the left kidney, similar to the prior examination, likely postsurgical or post-traumatic in etiology. There is an otherwise normal noncontrast appearance of both kidneys without hydronephrosis.Urinary Bladder: Normal.Reproductive Organs: Grossly normal.Body Wall: There is a small fat-containing umbilical hernia.Gastrointestinal Tract: The small and large bowel are normal in caliber without evidence of acute inflammation or obstruction. The appendix is normal.Free Fluid and Free Gas: No free intraperitoneal fluid or gas.Lymph Nodes: No abdominal or pelvic lymphadenopathy.Vasculature: Arterial atherosclerotic calcifications are noted.Osseous Structures: There are several old right-sided rib fracture deformities. There is grade 1, anterolisthesis of L4 on L5 with moderate to severe L4-L5 and L5-S1 degenerative disc disease and bilateral lower lumbar facet osteoarthritis. Central canal stenosis is noted at L4-L5.IMPRESSION:1. No CT evidence of acute intra-abdominal or intrapelvic pathologic process. There is no bowel obstruction, free intraperitoneal fluid, or free intraperitoneal gas. The appendix is normal.2. Area of cortical thinning and scarring along the superior to mid pole of the left kidney, similar to the prior examination, likely postsurgical or post-traumatic in etiology. 3. Several old right-sided rib fracture deformities.4. Lower lumbar spondylolisthesis with central canal stenosis at L4-L5. [facility]landKzatptlSXPNPEGJEH5957-10-90 15:54:00 Test Item Value Reference Range Interpretation Comments Coronavirus (COVID-19) Not Detected (05/20/22 ALICIA (test code = 10:54 AM) Coronavirus (COVID-19) ALICIA) [facility] oifyvqnrnu6254-87-93 18:40:00 Test Item Value Reference Range Interpretation Comments POC creatinine (test 0.8 mg/dl 0.5-0.9 Operato r Name: code = 81562-6) [place] [facility] BDevice ID: [id number] [facility] [id number] 18:40:00 Test Item Value Reference Range Interpretation Comments Estimated GFR (test mL/min/1.73 m2 Caterg ory Units code = 88457-1) Interpretati onG1 >=90 Normal or highG 2 60-89 Mildly decrease dG3a 45-59 Mildly to moder ately xtenbxxxpN4z 30 -44 Moderately to s everely decreasedG4 15- 29 Severely decreasedG5 <15 Kidney failureThe eGFR was calculated usin g the Chronic Kidney Disease Epidemiology Co llaboration (CKD-EPI) equat ion. Interpretation is based on recommendations of the National Kidney Foundation-Kidn ey Disease Outcomes Qualit y Initiative (NKF-KDOQI) pub lished in 2013. [facility] ridcfggmug5681-31-54 18:40:00 Test Item Value Reference Range Interpretation Comments POC creatinine (test 0.8 mg/dl 0.5-0.9 Operato r Name: code = 33589-1) [place] BDevice ID: [id number] [facility] [id number] 18:40:00 Test Item Value Reference Range Interpretation Comments Estimated GFR (test mL/min/1.73 m2 Caterg ory Units code = 27571-2) Interpretati onG1 >=90 Normal or highG 2 60-89 Mildly decrease dG3a 45-59 Mildly to moder ately nwqanpkowW5m 30 -44 Moderately to s everely decreasedG4 15- 29 Severely decreasedG5 <15 Kidney failureThe eGFR was calculated usin g the Chronic Kidney Disease Epidemiology Co llaboration (CKD-EPI) equat ion. Interpretation is based on recommendations of the National Kidney Foundation-Kidn ey Disease Outcomes Qualit y Initiative (NKF-KDOQI) pub lished in 2013. [facility] tiwcyhxzza6028-93-77 18:40:00 Test Item Value Reference Range Interpretation Comments POC creatinine (test 0.8 mg/dl 0.5-0.9 Operato r Name: code = 62328-3) [place] BDevice ID: [id number] [facility] [id number] 18:40:00 Test Item Value Reference Range Interpretation Comments Estimated GFR (test mL/min/1.73 m2 Caterg ory Units code = 16423-8) Interpretati onG1 >=90 Normal or highG 2 60-89 Mildly decrease dG3a 45-59 Mildly to moder ately fjuvdpdyhY7c 30 -44 Moderately to s everely decreasedG4 15- 29 Severely decreasedG5 <15 Kidney failureThe eGFR was calculated cinthya engel the Chronic Kidney Disease Epidemiology Co llaboration (CKD-EPI) equat ion. Interpretation is based on recommendations of the National Kidney Foundation-Kidn ey Disease Outcomes Qualit y Initiative (NKF-KDOQI) pub lished in 2014. [id number] 11:40:00 Test Item Value Reference Range Interpretation Comments Coronavirus (COVID-19) Not Detected (04/08/22 ALICIA (test code = 6:40 AM) Coronavirus (COVID-19) ALICIA) [facility]VF6316-18-71 02:43:00 Test Item Value Reference Range Interpretation Comments Coronavirus (COVID-19) Not Detected (03/11/22 ALICIA (test code = 9:43 PM) Coronavirus (COVID-19) ALICIA) [facility]2022-07-13 07:50:00 Test Item Value Reference Range Interpretation Comments Glucose Lvl (test code = Glucose Lvl) 114 70-99 [facility]2022-07-13 07:50:00 Test Item Value Reference Range Interpretation Comments BUN (test code = BUN) 36 7- [facility]2022-07-13 07:50:00 Test Item Value Reference Range Interpretation Comments Creatinine Lvl (test code = Creatinine 1.12 0.50-1.40 Lvl) [facility]2022-07-13 07:50:00 Test Item Value Reference Range Interpretation Comments Sodium Lvl (test code = Sodium Lvl) 142 135-145 [place] 246622-07-13 07:50:00 Test Item Value Reference Range Interpretation Comments Potassium Lvl (test code = Potassium 4.5 3.5-5.1 Lvl) [facility]2022-07-13 07:50:00 Test Item Value Reference Range Interpretation Comments Chloride Lvl (test code = Chloride Lvl) 110 95-109 [facility]2022-07-13 07:50:00 Test Item Value Reference Range Interpretation Comments CO2 (test code = CO2) 28 24-32 [place] 246622-07-13 07:50:00 Test Item Value Reference Range Interpretation Comments Calcium Lvl (test code = Calcium Lvl) 8.3 8.5-10.5 [facility]2022-07-13 07:50:00 Test Item Value Reference Range Interpretation Comments AGAP (test code = AGAP) 8.5 10.0-20.0 [facility]2022-07-13 07:50:00 Test Item Value Reference Range Interpretation Comments eGFR (test code = eGFR) 55 [place] 540762-07-13 07:50:00 Test Item Value Reference Range Interpretation Comments WBC X 10x3 (test code = WBC X 10x3) 5.7 3.7-10.4 [place] 540762-07-13 07:50:00 Test Item Value Reference Range Interpretation Comments RBC X 10x6 (test code = RBC X 10x6) 3.45 4.20-5.40 [place] 540762-07-13 07:50:00 Test Item Value Reference Range Interpretation Comments Hgb (test code = Hgb) 10.2 12.0-16.0 [place] 540762-07-13 07:50:00 Test Item Value Reference Range Interpretation Comments Hct (test code = Hct) 31.6 36.0-48.0 [place] 540762-07-13 07:50:00 Test Item Value Reference Range Interpretation Comments MCV (test code = MCV) 91.7 80.0-98.0 [place] 540762-07-13 07:50:00 Test Item Value Reference Range Interpretation Comments MCH (test code = MCH) 29.5 pg 27.0-31.0 [place] 540762-07-13 07:50:00 Test Item Value Reference Range Interpretation Comments MCHC (test code = MCHC) 32.2 32.0-36.0 [place] 540762-07-13 07:50:00 Test Item Value Reference Range Interpretation Comments RDW (test code = RDW) 14.3 11.5-14.5 [place] 540762-07-13 07:50:00 Test Item Value Reference Range Interpretation Comments Platelet (test code = Platelet) 212 133-450 [place] 540762-07-13 07:50:00 Test Item Value Reference Range Interpretation Comments MPV (test code = MPV) 8.2 7.4-10.4 [place] [address]-07-13 07:50:00 Test Item Value Reference Range Interpretation Comments Segs (test code = Segs) 66.5 45.0-75.0 [place] 540762-07-13 07:50:00 Test Item Value Reference Range Interpretation Comments Lymphocytes (test code = Lymphocytes) 23.0 20.0-40.0 [facility]uiwdNCPHXVIHNN7283-21-57 07:50:00 Test Item Value Reference Range Interpretation Comments Monocytes (test code = Monocytes) 6.3 2.0-12.0 [facility] HospitalDcodqikYQAKFLEIUR2588-43-21 07:50:00 Test Item Value Reference Range Interpretation Comments Eosinophils (test code = Eosinophils) 3.7 <=4.0 [facility] HospitalUtfaalzDBBLOCPYOQ9088-78-26 07:50:00 Test Item Value Reference Range Interpretation Comments Basophils (test code = Basophils) 0.5 <=1.0 [facility] HospitalKfeyiypDNVJMFFHBW2755-91-81 07:50:00 Test Item Value Reference Range Interpretation Comments Neutrophils # (test code = Neutrophils 3.8 1.5-8.1 #) [facility] HospitalUzcnkkaXUVBSNBSOJ9276-19-16 07:50:00 Test Item Value Reference Range Interpretation Comments Lymphocytes # (test code = Lymphocytes 1.3 1.0-5.5 #) [facility] HospitalOdobkkiJVSMMRHICW4492-41-66 07:50:00 Test Item Value Reference Range Interpretation Comments Monocytes # (test code = Monocytes #) 0.4 <=0.8 [facility] HospitalDnenllnOIHZXMHJWK5743-49-02 07:50:00 Test Item Value Reference Range Interpretation Comments Eosinophils # (test code = Eosinophils 0.2 <=0.5 #) [facility] HermannCIPROFLOXACIN:SUSC:PT:ISOLATE:ORDQN:[id number] 02:34:00 Test Item Value Reference Range Interpretation Comments Culture: Urine (test >100,000 CFU/mL code = Culture: Escherichia coli 10,000 - Urine) 50,000 CFU/mL Skin Jackeline [facility] HermannCIPROFLOXACIN:SUSC:PT:ISOLATE:ORDQN:[id number] 02:34:00 Test Item Value Reference Range Interpretation Comments Escherichia coli (test code Escherichia coli = Escherichia coli) [facility] [id number] 02:00:40 Test Item Value Reference Range Interpretation Comments UA Color (test code = Yellow *NA*(03/10/22 UA Color) 9:00 PM) [facility] AND [id number] 02:00:40 Test Item Value Reference Range Interpretation Comments UA Turbidity (test code Slight *ABN*(03/10/22 = UA Turbidity) 9:00 PM) [facility] AND [id number] 02:00:40 Test Item Value Reference Range Interpretation Comments UA Spec Grav (test code = UA Spec 1.055 1 Grav) [facility] AND [id number] 02:00:40 Test Item Value Reference Range Interpretation Comments UA pH (test code = UA pH) 5.0 1 5.0-8.0 [facility] AND [id number] 02:00:40 Test Item Value Reference Range Interpretation Comments UA Protein (test code = UA Protein) 30 mg/dL [facility] AND [id number] 02:00:40 Test Item Value Reference Range Interpretation Comments UA Glucose (test code = UA Negative mg/dL Glucose) [facility] AND [id number] 02:00:40 Test Item Value Reference Range Interpretation Comments UA Ketones (test code = UA Negative mg/dL Ketones) [facility] AND [id number] 02:00:40 Test Item Value Reference Range Interpretation Comments UA Bili (test code = Negative *NA*(03/10/22 UA Bili) 9:00 PM) [facility] AND [id number] 02:00:40 Test Item Value Reference Range Interpretation Comments UA Blood (test code = Moderate *ABN*(03/10/22 UA Blood) 9:00 PM) [facility] AND [id number] 02:00:40 Test Item Value Reference Range Interpretation Comments UA Urobilinogen (test code = UA no gt 0.1-1.0 Urobilinogen) [facility] AND [id number] 02:00:40 Test Item Value Reference Range Interpretation Comments UA Nitrite (test code Positive *ABN*(03/10/22 = UA Nitrite) 9:00 PM) [facility] AND [id number] 02:00:40 Test Item Value Reference Range Interpretation Comments UA Leuk Est (test code Large *ABN*(03/10/22 = UA Leuk Est) 9:00 PM) [facility] AND [id number] 02:00:40 Test Item Value Reference Range Interpretation Comments UA Sq Epi (test code = UA Sq Occasional /LPF Epi) [facility] [id number] 02:00:40 Test Item Value Reference Range Interpretation Comments UA WBC (test code = UA WBC) 46 <=5 [facility] AND [id number] 02:00:40 Test Item Value Reference Range Interpretation Comments UA RBC (test code = UA RBC) 2 <=2 [facility] AND [id number] 02:00:40 Test Item Value Reference Range Interpretation Comments UA Bacteria (test code = UA Many /HPF Bacteria) [facility] AND [id number] 02:00:40 Test Item Value Reference Range Interpretation Comments UA Mucus (test code = UA Mucus) Few /LPF [facility] [id number] 02:00:40 Test Item Value Reference Range Interpretation Comments UA Hyal Cast (test code = UA Hyal Cast) 1 <=2 [facility] [place] [facility] [id number] 02:04:00 Test Item Value Reference Range Interpretation Comments ABO/Rh (test code = ABO/Rh) A POS [facility] [place] [facility] [id number] 02:04:00 Test Item Value Reference Range Interpretation Comments Antibody Scrn (test Negative (03/09/22 9:04 code = Antibody Scrn) PM) [facility] [employer] [id number] 02:00:00 Test Item Value Reference Range Interpretation Comments Glucose Lvl (test code = Glucose Lvl) 108 70-99 [facility] [employer] [id number] 02:00:00 Test Item Value Reference Range Interpretation Comments BUN (test code = BUN) 31 7-22 [facility] [employer] [id number] 02:00:00 Test Item Value Reference Range Interpretation Comments Creatinine Lvl (test code = Creatinine 1.28 0.50-1.40 Lvl) [facility] [employer] [id number] 02:00:00 Test Item Value Reference Range Interpretation Comments Sodium Lvl (test code = Sodium Lvl) 144 135-145 [place] 246622-07-12 02:00:00 Test Item Value Reference Range Interpretation Comments Potassium Lvl (test code = Potassium 4.2 3.5-5.1 Lvl) [facility]2022-07-12 02:00:00 Test Item Value Reference Range Interpretation Comments Chloride Lvl (test code = Chloride Lvl) 114 95-109 [place] 246622-07-12 02:00:00 Test Item Value Reference Range Interpretation Comments CO2 (test code = CO2) 24 24-32 [place] 246622-07-12 02:00:00 Test Item Value Reference Range Interpretation Comments Calcium Lvl (test code = Calcium Lvl) 8.9 8.5-10.5 [place] 246622-07-12 02:00:00 Test Item Value Reference Range Interpretation Comments Total Protein (test code = Total 7.0 6.4-8.4 Protein) [place] 246622-07-12 02:00:00 Test Item Value Reference Range Interpretation Comments Albumin Lvl (test code = Albumin Lvl) 3.2 3.5-5.0 [facility]2022-07-12 02:00:00 Test Item Value Reference Range Interpretation Comments ALANINE AMINOTRANSFERASE (test code = 49 <=65 ALANINE AMINOTRANSFERASE) [place] 246622-07-12 02:00:00 Test Item Value Reference Range Interpretation Comments AST (test code = AST) 102 <=37 [place] 246622-07-12 02:00:00 Test Item Value Reference Range Interpretation Comments Alk Phos (test code = Alk Phos) 115 39-136 [facility]2022-07-12 02:00:00 Test Item Value Reference Range Interpretation Comments Bili Total (test code = Bili Total) 0.3 0.2-1.3 [place] 246622-07-12 02:00:00 Test Item Value Reference Range Interpretation Comments AGAP (test code = AGAP) 10.2 10.0-20.0 [place] 246622-07-12 02:00:00 Test Item Value Reference Range Interpretation Comments B/C Ratio (test code = B/C Ratio) 24 1 6-25 [place] 246622-07-12 02:00:00 Test Item Value Reference Range Interpretation Comments Globulin (test code = Globulin) 3.8 2.7-4.2 [place] 246622-07-12 02:00:00 Test Item Value Reference Range Interpretation Comments A/G Ratio (test code = A/G Ratio) 0.8 1 0.7-1.6 [facility]2022-07-12 02:00:00 Test Item Value Reference Range Interpretation Comments eGFR (test code = eGFR) 47 [facility]2022-07-12 02:00:00 Test Item Value Reference Range Interpretation Comments Lactic Acid Lvl (test code = Lactic 0.9 0.5-2.2 Acid Lvl) [place] 540762-07-12 02:00:00 Test Item Value Reference Range Interpretation Comments WBC X 10x3 (test code = WBC X 10x3) 15.1 3.7-10.4 [facility] H[id number] 02:00:00 Test Item Value Reference Range Interpretation Comments RBC X 10x6 (test code = RBC X 10x6) 4.02 4.20-5.40 [place] 540762-07-12 02:00:00 Test Item Value Reference Range Interpretation Comments Hgb (test code = Hgb) 11.8 12.0-16.0 [place] 540762-07-12 02:00:00 Test Item Value Reference Range Interpretation Comments Hct (test code = Hct) 36.6 36.0-48.0 [place] 540762-07-12 02:00:00 Test Item Value Reference Range Interpretation Comments MCV (test code = MCV) 91.3 80.0-98.0 [place] 540762-07-12 02:00:00 Test Item Value Reference Range Interpretation Comments MCH (test code = MCH) 29.4 pg 27.0-31.0 [place] 540762-07-12 02:00:00 Test Item Value Reference Range Interpretation Comments MCHC (test code = MCHC) 32.2 32.0-36.0 [place] 540762-07-12 02:00:00 Test Item Value Reference Range Interpretation Comments RDW (test code = RDW) 14.0 11.5-14.5 [place] 540762-07-12 02:00:00 Test Item Value Reference Range Interpretation Comments Platelet (test code = Platelet) 268 133-450 [facility] HospitalYzsihpbXJIGULWYZX4899-06-27 02:00:00 Test Item Value Reference Range Interpretation Comments MPV (test code = MPV) 8.2 7.4-10.4 [place] 540762-07-12 02:00:00 Test Item Value Reference Range Interpretation Comments ACT (TEG) Rapid (test code = ACT (TEG) 89 s 86-118 Rapid) [facility] H[id number] 02:00:00 Test Item Value Reference Range Interpretation Comments Split Point Rapid (test code = Split 0.3 min Point Rapid) [facility] HospitalDfqqwvgVMJBNBQUDR5653-45-44 02:00:00 Test Item Value Reference Range Interpretation Comments R-time Rapid (test code = R-time 0.4 min 0.4-0.7 Rapid) [place] 540762-07-12 02:00:00 Test Item Value Reference Range Interpretation Comments K-time Rapid (test code = K-time 0.8 min 0.6-2.3 Rapid) [facility] HospitalHjnkgpvCEIMUPMCEC6459-10-11 02:00:00 Test Item Value Reference Range Interpretation Comments Angle Rapid (test code = Angle 81 degrees 64-80 Rapid) [facility] HospitalMwftyrnXWUAMRIEMY8496-12-13 02:00:00 Test Item Value Reference Range Interpretation Comments Max Amplitude Rapid (test code = Max 74 mm 52-71 Amplitude Rapid) [place] 540762-07-12 02:00:00 Test Item Value Reference Range Interpretation Comments G-value Rapid (test code = G-value 13.9 5.0-11.6 Rapid) [facility] HospitalGyvlkmcAWGDPVLHQF8377-19-29 02:00:00 Test Item Value Reference Range Interpretation Comments Estimated % Lysis Rapid (test code = 0.7 <=7.5 Estimated % Lysis Rapid) [facility] HospitalFxqgiecBOZZLQLYSM4458-77-57 02:00:00 Test Item Value Reference Range Interpretation Comments Segs (test code = Segs) 86.6 45.0-75.0 [place] 540762-07-12 02:00:00 Test Item Value Reference Range Interpretation Comments Lymphocytes (test code = Lymphocytes) 8.1 20.0-40.0 [place] 540762-07-12 02:00:00 Test Item Value Reference Range Interpretation Comments Monocytes (test code = Monocytes) 5.1 2.0-12.0 [place] 540762-07-12 02:00:00 Test Item Value Reference Range Interpretation Comments Basophils (test code = Basophils) 0.2 <=1.0 [place] 540762-07-12 02:00:00 Test Item Value Reference Range Interpretation Comments Neutrophils # (test code = Neutrophils 13.0 1.5-8.1 #) [place] 540762-07-12 02:00:00 Test Item Value Reference Range Interpretation Comments Lymphocytes # (test code = Lymphocytes 1.2 1.0-5.5 #) [place] 540762-07-12 02:00:00 Test Item Value Reference Range Interpretation Comments Monocytes # (test code = Monocytes #) 0.8 <=0.8 [place] 225921-09-13 16:53:00 Test Item Value Reference Range Interpretation Comments Coronavirus (COVID-19) Not Detected (05/12/21 ALICIA (test code = 11:53 AM) Coronavirus (COVID-19) ALICIA) [facility]2021-09-09 10:37:00 Test Item Value Reference Range Interpretation Comments Glucose Lvl (test code = Glucose Lvl) 90 70-99 [facility]2021-09-09 10:37:00 Test Item Value Reference Range Interpretation Comments BUN (test code = BUN) 22 7-22 [facility]2021-09-09 10:37:00 Test Item Value Reference Range Interpretation Comments Creatinine Lvl (test code = Creatinine 0.54 0.50-1.40 Lvl) [facility]2021-09-09 10:37:00 Test Item Value Reference Range Interpretation Comments Sodium Lvl (test code = Sodium Lvl) 137 135-145 [facility]2021-09-09 10:37:00 Test Item Value Reference Range Interpretation Comments Potassium Lvl (test code = Potassium 4.2 3.5-5.1 Lvl) [facility]2021-09-09 10:37:00 Test Item Value Reference Range Interpretation Comments Chloride Lvl (test code = Chloride Lvl) 102 95-109 [facility]2021-09-09 10:37:00 Test Item Value Reference Range Interpretation Comments CO2 (test code = CO2) 32 24-32 [facility]2021-09-09 10:37:00 Test Item Value Reference Range Interpretation Comments Calcium Lvl (test code = Calcium Lvl) 9.0 8.5-10.5 [facility]2021-09-09 10:37:00 Test Item Value Reference Range Interpretation Comments AGAP (test code = AGAP) 7.2 10.0-20.0 [facility]2021-09-09 10:37:00 Test Item Value Reference Range Interpretation Comments eGFR (test code = eGFR) 101 [facility] HospitalKxgpoxtNYENQGEJRB3515-67-30 10:37:00 Test Item Value Reference Range Interpretation Comments WBC (test code = WBC) 9.5 3.7-10.4 [facility] HospitalUfkzioxYJPHQFEUIT6349-01-76 10:37:00 Test Item Value Reference Range Interpretation Comments RBC (test code = RBC) 3.36 4.20-5.40 [facility] HospitalImzyucfVRYALKYWSP9643-30-43 10:37:00 Test Item Value Reference Range Interpretation Comments Hgb (test code = Hgb) 9.6 12.0-16.0 [facility] HospitalIpoarpnNOQYWIIGGZ2249-15-47 10:37:00 Test Item Value Reference Range Interpretation Comments Hct (test code = Hct) 29.8 36.0-48.0 [facility] HospitalAniemxtKEFKUNYGNG5942-59-66 10:37:00 Test Item Value Reference Range Interpretation Comments MCV (test code = MCV) 88.8 80.0-98.0 [facility] HospitalDtlhoxnTGYBOYECDK1716-88-76 10:37:00 Test Item Value Reference Range Interpretation Comments MCH (test code = MCH) 28.7 pg 27.0-31.0 [facility] HospitalDxjzmsmRFBXIYGOZN3729-34-48 10:37:00 Test Item Value Reference Range Interpretation Comments MCHC (test code = MCHC) 32.4 32.0-36.0 [place] 540761-09-09 10:37:00 Test Item Value Reference Range Interpretation Comments RDW (test code = RDW) 14.6 11.5-14.5 [facility] HospitalLiwhhpjFCWGIFCNNB0521-01-75 10:37:00 Test Item Value Reference Range Interpretation Comments Platelet (test code = Platelet) 384 108-794 [place] 540761-09-09 10:37:00 Test Item Value Reference Range Interpretation Comments MPV (test code = MPV) 7.3 7.4-10.4 [place] 540761-09-09 10:37:00 Test Item Value Reference Range Interpretation Comments Segs (test code = Segs) 60.6 45.0-75.0 [place] 540761-09-09 10:37:00 Test Item Value Reference Range Interpretation Comments Lymphocytes (test code = Lymphocytes) 31.0 20.0-40.0 [place] 540761-09-09 10:37:00 Test Item Value Reference Range Interpretation Comments Monocytes (test code = Monocytes) 5.6 2.0-12.0 [place] 540761-09-09 10:37:00 Test Item Value Reference Range Interpretation Comments Eosinophils (test code = Eosinophils) 2.1 <=4.0 [place] 540761-09-09 10:37:00 Test Item Value Reference Range Interpretation Comments Basophils (test code = Basophils) 0.7 <=1.0 [facility] HospitalCcejeooAZCXFCKCWW2324-71-69 10:37:00 Test Item Value Reference Range Interpretation Comments Neutrophils # (test code = Neutrophils 5.7 1.5-8.1 #) [facility] HospitalPyqiborQDBNEPSJIN3706-84-43 10:37:00 Test Item Value Reference Range Interpretation Comments Lymphocytes # (test code = Lymphocytes 2.9 1.0-5.5 #) [facility] HospitalIyjcqijKBIBCXCOOR6491-56-95 10:37:00 Test Item Value Reference Range Interpretation Comments Monocytes # (test code = Monocytes #) 0.5 <=0.8 [facility] HospitalCchxhiyONYTMDBPFD2245-20-22 10:37:00 Test Item Value Reference Range Interpretation Comments Eosinophils # (test code = Eosinophils 0.2 <=0.5 #) [place] 540761-09-09 10:37:00 Test Item Value Reference Range Interpretation Comments Basophils # (test code = Basophils #) 0.1 <=0.2 [place] 246621-09-08 09:28:00 Test Item Value Reference Range Interpretation Comments Glucose Lvl (test code = Glucose Lvl) 109 70-99 [facility]2021-09-08 09:28:00 Test Item Value Reference Range Interpretation Comments BUN (test code = BUN) 17 7-22 [place] 246621-09-08 09:28:00 Test Item Value Reference Range Interpretation Comments Creatinine Lvl (test code = Creatinine 0.53 0.50-1.40 Lvl) [place] 246621-09-08 09:28:00 Test Item Value Reference Range Interpretation Comments Sodium Lvl (test code = Sodium Lvl) 137 135-145 [place] 246621-09-08 09:28:00 Test Item Value Reference Range Interpretation Comments Potassium Lvl (test code = Potassium 4.3 3.5-5.1 Lvl) [place] 246621-09-08 09:28:00 Test Item Value Reference Range Interpretation Comments Chloride Lvl (test code = Chloride Lvl) 102 95-109 [place] 246621-09-08 09:28:00 Test Item Value Reference Range Interpretation Comments CO2 (test code = CO2) 31 24-32 [place] 246621-09-08 09:28:00 Test Item Value Reference Range Interpretation Comments Calcium Lvl (test code = Calcium Lvl) 8.9 8.5-10.5 [place] 246621-09-08 09:28:00 Test Item Value Reference Range Interpretation Comments AGAP (test code = AGAP) 8.3 10.0-20.0 [place] 246621-09-08 09:28:00 Test Item Value Reference Range Interpretation Comments eGFR (test code = eGFR) 102 [place] 540761-09-08 09:28:00 Test Item Value Reference Range Interpretation Comments WBC (test code = WBC) 10.1 3.7-10.4 [place] 540761-09-08 09:28:00 Test Item Value Reference Range Interpretation Comments RBC (test code = RBC) 3.46 4.20-5.40 [place] 540761-09-08 09:28:00 Test Item Value Reference Range Interpretation Comments Hgb (test code = Hgb) 10.1 12.0-16.0 [place] [address]-09-08 09:28:00 Test Item Value Reference Range Interpretation Comments Hct (test code = Hct) 30.5 36.0-48.0 [place] [address]-09-08 09:28:00 Test Item Value Reference Range Interpretation Comments MCV (test code = MCV) 88.3 80.0-98.0 [facility] HospitalOkedudbVNNIMLMKDD8941-66-84 09:28:00 Test Item Value Reference Range Interpretation Comments MCH (test code = MCH) 29.2 pg 27.0-31.0 [facility] HospitalGjzfctzHYAVTXDJIJ6765-69-09 09:28:00 Test Item Value Reference Range Interpretation Comments MCHC (test code = MCHC) 33.1 32.0-36.0 [facility] HospitalNqfbtumDZEFUINMMJ6549-05-60 09:28:00 Test Item Value Reference Range Interpretation Comments RDW (test code = RDW) 14.5 11.5-14.5 [facility] HospitalIadgzlnRCLCOATLEE6534-13-90 09:28:00 Test Item Value Reference Range Interpretation Comments Platelet (test code = Platelet) 979 645-854 [facility] HospitalDjbgpdvEYNRYQCKHG5293-35-26 09:28:00 Test Item Value Reference Range Interpretation Comments MPV (test code = MPV) 7.5 7.4-10.4 [facility] HospitalPfxanuvIDEUZFATPJ5329-33-53 09:28:00 Test Item Value Reference Range Interpretation Comments RBC Morph (test code = Normal (05/07/21 4:28 AM) RBC Morph) [facility]pyivlfGQTGKCZVLE2434-56-79 09:28:00 Test Item Value Reference Range Interpretation Comments Plt Morph (test code = Normal (05/07/21 4:28 AM) Plt Morph) [facility] HospitalWjozuenZGIOVVCPWA4274-65-51 09:28:00 Test Item Value Reference Range Interpretation Comments Segs (test code = Segs) 86.4 45.0-75.0 [facility] HospitalPqsljbkKHOQATIPZF2136-34-16 09:28:00 Test Item Value Reference Range Interpretation Comments Lymphocytes (test code = Lymphocytes) 10.6 20.0-40.0 [place] 540761-09-08 09:28:00 Test Item Value Reference Range Interpretation Comments Monocytes (test code = Monocytes) 2.7 2.0-12.0 [place] 540761-09-08 09:28:00 Test Item Value Reference Range Interpretation Comments Basophils (test code = Basophils) 0.3 <=1.0 [facility] HospitalWitupneKSRYZXXMPN6280-18-40 09:28:00 Test Item Value Reference Range Interpretation Comments Neutrophils # (test code = Neutrophils 8.7 1.5-8.1 #) [facility]NBFRNTCBDA6758-83-61 09:28:00 Test Item Value Reference Range Interpretation Comments Lymphocytes # (test code = Lymphocytes 1.1 1.0-5.5 #) [facility]aUmvukprYMWIYENQEA5192-73-15 09:28:00 Test Item Value Reference Range Interpretation Comments Monocytes # (test code = Monocytes #) 0.3 <=0.8 [facility]HviojrbXVHSTRJLVO5957-00-29 09:28:00 Test Item Value Reference Range Interpretation Comments C-REACTIVE PROTEIN (test code = 110.0 C-REACTIVE PROTEIN) [facility]landIuiabswHCXNIYUVEW9158-21-98 09:28:00 Test Item Value Reference Range Interpretation Comments Vancomycin AUC (test code = Vancomycin 14.8 AUC) [facility] Fuywppqji8607-32-92 23:02:00 Test Item Value Reference Range Interpretation Comments Culture: Anaerobic No Anaerobes Isolated (test code = Culture: Anaerobic) [facility]landGram Stain Gceqnp3591-60-39 23:02:00 Test Item Value Reference Range Interpretation Comments Gram Stain Report No Wbc'S Or Organisms (test code = Gram Seen Stain Report) [facility]land[facility]: Aspirate/Body Fluid/Asxila4800-08-35 23:02:00 Test Item Value Reference Range Interpretation Comments Culture: Aspirate/Body No Growth after 12 days Fluid/Tissue (test code = Culture: Aspirate/Body Fluid/Tissue) [facility]land[facility]: Iwhelgbpv2506-74-31 22:57:00 Test Item Value Reference Range Interpretation Comments Culture: Anaerobic No Anaerobes Isolated (test code = Culture: Anaerobic) [facility]landGram Stain Pytwwm4416-13-48 22:57:00 Test Item Value Reference Range Interpretation Comments Gram Stain Report No Wbc'S Or Organisms (test code = Gram Seen Stain Report) [facility]land[facility]: Aspirate/Body Fluid/Wtcjuj0509-34-86 22:57:00 Test Item Value Reference Range Interpretation Comments Culture: Aspirate/Body No Growth after 12 days Fluid/Tissue (test code = Culture: Aspirate/Body Fluid/Tissue) [facility]landCHEM [id number] 09:50:00 Test Item Value Reference Range Interpretation Comments Glucose Lvl (test code = Glucose Lvl) 102 70-99 [place] 246621-09-07 09:50:00 Test Item Value Reference Range Interpretation Comments BUN (test code = BUN) 16 7-22 [place] 246621-09-07 09:50:00 Test Item Value Reference Range Interpretation Comments Creatinine Lvl (test code = Creatinine 0.51 0.50-1.40 Lvl) [place] 246621-09-07 09:50:00 Test Item Value Reference Range Interpretation Comments Sodium Lvl (test code = Sodium Lvl) 138 135-145 [place] [address]-09-07 09:50:00 Test Item Value Reference Range Interpretation Comments Potassium Lvl (test code = Potassium 4.3 3.5-5.1 Lvl) [place] 246621-09-07 09:50:00 Test Item Value Reference Range Interpretation Comments Chloride Lvl (test code = Chloride Lvl) 103 95-109 [place] 246621-09-07 09:50:00 Test Item Value Reference Range Interpretation Comments CO2 (test code = CO2) 32 24-32 [place] 246621-09-07 09:50:00 Test Item Value Reference Range Interpretation Comments Calcium Lvl (test code = Calcium Lvl) 8.5 8.5-10.5 [place] 246621-09-07 09:50:00 Test Item Value Reference Range Interpretation Comments AGAP (test code = AGAP) 7.3 10.0-20.0 [place] 246621-09-07 09:50:00 Test Item Value Reference Range Interpretation Comments eGFR (test code = eGFR) 103 [place] 540761-09-07 09:50:00 Test Item Value Reference Range Interpretation Comments Segs (test code = Segs) 66.5 45.0-75.0 [place] 540761-09-07 09:50:00 Test Item Value Reference Range Interpretation Comments Lymphocytes (test code = Lymphocytes) 22.0 20.0-40.0 [place] 540761-09-07 09:50:00 Test Item Value Reference Range Interpretation Comments Monocytes (test code = Monocytes) 7.8 2.0-12.0 [place] 540761-09-07 09:50:00 Test Item Value Reference Range Interpretation Comments Eosinophils (test code = Eosinophils) 2.3 <=4.0 [facility] HospitalBvcktpyPOJBAEVJQZ2937-29-53 09:50:00 Test Item Value Reference Range Interpretation Comments Basophils (test code = Basophils) 1.4 <=1.0 [facility] HospitalVjsnnvdDRYUUPLGOI1377-88-83 09:50:00 Test Item Value Reference Range Interpretation Comments Neutrophils # (test code = Neutrophils 6.8 1.5-8.1 #) [facility] HospitalVqhgmdtNEOUKYSEJX7953-48-73 09:50:00 Test Item Value Reference Range Interpretation Comments Lymphocytes # (test code = Lymphocytes 2.3 1.0-5.5 #) [facility] HospitalMvdowlvDZROJMTKMR1392-04-00 09:50:00 Test Item Value Reference Range Interpretation Comments Monocytes # (test code = Monocytes #) 0.8 <=0.8 [facility] HospitalBfyoxsuMFTPBJAXYW5382-67-74 09:50:00 Test Item Value Reference Range Interpretation Comments Eosinophils # (test code = Eosinophils 0.2 <=0.5 #) [facility] HospitalVkpwqrbNPMCHNWCJV4822-81-81 09:50:00 Test Item Value Reference Range Interpretation Comments Basophils # (test code = Basophils #) 0.1 <=0.2 [facility] HospitalTgeczuoPEQZVQZCVC8052-35-27 09:50:00 Test Item Value Reference Range Interpretation Comments WBC (test code = WBC) 10.3 3.7-10.4 [facility] HospitalUsmgtgmUZHBEEMHDM9843-20-37 09:50:00 Test Item Value Reference Range Interpretation Comments RBC (test code = RBC) 3.34 4.20-5.40 [facility] HospitalEhfxpowXFBFSASONF3213-32-02 09:50:00 Test Item Value Reference Range Interpretation Comments Hgb (test code = Hgb) 9.7 12.0-16.0 [facility] HospitalDqsfgwjYPLOFFWTTA7790-66-07 09:50:00 Test Item Value Reference Range Interpretation Comments Hct (test code = Hct) 29.3 36.0-48.0 [facility] HospitalXtetzyeVBWPWQFNHP8065-66-39 09:50:00 Test Item Value Reference Range Interpretation Comments MCV (test code = MCV) 87.7 80.0-98.0 [facility] HospitalWlifopvKDXURCWEMM4285-71-59 09:50:00 Test Item Value Reference Range Interpretation Comments MCH (test code = MCH) 28.9 pg 27.0-31.0 [facility] HospitalCyjbgkyEAROFVGTTK3453-18-39 09:50:00 Test Item Value Reference Range Interpretation Comments MCHC (test code = MCHC) 32.9 32.0-36.0 [facility] HospitalOngmwvvHLYLSNBVUI1078-71-99 09:50:00 Test Item Value Reference Range Interpretation Comments RDW (test code = RDW) 15.0 11.5-14.5 [facility] HospitalUfixxxeDKDKVACFPW8862-85-19 09:50:00 Test Item Value Reference Range Interpretation Comments Platelet (test code = Platelet) 556 133-450 [facility] HospitalTqcjjpzRZJXSTBIPG3411-02-18 09:50:00 Test Item Value Reference Range Interpretation Comments MPV (test code = MPV) 7.5 7.4-10.4 [facility]2021-09-06 11:24:00 Test Item Value Reference Range Interpretation Comments Phosphorus (test code = Phosphorus) 3.6 2.5-4.5 [facility] [id number] 11:24:00 Test Item Value Reference Range Interpretation Comments Magnesium Lvl (test code = Magnesium 2.1 1.8-2.4 Lvl) [facility] HospitalSauaqiyVKLNXHJWNG7669-87-95 11:24:00 Test Item Value Reference Range Interpretation Comments Eosinophils (test code = Eosinophils) 1.3 <=4.0 [facility] HospitalXbjbeilKPBYDABUUD1916-34-94 11:24:00 Test Item Value Reference Range Interpretation Comments Eosinophils # (test code = Eosinophils 0.1 <=0.5 #) [facility]2021-09-05 21:00:00 Test Item Value Reference Range Interpretation Comments Color BF (test code = Red *ABN*(05/04/21 4:00 Color BF) PM) [facility]2021-09-05 21:00:00 Test Item Value Reference Range Interpretation Comments Clarity BF (test code = Clotted *ABN*(05/04/21 Clarity BF) 4:00 PM) [facility]2021-09-05 21:00:00 Test Item Value Reference Range Interpretation Comments Nucleated Cells BF (test code = 143 Nucleated Cells BF) [facility]2021-09-05 21:00:00 Test Item Value Reference Range Interpretation Comments RBC BF (test code = RBC BF) 6[address]46 [facility]2021-09-05 21:00:00 Test Item Value Reference Range Interpretation Comments Neutrophils BF (test code See Note 4(05/04/21 = Neutrophils BF) 4:00 PM) [facility]landBODY [id number] 21:00:00 Test Item Value Reference Range Interpretation Comments CellCnt BF Type (test Synovial (05/04/21 4:00 code = CellCnt BF PM) Type) [facility] PearlandGram Stain Eacrfe3109-77-12 21:00:00 Test Item Value Reference Range Interpretation Comments Gram Stain Report No Wbc'S Or Organisms (test code = Gram Seen Stain Report) [facility]land[facility]: Aspirate/Body Fluid/Mktjzb0552-46-98 21:00:00 Test Item Value Reference Range Interpretation Comments Culture: Aspirate/Body Fluid/Tissue No Growth (test code = Culture: Aspirate/Body Fluid/Tissue) [facility] HospitalZjfytmqUQOFHLLLSC4043-93-97 19:50:00 Test Item Value Reference Range Interpretation Comments Sed Rate (test code = Sed Rate) 92 <=20 [facility] HospitalGcrezjrNIPQMCTTJF6018-09-03 15:55:00 Test Item Value Reference Range Interpretation Comments PT (test code = PT) 13.9 s 12.0-14.7 [facility] HospitalMrghcrpBCAESLYNAC8997-46-02 15:55:00 Test Item Value Reference Range Interpretation Comments INR (test code = INR) 1.08 1 0.85-1.17 [facility]2021-09-05 07:15:00 Test Item Value Reference Range Interpretation Comments Glucose Lvl (test code = Glucose Lvl) 96 70-99 [facility]2021-09-05 07:15:00 Test Item Value Reference Range Interpretation Comments BUN (test code = BUN) 16 7-22 [facility]2021-09-05 07:15:00 Test Item Value Reference Range Interpretation Comments Creatinine Lvl (test code = Creatinine 0.47 0.50-1.40 Lvl) [facility] [id number] 07:15:00 Test Item Value Reference Range Interpretation Comments Sodium Lvl (test code = Sodium Lvl) 139 135-145 [facility]2021-09-05 07:15:00 Test Item Value Reference Range Interpretation Comments Potassium Lvl (test code = Potassium 4.3 3.5-5.1 Lvl) [facility]2021-09-05 07:15:00 Test Item Value Reference Range Interpretation Comments Chloride Lvl (test code = Chloride Lvl) 105 95-109 [place] 246621-09-05 07:15:00 Test Item Value Reference Range Interpretation Comments CO2 (test code = CO2) 31 24-32 [place] 246621-09-05 07:15:00 Test Item Value Reference Range Interpretation Comments Calcium Lvl (test code = Calcium Lvl) 8.3 8.5-10.5 [facility]2021-09-05 07:15:00 Test Item Value Reference Range Interpretation Comments AGAP (test code = AGAP) 7.3 10.0-20.0 [place] 246621-09-05 07:15:00 Test Item Value Reference Range Interpretation Comments eGFR (test code = eGFR) 105 [place] 246621-09-05 07:15:00 Test Item Value Reference Range Interpretation Comments Phosphorus (test code = Phosphorus) 4.0 2.5-4.5 [place] 246621-09-05 07:15:00 Test Item Value Reference Range Interpretation Comments Magnesium Lvl (test code = Magnesium 1.9 1.8-2.4 Lvl) [facility]landEykgtusSOEIZMAYNK8415-53-55 07:15:00 Test Item Value Reference Range Interpretation Comments C-REACTIVE PROTEIN (test code = 105.0 C-REACTIVE PROTEIN) [place] 246621-09-04 09:26:00 Test Item Value Reference Range Interpretation Comments Glucose Lvl (test code = Glucose Lvl) 91 70-99 [facility]2021-09-04 09:26:00 Test Item Value Reference Range Interpretation Comments BUN (test code = BUN) 19 7-22 [place] 246621-09-04 09:26:00 Test Item Value Reference Range Interpretation Comments Creatinine Lvl (test code = Creatinine 0.54 0.50-1.40 Lvl) [place] 246621-09-04 09:26:00 Test Item Value Reference Range Interpretation Comments Sodium Lvl (test code = Sodium Lvl) 142 135-145 [facility]2021-09-04 09:26:00 Test Item Value Reference Range Interpretation Comments Potassium Lvl (test code = Potassium 4.1 3.5-5.1 Lvl) [place] 246621-09-04 09:26:00 Test Item Value Reference Range Interpretation Comments Chloride Lvl (test code = Chloride Lvl) 107 95-109 [place] 246621-09-04 09:26:00 Test Item Value Reference Range Interpretation Comments CO2 (test code = CO2) 31 24-32 [place] 246621-09-04 09:26:00 Test Item Value Reference Range Interpretation Comments Calcium Lvl (test code = Calcium Lvl) 8.5 8.5-10.5 [place] [address]-09-04 09:26:00 Test Item Value Reference Range Interpretation Comments AGAP (test code = AGAP) 8.1 10.0-20.0 [place] 246621-09-04 09:26:00 Test Item Value Reference Range Interpretation Comments eGFR (test code = eGFR) 100 [place] 246621-09-04 09:26:00 Test Item Value Reference Range Interpretation Comments Magnesium Lvl (test code = Magnesium 1.9 1.8-2.4 Lvl) [place] 246621-09-04 09:26:00 Test Item Value Reference Range Interpretation Comments Phosphorus (test code = Phosphorus) 4.0 2.5-4.5 [place] 540761-09-04 09:26:00 Test Item Value Reference Range Interpretation Comments RBC Morph (test code = Normal (05/03/21 4:26 AM) RBC Morph) [place] 540761-09-04 09:26:00 Test Item Value Reference Range Interpretation Comments Plt Morph (test code = Normal (05/03/21 4:26 AM) Plt Morph) [place] 540761-09-04 09:26:00 Test Item Value Reference Range Interpretation Comments Segs (test code = Segs) 62.2 45.0-75.0 [place] 540761-09-04 09:26:00 Test Item Value Reference Range Interpretation Comments Lymphocytes (test code = Lymphocytes) 26.9 20.0-40.0 [place] [address]-09-04 09:26:00 Test Item Value Reference Range Interpretation Comments Monocytes (test code = Monocytes) 8.9 2.0-12.0 [place] [address]-09-04 09:26:00 Test Item Value Reference Range Interpretation Comments Eosinophils (test code = Eosinophils) 1.7 <=4.0 [place] 540761-09-04 09:26:00 Test Item Value Reference Range Interpretation Comments Basophils (test code = Basophils) 0.3 <=1.0 [place] 540761-09-04 09:26:00 Test Item Value Reference Range Interpretation Comments Neutrophils # (test code = Neutrophils 5.9 1.5-8.1 #) [facility] HospitalMkboajwZLFELTOMPH5151-77-01 09:26:00 Test Item Value Reference Range Interpretation Comments Lymphocytes # (test code = Lymphocytes 2.6 1.0-5.5 #) [facility] HospitalLohxhvzUDEAJIYDVG4783-07-68 09:26:00 Test Item Value Reference Range Interpretation Comments Monocytes # (test code = Monocytes #) 0.8 <=0.8 [facility] HospitalFvtlodlHXXRTNBWHJ3548-23-07 09:26:00 Test Item Value Reference Range Interpretation Comments Eosinophils # (test code = Eosinophils 0.2 <=0.5 #) [facility] HospitalBqqppqiZZEOAHQGKI2313-00-95 09:26:00 Test Item Value Reference Range Interpretation Comments WBC (test code = WBC) 9.5 3.7-10.4 [facility] HospitalFbvflzyDSTDKQEXXZ5164-75-96 09:26:00 Test Item Value Reference Range Interpretation Comments RBC (test code = RBC) 3.50 4.20-5.40 [facility] HospitalWxybdihCBBIWCYXFM4542-02-45 09:26:00 Test Item Value Reference Range Interpretation Comments Hgb (test code = Hgb) 10.0 12.0-16.0 [place] 540761-09-04 09:26:00 Test Item Value Reference Range Interpretation Comments Hct (test code = Hct) 30.9 36.0-48.0 [place] 540761-09-04 09:26:00 Test Item Value Reference Range Interpretation Comments MCV (test code = MCV) 88.3 80.0-98.0 [facility] HospitalUcepdclXQSBBSXWPF5984-24-23 09:26:00 Test Item Value Reference Range Interpretation Comments MCH (test code = MCH) 28.6 pg 27.0-31.0 [place] 540761-09-04 09:26:00 Test Item Value Reference Range Interpretation Comments MCHC (test code = MCHC) 32.4 32.0-36.0 [facility] PearlandZinskyeGCTKPLVLPL1464-21-06 09:26:00 Test Item Value Reference Range Interpretation Comments RDW (test code = RDW) 14.7 11.5-14.5 [facility] HospitalVgvllajHOLNTVVPSL8117-58-43 09:26:00 Test Item Value Reference Range Interpretation Comments Platelet (test code = Platelet) 647 133-450 [facility] HospitalElhvfciRDLMQGIMQO5341-25-86 09:26:00 Test Item Value Reference Range Interpretation Comments MPV (test code = MPV) 7.7 7.4-10.4 [facility] [id number] 20:43:00 Test Item Value Reference Range Interpretation Comments Ammonia (test code = Ammonia) 28.0 [facility] EMRIKOO1758-00-36 15:48:00 Test Item Value Reference Range Interpretation Comments Troponin-I (test code = Troponin-I) no gt <=0.40 [facility] UFXNAGR3188-46-96 11:48:00 Test Item Value Reference Range Interpretation Comments Troponin-I (test code = Troponin-I) no gt <=0.40 [facility] [employer] RERTQ5691-63-93 11:48:00 Test Item Value Reference Range Interpretation Comments Glucose Lvl (test code = Glucose Lvl) 84 70-99 [facility] YDCNV3861-03-67 11:48:00 Test Item Value Reference Range Interpretation Comments BUN (test code = BUN) 23 7-22 [facility] [employer] [id number] 11:48:00 Test Item Value Reference Range Interpretation Comments Creatinine Lvl (test code = Creatinine 0.66 0.50-1.40 Lvl) [facility] [employer] IUDJU7681-03-35 11:48:00 Test Item Value Reference Range Interpretation Comments Sodium Lvl (test code = Sodium Lvl) 141 135-145 [facility] [employer] YPAHW8996-80-16 11:48:00 Test Item Value Reference Range Interpretation Comments Potassium Lvl (test code = Potassium 3.5 3.5-5.1 Lvl) [facility] [employer] [id number] 11:48:00 Test Item Value Reference Range Interpretation Comments Chloride Lvl (test code = Chloride Lvl) 106 95-109 [facility] [id number] 11:48:00 Test Item Value Reference Range Interpretation Comments CO2 (test code = CO2) 29 24-32 [place] 246621-09-03 11:48:00 Test Item Value Reference Range Interpretation Comments AGAP (test code = AGAP) 9.5 10.0-20.0 [place] 246621-09-03 11:48:00 Test Item Value Reference Range Interpretation Comments Calcium Lvl (test code = Calcium Lvl) 8.7 8.5-10.5 [facility]2021-09-03 11:48:00 Test Item Value Reference Range Interpretation Comments B/C Ratio (test code = B/C Ratio) 35 1 6-25 [place] 246621-09-03 11:48:00 Test Item Value Reference Range Interpretation Comments Total Protein (test code = Total 7.3 6.4-8.4 Protein) [facility]2021-09-03 11:48:00 Test Item Value Reference Range Interpretation Comments Albumin Lvl (test code = Albumin Lvl) 2.0 3.5-5.0 [facility]2021-09-03 11:48:00 Test Item Value Reference Range Interpretation Comments Globulin (test code = Globulin) 5.3 2.7-4.2 [facility]2021-09-03 11:48:00 Test Item Value Reference Range Interpretation Comments A/G Ratio (test code = A/G Ratio) 0.4 1 0.7-1.6 [facility]2021-09-03 11:48:00 Test Item Value Reference Range Interpretation Comments ALT (test code = ALT) 29 <=65 [place] 246621-09-03 11:48:00 Test Item Value Reference Range Interpretation Comments AST (test code = AST) 23 <=37 [place] 246621-09-03 11:48:00 Test Item Value Reference Range Interpretation Comments Alk Phos (test code = Alk Phos) 189 39-136 [facility]2021-09-03 11:48:00 Test Item Value Reference Range Interpretation Comments Bili Total (test code = Bili Total) 0.2 0.2-1.3 [place] 246621-09-03 11:48:00 Test Item Value Reference Range Interpretation Comments eGFR (test code = eGFR) 94 [facility]2021-09-03 11:48:00 Test Item Value Reference Range Interpretation Comments Phosphorus (test code = Phosphorus) 4.4 2.5-4.5 [facility]2021-09-03 11:48:00 Test Item Value Reference Range Interpretation Comments Procalcitonin Lvl (test code = <0.05 ng/mL <=0.10 Procalcitonin Lvl) [facility]2021-09-03 11:48:00 Test Item Value Reference Range Interpretation Comments Magnesium Lvl (test code = Magnesium 1.8 1.8-2.4 Lvl) [facility] HospitalNkubkjtNYJVGKUTHR3849-76-14 11:48:00 Test Item Value Reference Range Interpretation Comments WBC (test code = WBC) 8.8 3.7-10.4 [place] 540761-09-03 11:48:00 Test Item Value Reference Range Interpretation Comments RBC (test code = RBC) 3.56 4.20-5.40 [place] 540761-09-03 11:48:00 Test Item Value Reference Range Interpretation Comments Hgb (test code = Hgb) 10.4 12.0-16.0 [place] 540761-09-03 11:48:00 Test Item Value Reference Range Interpretation Comments Hct (test code = Hct) 31.3 36.0-48.0 [facility] HospitalCnejnftORUVKUWPEI0622-43-58 11:48:00 Test Item Value Reference Range Interpretation Comments MCV (test code = MCV) 87.9 80.0-98.0 [place] 540761-09-03 11:48:00 Test Item Value Reference Range Interpretation Comments MCH (test code = MCH) 29.1 pg 27.0-31.0 [place] 540761-09-03 11:48:00 Test Item Value Reference Range Interpretation Comments MCHC (test code = MCHC) 33.1 32.0-36.0 [place] [address]-09-03 11:48:00 Test Item Value Reference Range Interpretation Comments RDW (test code = RDW) 15.0 11.5-14.5 [place] 540761-09-03 11:48:00 Test Item Value Reference Range Interpretation Comments Platelet (test code = Platelet) 585 133-450 [place] 540761-09-03 11:48:00 Test Item Value Reference Range Interpretation Comments MPV (test code = MPV) 7.9 7.4-10.4 [place] 540761-09-03 11:48:00 Test Item Value Reference Range Interpretation Comments Segs (test code = Segs) 64.3 45.0-75.0 [place] 540761-09-03 11:48:00 Test Item Value Reference Range Interpretation Comments Lymphocytes (test code = Lymphocytes) 26.4 20.0-40.0 [place] 540761-09-03 11:48:00 Test Item Value Reference Range Interpretation Comments Monocytes (test code = Monocytes) 8.2 2.0-12.0 [place] 540761-09-03 11:48:00 Test Item Value Reference Range Interpretation Comments Eosinophils (test code = Eosinophils) 0.9 <=4.0 [place] 540761-09-03 11:48:00 Test Item Value Reference Range Interpretation Comments Basophils (test code = Basophils) 0.2 <=1.0 [place] 540761-09-03 11:48:00 Test Item Value Reference Range Interpretation Comments Neutrophils # (test code = Neutrophils 5.7 1.5-8.1 #) [facility] HospitalPkykpvdRUTSOBMUHR0308-18-70 11:48:00 Test Item Value Reference Range Interpretation Comments Lymphocytes # (test code = Lymphocytes 2.3 1.0-5.5 #) [facility] HospitalBwuqeqvPHSJDXGSIO3985-19-16 11:48:00 Test Item Value Reference Range Interpretation Comments Monocytes # (test code = Monocytes #) 0.7 <=0.8 [place] [address]-09-03 11:48:00 Test Item Value Reference Range Interpretation Comments Eosinophils # (test code = Eosinophils 0.1 <=0.5 #) [place] 976331-09-03 11:48:00 Test Item Value Reference Range Interpretation Comments Trig (test code = Trig) 177 [place] 976331-09-03 11:48:00 Test Item Value Reference Range Interpretation Comments Chol (test code = Chol) [address] [place] 976331-09-03 11:48:00 Test Item Value Reference Range Interpretation Comments HDL (test code = HDL) [address] [place] [address]-09-03 11:48:00 Test Item Value Reference Range Interpretation Comments CHD Risk (test code = CHD Risk) 6.12 1 3.90-5.80 [id number] 11:48:00 Test Item Value Reference Range Interpretation Comments LDL (Calculated) (test code = LDL 98 (Calculated)) [facility] HospitalWiexmofMULHOF7315-56-93 11:48:00 Test Item Value Reference Range Interpretation Comments VLDL (test code = VLDL) 35 1 [facility]annSPECIAL [id number] 11:48:00 Test Item Value Reference Range Interpretation Comments Hgb A1C (test code = Hgb A1C) 6.1 [facility] HospitalDfihmxxEEVWKNHFCJ3258-05-59 11:48:00 Test Item Value Reference Range Interpretation Comments Vanco Lvl (test code = Vanco Lvl) 24.4 [facility]annBACTERIAL - [id number] 09:29:00 Test Item Value Reference Range Interpretation Comments MRSA by PCR (test Negative (05/02/21 4:29 code = MRSA by PCR) AM) [facility] - [id number] 07:14:00 Test Item Value Reference Range Interpretation Comments Source Strep (test code Urine *NA*(05/02/21 2:14 = Source Strep) AM) [facility]annBACTERIAL - [id number] 07:14:00 Test Item Value Reference Range Interpretation Comments Strep pneumoniae Ag Negative (05/02/21 2:14 (test code = Strep AM) pneumoniae Ag) [facility]landMOLECULAR [id number] 07:09:00 Test Item Value Reference Range Interpretation Comments Source Respiratory Nasophrngl Swb Panel PCR (test code = *NA*(05/02/21 2:09 AM) Source Respiratory Panel PCR) [facility] [id number] 07:09:00 Test Item Value Reference Range Interpretation Comments Influenza A PCR (test Negative *NA*(05/02/21 code = Influenza A PCR) 2:09 AM) [facility] [id number] 07:09:00 Test Item Value Reference Range Interpretation Comments Influenza B PCR (test Negative *NA*(05/02/21 code = Influenza B PCR) 2:09 AM) [facility] [id number] 07:09:00 Test Item Value Reference Range Interpretation Comments RSV PCR (test code = Negative *NA*(05/02/21 RSV PCR) 2:09 AM) [facility] AND [id number] 03:34:00 Test Item Value Reference Range Interpretation Comments UA Color (test code = Light Yellow UA Color) *NA*(05/01/21 10:34 PM) [facility] AND [id number] 03:34:00 Test Item Value Reference Range Interpretation Comments UA Turbidity (test code Slight *ABN*(05/01/21 = UA Turbidity) 10:34 PM) [facility] AND [id number] 03:34:00 Test Item Value Reference Range Interpretation Comments UA Spec Grav (test code = UA Spec 1.045 1 Grav) [facility] AND [id number] 03:34:00 Test Item Value Reference Range Interpretation Comments UA pH (test code = UA pH) 5.0 1 5.0-8.0 [facility] AND [id number] 03:34:00 Test Item Value Reference Range Interpretation Comments UA Protein (test code Negative (05/01/21 10:34 = UA Protein) PM) [facility] AND [id number] 03:34:00 Test Item Value Reference Range Interpretation Comments UA Glucose (test code Negative *NA*(05/01/21 = UA Glucose) 10:34 PM) [facility] AND [id number] 03:34:00 Test Item Value Reference Range Interpretation Comments UA Ketones (test code Negative *NA*(05/01/21 = UA Ketones) 10:34 PM) [facility] AND [id number] 03:34:00 Test Item Value Reference Range Interpretation Comments UA Bili (test code = Negative *NA*(05/01/21 UA Bili) 10:34 PM) [facility] AND [id number] 03:34:00 Test Item Value Reference Range Interpretation Comments UA Blood (test code = Negative (05/01/21 10:34 UA Blood) PM) [facility] AND [id number] 03:34:00 Test Item Value Reference Range Interpretation Comments UA Urobilinogen (test code = UA <=1.0 mg/dL 0.1-1.0 Urobilinogen) [facility] [id number] 03:34:00 Test Item Value Reference Range Interpretation Comments UA Nitrite (test code Negative (05/01/21 10:34 = UA Nitrite) PM) [facility] [id number] 03:34:00 Test Item Value Reference Range Interpretation Comments UA Leuk Est (test code Large *ABN*(05/01/21 = UA Leuk Est) 10:34 PM) [facility] [id number] 03:34:00 Test Item Value Reference Range Interpretation Comments UA Sq Epi (test code = UA Sq Epi) Few /LPF [facility] [id number] 03:34:00 Test Item Value Reference Range Interpretation Comments UA WBC (test code = UA WBC) 76 <=5 [facility] [id number] 03:34:00 Test Item Value Reference Range Interpretation Comments UA RBC (test code = UA RBC) 31 <=2 [facility] [id number] 03:34:00 Test Item Value Reference Range Interpretation Comments UA Mucus (test code = UA Mucus) Few /LPF [facility]annCulture: [id number] 03:34:00 Test Item Value Reference Range Interpretation Comments Culture: Urine (test <10,000 CFU/mL Yeast code = Culture: Urine) [facility]annCARDIAC [id number] 00:51:00 Test Item Value Reference Range Interpretation Comments Troponin-I (test code = Troponin-I) no gt <=0.40 [facility]annCARDIAC [id number] 00:51:00 Test Item Value Reference Range Interpretation Comments BNP (test code = BNP) 252 [facility]annCHEM [id number] 00:51:00 Test Item Value Reference Range Interpretation Comments Total Protein (test code = Total 7.7 6.4-8.4 Protein) [facility]annCHEM [id number] 00:51:00 Test Item Value Reference Range Interpretation Comments Albumin Lvl (test code = Albumin Lvl) 2.0 3.5-5.0 [facility]annCHEM [id number] 00:51:00 Test Item Value Reference Range Interpretation Comments ALT (test code = ALT) 33 <=65 [facility]2021-09-03 00:51:00 Test Item Value Reference Range Interpretation Comments AST (test code = AST) 33 <=37 [place] 246621-09-03 00:51:00 Test Item Value Reference Range Interpretation Comments Alk Phos (test code = Alk Phos) 208 39-136 [place] 246621-09-03 00:51:00 Test Item Value Reference Range Interpretation Comments Bili Total (test code = Bili Total) 0.1 0.2-1.3 [place] 246621-09-03 00:51:00 Test Item Value Reference Range Interpretation Comments B/C Ratio (test code = B/C Ratio) 38 1 6-25 [place] 246621-09-03 00:51:00 Test Item Value Reference Range Interpretation Comments Globulin (test code = Globulin) 5.7 2.7-4.2 [place] 246621-09-03 00:51:00 Test Item Value Reference Range Interpretation Comments A/G Ratio (test code = A/G Ratio) 0.4 1 0.7-1.6 [place] 246621-09-03 00:51:00 Test Item Value Reference Range Interpretation Comments Lactic Acid Lvl (test code = Lactic 0.9 0.5-2.2 Acid Lvl) [facility] H[id number] 00:51:00 Test Item Value Reference Range Interpretation Comments RBC Morph (test code = Normal (05/01/21 7:51 PM) RBC Morph) [place] 540761-09-03 00:51:00 Test Item Value Reference Range Interpretation Comments Plt Morph (test code = Normal (05/01/21 7:51 PM) Plt Morph) [place] 540761-09-03 00:51:00 Test Item Value Reference Range Interpretation Comments Segs (test code = Segs) 79.1 45.0-75.0 [place] 540761-09-03 00:51:00 Test Item Value Reference Range Interpretation Comments Lymphocytes (test code = Lymphocytes) 14.0 20.0-40.0 [place] 540761-09-03 00:51:00 Test Item Value Reference Range Interpretation Comments Monocytes (test code = Monocytes) 6.2 2.0-12.0 [facility] Hospit[id number] 00:51:00 Test Item Value Reference Range Interpretation Comments Eosinophils (test code = Eosinophils) 0.2 <=4.0 [facility] HospitalZdicxenPGPQRRDYFH3668-19-20 00:51:00 Test Item Value Reference Range Interpretation Comments Basophils (test code = Basophils) 0.5 <=1.0 [facility] H[id number] 00:51:00 Test Item Value Reference Range Interpretation Comments Neutrophils # (test code = Neutrophils 11.2 1.5-8.1 #) [facility] HospitalAatuzlcTCIBKKFSHZ8801-90-04 00:51:00 Test Item Value Reference Range Interpretation Comments Lymphocytes # (test code = Lymphocytes 2.0 1.0-5.5 #) [facility] HospitalEfthyisRHARNRDOGY6364-70-31 00:51:00 Test Item Value Reference Range Interpretation Comments Monocytes # (test code = Monocytes #) 0.9 <=0.8 [place] 540761-09-03 00:51:00 Test Item Value Reference Range Interpretation Comments Basophils # (test code = Basophils #) 0.1 <=0.2 [place] 540761-09-03 00:51:00 Test Item Value Reference Range Interpretation Comments WBC (test code = WBC) 14.2 3.7-10.4 [facility] HospitalLtmtnedZCPXOUAFLL1300-20-52 00:51:00 Test Item Value Reference Range Interpretation Comments RBC (test code = RBC) 3.68 4.20-5.40 [facility] HospitalChixiveVXCGKTHDHG8645-34-51 00:51:00 Test Item Value Reference Range Interpretation Comments Hgb (test code = Hgb) 10.4 12.0-16.0 [place] 540761-09-03 00:51:00 Test Item Value Reference Range Interpretation Comments Hct (test code = Hct) 32.5 36.0-48.0 [place] 540761-09-03 00:51:00 Test Item Value Reference Range Interpretation Comments MCV (test code = MCV) 88.3 80.0-98.0 [facility] HospitalByhjlulBZUKLVWWYR5543-85-59 00:51:00 Test Item Value Reference Range Interpretation Comments MCH (test code = MCH) 28.3 pg 27.0-31.0 [facility] HospitalObnyqkdXTGTFWNVTS8604-54-84 00:51:00 Test Item Value Reference Range Interpretation Comments MCHC (test code = MCHC) 32.0 32.0-36.0 [facility]landLivwuxdQADYZPKWGQ9244-27-19 00:51:00 Test Item Value Reference Range Interpretation Comments RDW (test code = RDW) 14.8 11.5-14.5 [facility]landEfsnbdmCUEFCPPDPE4099-44-51 00:51:00 Test Item Value Reference Range Interpretation Comments Platelet (test code = Platelet) 583 133-450 [facility]landDjlkkocQVHJWFCJPK9505-33-11 00:51:00 Test Item Value Reference Range Interpretation Comments MPV (test code = MPV) 7.7 7.4-10.4 [facility]aAbwkfazWZXELWOQBO8456-73-39 00:51:00 Test Item Value Reference Range Interpretation Comments PT (test code = PT) 13.4 s 12.0-14.7 [facility]penaGlohsqdXYSEIXBIIO4016-05-67 00:51:00 Test Item Value Reference Range Interpretation Comments INR (test code = INR) 1.03 1 0.85-1.17 [facility]aCwgyfotKZYPGXPSMW4009-24-54 00:51:00 Test Item Value Reference Range Interpretation Comments PTT (test code = PTT) 32.4 s 22.9-35.8 [facility]landMmwkbotUZBJJUGJYN7203-36-45 00:51:00 Test Item Value Reference Range Interpretation Comments Coronavirus (COVID-19) Not Detected (05/01/21 ALICIA (test code = 7:51 PM) Coronavirus (COVID-19) ALICIA) [facility] [id number] 14:45:00 Test Item Value Reference Range Interpretation Comments UA Sq Epi (test code = UA Sq Occasional /LPF Epi) [facility] [id number] 14:45:00 Test Item Value Reference Range Interpretation Comments UA WBC (test code = UA WBC) 4 <=5 [facility] [id number] 14:45:00 Test Item Value Reference Range Interpretation Comments UA RBC (test code = UA RBC) 1 <=2 [facility] [id number] 14:45:00 Test Item Value Reference Range Interpretation Comments UA Mucus (test code = UA Mucus) Few /LPF [facility] [id number] 14:45:00 Test Item Value Reference Range Interpretation Comments UA Color (test code = Light Yellow UA Color) *NA*(04/23/21 9:45 AM) [facility] AND [id number] 14:45:00 Test Item Value Reference Range Interpretation Comments UA Turbidity (test code = Clear (04/23/21 9:45 UA Turbidity) AM) [facility] AND [id number] 14:45:00 Test Item Value Reference Range Interpretation Comments UA Spec Grav (test code = UA Spec Grav) S3 [facility] AND [id number] 14:45:00 Test Item Value Reference Range Interpretation Comments UA pH (test code = UA pH) 5.0 1 5.0-8.0 [facility] AND [id number] 14:45:00 Test Item Value Reference Range Interpretation Comments UA Protein (test code Negative (04/23/21 9:45 = UA Protein) AM) [facility] AND [id number] 14:45:00 Test Item Value Reference Range Interpretation Comments UA Glucose (test code Negative *NA*(04/23/21 = UA Glucose) 9:45 AM) [facility] AND [id number] 14:45:00 Test Item Value Reference Range Interpretation Comments UA Ketones (test code Negative *NA*(04/23/21 = UA Ketones) 9:45 AM) [facility] AND [id number] 14:45:00 Test Item Value Reference Range Interpretation Comments UA Bili (test code = Negative *NA*(04/23/21 UA Bili) 9:45 AM) [facility] AND [id number] 14:45:00 Test Item Value Reference Range Interpretation Comments UA Blood (test code = Small *ABN*(04/23/21 UA Blood) 9:45 AM) [facility] AND [id number] 14:45:00 Test Item Value Reference Range Interpretation Comments UA Urobilinogen (test code = UA <=1.0 mg/dL 0.1-1.0 Urobilinogen) [facility] AND [id number] 14:45:00 Test Item Value Reference Range Interpretation Comments UA Nitrite (test code Negative (04/23/21 9:45 = UA Nitrite) AM) [facility] AND [id number] 14:45:00 Test Item Value Reference Range Interpretation Comments UA Leuk Est (test code Trace *ABN*(04/23/21 = UA Leuk Est) 9:45 AM) [facility] [id number] 12:43:00 Test Item Value Reference Range Interpretation Comments Lactic Acid Lvl (test code = Lactic 1.5 0.5-2.2 Acid Lvl) [facility] [id number] 12:43:00 Test Item Value Reference Range Interpretation Comments Procalcitonin Lvl (test code = <0.05 ng/mL <=0.10 Procalcitonin Lvl) [facility]landSsufznaUPZSVFWIJD6061-70-51 11:41:00 Test Item Value Reference Range Interpretation Comments Coronavirus (COVID-19) Not Detected (04/23/21 ALICIA (test code = 6:41 AM) Coronavirus (COVID-19) ALICIA) [facility]landCARDIAC [id number] 10:54:00 Test Item Value Reference Range Interpretation Comments Troponin-I (test code = Troponin-I) no gt <=0.40 [facility]annCARAC [id number] 10:54:00 Test Item Value Reference Range Interpretation Comments BNP (test code = BNP) 87 [facility] [id number] 10:54:00 Test Item Value Reference Range Interpretation Comments Glucose Lvl (test code = Glucose Lvl) 105 70-99 [facility] [id number] 10:54:00 Test Item Value Reference Range Interpretation Comments BUN (test code = BUN) 18 7-22 [facility]2021-08-25 10:54:00 Test Item Value Reference Range Interpretation Comments Creatinine Lvl (test code = Creatinine 0.75 0.50-1.40 Lvl) [facility] [id number] 10:54:00 Test Item Value Reference Range Interpretation Comments Sodium Lvl (test code = Sodium Lvl) 139 135-145 [facility]2021-08-25 10:54:00 Test Item Value Reference Range Interpretation Comments Potassium Lvl (test code = Potassium 3.8 3.5-5.1 Lvl) [facility] [id number] 10:54:00 Test Item Value Reference Range Interpretation Comments Chloride Lvl (test code = Chloride Lvl) 103 95-109 [facility]2021-08-25 10:54:00 Test Item Value Reference Range Interpretation Comments CO2 (test code = CO2) 29 24-32 [facility]2021-08-25 10:54:00 Test Item Value Reference Range Interpretation Comments Calcium Lvl (test code = Calcium Lvl) 9.1 8.5-10.5 [facility]2021-08-25 10:54:00 Test Item Value Reference Range Interpretation Comments Total Protein (test code = Total 7.9 6.4-8.4 Protein) [facility] HospitalADMI HoldingsECU HEALTH ROANO[facility]-CHOWAN [id number] 10:54:00 Test Item Value Reference Range Interpretation Comments Albumin Lvl (test code = Albumin Lvl) 3.0 3.5-5.0 [facility] HospitalADMI HoldingsECU HEALTH ROANOKE-CHOWAN [id number] 10:54:00 Test Item Value Reference Range Interpretation Comments ALT (test code = ALT) 17 <=65 [facility] HospitalC8 [employer] [id number] 10:54:00 Test Item Value Reference Range Interpretation Comments AST (test code = AST) 14 <=37 [facility] HospitalADMI HoldingsECU HEALTH ROANOKE-CHOWAN [id number] 10:54:00 Test Item Value Reference Range Interpretation Comments Alk Phos (test code = Alk Phos) 115 39-136 [facility]2021-08-25 10:54:00 Test Item Value Reference Range Interpretation Comments Bili Total (test code = Bili Total) 0.2 0.2-1.3 [facility]2021-08-25 10:54:00 Test Item Value Reference Range Interpretation Comments AGAP (test code = AGAP) 10.8 10.0-20.0 [facility]2021-08-25 10:54:00 Test Item Value Reference Range Interpretation Comments B/C Ratio (test code = B/C Ratio) 24 1 6-25 [facility]2021-08-25 10:54:00 Test Item Value Reference Range Interpretation Comments Globulin (test code = Globulin) 4.9 2.7-4.2 [facility] PearlandWorkProducts [id number] 10:54:00 Test Item Value Reference Range Interpretation Comments A/G Ratio (test code = A/G Ratio) 0.6 1 0.7-1.6 [facility]2021-08-25 10:54:00 Test Item Value Reference Range Interpretation Comments eGFR (test code = eGFR) 85 [facility] [id number] 10:54:00 Test Item Value Reference Range Interpretation Comments Lipase Lvl (test code = Lipase Lvl) 151 73-393 [facility] HospitalJmjbeysMTYJUHZLUS7137-27-77 10:54:00 Test Item Value Reference Range Interpretation Comments WBC (test code = WBC) 10.7 3.7-10.4 [facility] Hos[id number] 10:54:00 Test Item Value Reference Range Interpretation Comments RBC (test code = RBC) 4.19 4.20-5.40 [facility] HospitalYfivosxOZPNRHCOOR5393-54-21 10:54:00 Test Item Value Reference Range Interpretation Comments Hgb (test code = Hgb) 12.3 12.0-16.0 [facility] H[id number] 10:54:00 Test Item Value Reference Range Interpretation Comments Hct (test code = Hct) 37.8 36.0-48.0 [facility] HospitalTnyxapeQJNODHIUOF7358-28-29 10:54:00 Test Item Value Reference Range Interpretation Comments MCV (test code = MCV) 90.3 80.0-98.0 [facility] HospitalHlpmzjdEBPUMPJKHN5129-45-34 10:54:00 Test Item Value Reference Range Interpretation Comments MCH (test code = MCH) 29.5 pg 27.0-31.0 [facility] HospitalEbuzbqfUTARTLTKMQ1235-11-44 10:54:00 Test Item Value Reference Range Interpretation Comments MCHC (test code = MCHC) 32.6 32.0-36.0 [facility] HospitalQkjwwiqNBESDACALK0459-20-25 10:54:00 Test Item Value Reference Range Interpretation Comments RDW (test code = RDW) 14.4 11.5-14.5 [facility] HospitalLthoexnBOEQKVVZHL6308-30-16 10:54:00 Test Item Value Reference Range Interpretation Comments Platelet (test code = Platelet) 275 133-450 [facility] HospitalPhtdszlSZGOXKMVQQ0707-46-98 10:54:00 Test Item Value Reference Range Interpretation Comments MPV (test code = MPV) 8.6 7.4-10.4 [facility] HospitalPwiwqffIKNXBILUMZ0392-15-13 10:54:00 Test Item Value Reference Range Interpretation Comments Segs (test code = Segs) 81.8 45.0-75.0 [facility]aOgjigukARYSPWJDUN6338-47-91 10:54:00 Test Item Value Reference Range Interpretation Comments Lymphocytes (test code = Lymphocytes) 10.6 20.0-40.0 [facility]penaKzttfdwVMWSVWBMOM4187-94-43 10:54:00 Test Item Value Reference Range Interpretation Comments Monocytes (test code = Monocytes) 7.2 2.0-12.0 [facility] HospitalAlvbifoVTZWRMTDZB5897-57-65 10:54:00 Test Item Value Reference Range Interpretation Comments Eosinophils (test code = Eosinophils) 0.1 <=4.0 [facility] HospitalZwtwxpgMLIFYMPTGT6796-72-31 10:54:00 Test Item Value Reference Range Interpretation Comments Basophils (test code = Basophils) 0.3 <=1.0 [facility] HospitalDgvljgsRFTYCCETMI8900-38-58 10:54:00 Test Item Value Reference Range Interpretation Comments Neutrophils # (test code = Neutrophils 8.7 1.5-8.1 #) [facility] HospitalZqkawhpGWEWVFOINR3961-68-26 10:54:00 Test Item Value Reference Range Interpretation Comments Lymphocytes # (test code = Lymphocytes 1.1 1.0-5.5 #) [facility] HospitalUknlrkfMKCPJJTTLV9709-73-92 10:54:00 Test Item Value Reference Range Interpretation Comments Monocytes # (test code = Monocytes #) 0.8 <=0.8 [facility]landFqibzdpGWSNEFWWVQ8991-34-49 05:49:00 Test Item Value Reference Range Interpretation Comments Coronavirus (COVID-19) Not Detected (04/18/21 ALICIA (test code = 12:49 AM) Coronavirus (COVID-19) ALICIA) [facility]landSIVE METABOLIC [id number] 22:00:00 Test Item Value Reference Range Interpretation Comments GLUCOSE (test code = 85 mg/dL 75-100 06D) SODIUM (test code = 139 mmol/L 136-145 01A) POTASSIUM (test code = 3.8 mmol/L 3.6-5.1 01B) CHLORIDE (test code = 105 mmol/L 98-107 04A) CO2 (test code = 02A) 28 mmol/L 22-32 ANION GAP (test code = 9.8 mmol/L ANG) BUN (test code = 05D) 25 mg/dL 7-18 H CREATININE (test code 0.6 mg/dL 0.4-1.1 = 03E) GFR (test code = GFR) 98 mL/min/1.73m\\S\\2 >=90 GFR 113 mL/min/1.73m\\S\\2 >=90 (test code = GFRAA) EGFR (test code = eGFR BY CKD-EPI EGFR) CALCULATION IS NOT RECOMMENDED FOR PATIENTS UNDER 18 YEARS OF AGE. BUN/CREA (test code = 42 12-20 H BCR) CALCIUM (test code = 8.9 mg/dL 8.3-9.5 09D) BILI TOTAL (test code 0.6 mg/dL 0.2-1.0 = 11A) PROTEIN (test code = 7.4 g/dL 6.4-8.2 07D) ALBUMIN (test code = 3.3 g/dL 3.5-4.8 L 08D) GLOBULIN (test code = 4.1 g/dL 1.5-3.8 H GLB) ALB/GLOB (test code = 0.8 1.0-2.6 L AGRR) ALK PHOS (test code = 105 IU/L 42-121 35A) AST (test code = 30A) 22 IU/L <=42 ALT (test code = 31A) 20 IU/L <=78 CBC (INCLUDES AUTOMATED DIFFERENTIAL)2020-06-15 21:45:00 Test Item Value Reference Range Interpretation Comments WBC (test code = WBC) 9.1 10\\S\\3/uL 4.5-11.0 RBC (test code = RBC) 4.33 10\\S\\6/uL 4.20-5.60 HGB (test code = HBG) 12.9 g/dL 12.0-15.5 HCT (test code = HCT) 40.7 % 35.0-44.0 MCV (test code = MCV) 94.0 fL 81.0-99.0 MCH (test code = MCH) 29.8 pg 27.0-31.0 MCHC (test code = MCHC) 31.7 g/dL 32.0-36.0 L RDW (test code = RDW) 13.4 % 11.5-14.5 PLT (test code = PLT) 285 10\\S\\3/uL 130-400 MPV (test code = MPV) 10.3 fL 9.4-12.4 NEUTROP # (test code = NE#) 6.2 10\\S\\3/uL 1.6-8.0 LYMPH # (test code = LY#) 1.9 10\\S\\3/uL 1.1-3.5 MONOCYTE # (test code = MO#) 0.7 10\\S\\3/uL 0.0-1.1 EOSINOPH # (test code = EO#) 0.2 10\\S\\3/uL 0.0-0.7 BASOPHIL # (test code = BA#) 0.0 10\\S\\3/uL 0.0-0.3 IG # (test code = IG#) 0.02 10\\S\\3/uL 0.00-0.06 NRBC # (test code = NRBC#) 0.00 10\\S\\3/uL 0.00-0.01 NEUTROPH % (test code = NE%) 68.9 % 35.0-73.0 LYMPH % (test code = LY%) 21.4 % 20.0-55.0 MONO % (test code = MO%) 7.3 % 2.5-10.0 EOSINOPH % (test code = EO%) 1.9 % 0.0-5.0 BASOPHIL % (test code = BA%) 0.3 % 0.0-2.0 IG % (test code = IG%) 0.2 % 0.0-0.8 NRBC% (test code = NRBC%) 0.0 % 0.0-0.2 MANDIFF (test code = MDIFF) NO RBC MORPH (test code = RBCMOR) NORMAL Arterial Blood [id number] 21:16:00 Test Item Value Reference Range Interpretation Comments pH (test code = PHRT) 7.408 7.350-7.450 pCO2 (test code = 40.3 mmHg 35.0-45.0 PCO2RT) pO2 (test code = 93.0 mmHg 80.0-110.0 PO2RT) HCO3? (test code = 24.9 mmol/L 22.0-26.0 HCO3) JOSE (test code = JOSE) 0.8 mmol/L -3.0-3.0 tHb (test code = 13.2 g/dL 12.0-15.5 THBRT) sO2 (test code = 97.3 % 92.0-100.0 SO2RT) FO2Hb (test code = 94.0 % 94.0-100.0 YT0SBCA) FCOHb (test code = 2.0 % 0.0-3.0 FCOHBRT) FMetHb (test code = 1.4 % 0.2-0.6 H FMETHBRT) ABGTEMP (test code = * Temp Corrected Values* ABGTEMP) ABGTEMP (test code = 37.0 ?C ABGTEMP.) pH (T) (test code = 7.408 7.350-7.450 PHTEMP) pCO2 (T) (test code = 40.3 mmHg 35.0-45.0 [id number]) pO2 (T) (test code = 93.0 mmHg 80.0-110.0 [id number]) Device (test code = ROOM AIR DEVICE) FI02 (test code = 21.0 % FI02) Liter_flow (test code = LF) VENPAR (test code = * Ventilator Parameters VENPAR) * SIMV (test code = SIMV) A/C (test code = A/C) CPAP (test code = CPAP) PEEP (test code = PEEP) PS (test code = PS) PIP (test code = PIP) I_Time (test code = ITIME) Vt (test code = VT) BIPAP INSP (test code = BIPAPINP) BIPAP EXP (test code = BIPAPEXP) Aman test (test code Positive = ATEST) SAMPLE SITE (test Left Radial Artery code = SSITE) COMMENT (test code = CO) BLOOD [id number] 07:49:00 Test Item Value Reference Range Interpretation Comments Culture Observations (test NO GROWTH AFTER 5 code = COB1) DAYS BLOOD [id number] 07:49:00 Test Item Value Reference Range Interpretation Comments Culture Observations (test NO GROWTH AFTER 5 code = COB1) DAYS DIRECT STREP GROUP [id number] 11:36:00 Test Item Value Reference Range Interpretation Comments Culture Observations NO BETA HEMOLYTIC (test code = COB1) STREPTOCOCCUS ISOLATED Direct Exam (test code NEGATIVE FOR STREP A = DE3) ANTIGEN URINE [id number] 10:25:00 Test Item Value Reference Range Interpretation Comments Culture Observations THREE OR MORE SPECIES (test code = COB1) OF BACTERIA ISOLATED. PROBABLE CONTAMINATION. Culture Observations IDENTIFICATION AND (test code = COB17) SUSCEPTIBILITY NOT INDICATED. RECOLLECTION RECOMMENDED Venous Blood [id number] 01:56:00 Test Item Value Reference Range Interpretation Comments VpH (test code = 7.318 7.300-7.400 VPHRT) VpCO2 (test code = 56.7 mmHg 40.0-50.0 H [id number]) VpO2 (test code = 35.6 mmHg 30.0-40.0 VPO2RT) HCO3? (test code = 28.3 mmol/L 22.0-26.0 H HCO3) JOSE (test code = JOSE) 1.6 mmol/L -3.0-3.0 tHb (test code = 12.3 g/dL 12.0-15.5 THBRT) vsO2 (test code = 61.1 % 55.0-75.0 VSO2RT) FO2Hb (test code = 60.0 % [id number]) FCOHb (test code = 1.1 % FCOHBRTV) FMetHb (test code = 0.7 % FMETHBRTV) ABGTEMP (test code = * Temp Corrected Values* ABGTEMP) ABGTEMP (test code = 37.0 ?C ABGTEMP.) pH (T) (test code = 7.318 7.300-7.400 PHTEMPV) pCO2 (T) (test code = 56.7 mmHg 40.0-50.0 H [id number]) pO2 (T) (test code = 35.6 mmHg 30.0-40.0 [id number]) Device (test code = ROOM AIR DEVICE) FI02 (test code = 21.0 % FI02) Liter_flow (test code = LF) VENPAR (test code = * Ventilator Parameters VENPAR) * SIMV (test code = SIMV) A/C (test code = A/C) CPAP (test code = CPAP) PEEP (test code = PEEP) PS (test code = PS) PIP (test code = PIP) I_Time (test code = ITIME) Vt (test code = VT) BIPAP INSP (test code = BIPAPINP) BIPAP EXP (test code = BIPAPEXP) SAMPLE SITE (test Vein code = SSITE) COMMENT (test code = CO) C-REACTIVE PROTEIN [id number] 00:41:00 Test Item Value Reference Range Interpretation Comments CRP (test code = CRP) NEGATIVE (<6MG/L) NEGATIVE (<6MG/L) [id number] 00:38:00 Test Item Value Reference Range Interpretation Comments CPK (test code = 32A) 99 IU/L 26-192 LDH-LACTIC [id number] 00:32:00 Test Item Value Reference Range Interpretation Comments LDH (test code = 33A) 198 IU/L 84-246 [id number] 00:32:00 Test Item Value Reference Range Interpretation Comments FERRITIN (test code = A19) 105.5 ng/mL 8.0-252.0 [id number] 00:32:00 Test Item Value Reference Range Interpretation Comments MAGNESIUM (test code = 48A) 2.0 mg/dL 1.8-2.4 BRAIN NATRIURETIC [id number] 00:23:00 Test Item Value Reference Range Interpretation Comments proBNP (test code = PBNP) 459 pg/mL 0-125 H LACTIC [id number] 00:21:00 Test Item Value Reference Range Interpretation Comments LACTIC ACD (test code = LA) 0.9 mmol/L 0.4-2.0 COMPREHENSIVE METABOLIC [id number] 00:21:00 Test Item Value Reference Range Interpretation Comments GLUCOSE (test code = 97 mg/dL 75-100 06D) SODIUM (test code = 136 mmol/L 136-145 01A) POTASSIUM (test code = 4.3 mmol/L 3.6-5.1 01B) CHLORIDE (test code = 102 mmol/L 98-107 04A) CO2 (test code = 02A) 27 mmol/L 22-32 ANION GAP (test code = 11.3 mmol/L ANG) BUN (test code = 05D) 22 mg/dL 7-18 H CREATININE (test code 0.8 mg/dL 0.4-1.1 = 03E) GFR (test code = GFR) 84 mL/min/1.73m\\S\\2 >=90 L GFR 97 mL/min/1.73m\\S\\2 >=90 (test code = GFRAA) EGFR (test code = eGFR BY CKD-EPI EGFR) CALCULATION IS NOT RECOMMENDED FOR PATIENTS UNDER 18 YEARS OF AGE. BUN/CREA (test code = 29 12-20 H BCR) CALCIUM (test code = 8.5 mg/dL 8.3-9.5 09D) BILI TOTAL (test code 0.4 mg/dL 0.2-1.0 = 11A) PROTEIN (test code = 7.2 g/dL 6.4-8.2 07D) ALBUMIN (test code = 3.3 g/dL 3.5-4.8 L 08D) GLOBULIN (test code = 3.9 g/dL 1.5-3.8 H GLB) ALB/GLOB (test code = 0.8 1.0-2.6 L AGRR) ALK PHOS (test code = 104 IU/L 42-121 35A) AST (test code = 30A) 26 IU/L <=42 ALT (test code = 31A) 18 IU/L <=78 DIRECT INFLUENZA A AND B [id number] 00:20:00 Test Item Value Reference Range Interpretation Comments Direct Exam (test PRESUMPTIVE NEGATIVE FOR code = DE3) THE PRESENCE OF INFLUENZA ANTIGEN TROPONIN [id number] 00:20:00 Test Item Value Reference Range Interpretation Comments TROPONIN I (test code = A84) <0.015 ng/mL 0.000-0.045 URINALYSIS WITH [id number] 00:17:00 Test Item Value Reference Range Interpretation Comments COLOR (test code = YELLOW YELLOW COLU) CLARITY (test code CLOUDY CLEAR A = CLA) GLUCOSE UR (test NEGATIVE NEGATIVE code = UA GLUCOSE) BILI UR (test code NEGATIVE NEGATIVE = BILE) KETONES UR (test NEGATIVE NEGATIVE code = NE) SP GRAVITY (test 1.026 1.005-1.030 code = SPGR) PH UR (test code = 5.5 4.5-8.0 PH) PROTEIN UR (test 1+ NEGATIVE A code = PU) UROBIL UR (test 0.2 EU/dL 0.2-1.0 code = UROQ) NITRITE UR (test NEGATIVE NEGATIVE code = NITRITE) BLOOD UR (test 1+ NEGATIVE A code = UA BLOOD) LEUK ES UR (test 2+ NEGATIVE A code = LEUK) WBC UR (test code 25 /HPF 0-5 H = UWBC) RBC UR (test code 8 /HPF 0-2 H = URBC) EPITH UR (test MODERATE /LPF FEW A code = UEPC) BACTERIA UR (test MANY /HPF NONE A code = UBACT) CAST UR (test code COARSELY GRANULAR NONE A Hayl ine Cast - Few = CAST) FEW /LPF CRYSTAL UR (test / LPF NONE code = CRYU) MUCUS UR (test FEW / HPF NONE A code = MUC) AMORPH UR (test / HPF NONE code = LIZZY) TRICH UR (test FEW /HPF NONE A code = UTRICH) YEAST UR (test /HPF NONE code = UY) SPERM UR (test /HPF NONE code = USPERM) [id number] 00:15:00 Test Item Value Reference Range Interpretation Comments D-DIMER (test code = 629 ng/mL D-DU 0-234 H DDI) D-DIMER COMMENT (test *Level to rule out code = DDCOM) DVT or PE: <235 ng/mL D-DU* PRO TIME AND [id number] 00:15:00 Test Item Value Reference Range Interpretation Comments PT (test code = 12.4 s 9.8-13.6 TT) INR (test code = 1.1 INR) INRH (test code = SUGGESTED THERAPEUTIC INRH) RANGE FOR INR: 2.5 - 3.5 For Patients with Prosthetic Valves or Patients with recurrent Thromboembolic Events 2.0 - 3.0 For Most Other Applications PTT (test code = 25.5 s 20.2-38.0 PTT) PTTH (test code = To monitor the PTTH) effectiveness of heparin, we offer the Anti-Xa (Heparin Assay). It can be used for either unfractionated or LMW Heparin. Order Code is ANTI-XA CBC (INCLUDES AUTOMATED DIFFERENTIAL)2020-01-21 00:01:00 Test Item Value Reference Range Interpretation Comments WBC (test code = WBC) 17.6 10\\S\\3/uL 4.5-11.0 H RBC (test code = RBC) 4.06 10\\S\\6/uL 4.20-5.60 L HGB (test code = HBG) 12.1 g/dL 12.0-15.5 HCT (test code = HCT) 37.4 % 35.0-44.0 MCV (test code = MCV) 92.1 fL 81.0-99.0 MCH (test code = MCH) 29.8 pg 27.0-31.0 MCHC (test code = MCHC) 32.4 g/dL 32.0-36.0 RDW (test code = RDW) 14.6 % 11.5-14.5 H PLT (test code = PLT) 232 10\\S\\3/uL 130-400 MPV (test code = MPV) 10.9 fL 9.4-12.4 NEUTROP # (test code = NE#) 14.7 10\\S\\3/uL 1.6-8.0 H LYMPH # (test code = LY#) 1.9 10\\S\\3/uL 1.1-3.5 MONOCYTE # (test code = MO#) 0.9 10\\S\\3/uL 0.0-1.1 EOSINOPH # (test code = EO#) 0.0 10\\S\\3/uL 0.0-0.7 BASOPHIL # (test code = BA#) 0.0 10\\S\\3/uL 0.0-0.3 IG # (test code = IG#) 0.08 10\\S\\3/uL 0.00-0.06 H NRBC # (test code = NRBC#) 0.00 10\\S\\3/uL 0.00-0.01 NEUTROPH % (test code = NE%) 83.6 % 35.0-73.0 H LYMPH % (test code = LY%) 10.5 % 20.0-55.0 L MONO % (test code = MO%) 5.0 % 2.5-10.0 EOSINOPH % (test code = EO%) 0.2 % 0.0-5.0 BASOPHIL % (test code = BA%) 0.2 % 0.0-2.0 IG % (test code = IG%) 0.5 % 0.0-0.8 NRBC% (test code = NRBC%) 0.0 % 0.0-0.2 MANDIFF (test code = MDIFF) NO NO RBC MORPH (test code = RBCMOR) NORMAL TISSUE [id number] 10:41:00Surgical Pathology Report Case: [id number] Authorizing Provider: Korina Cantu, Collected: 04/19/2018 0917 Ordering Location: [facility] PER[facility] Received: 04/19/2018 0951 SERVICES Pathologist: Conrado Mc MD Specimen: Condyle,Left Knee CONDYLES, LEFT KNEE, ARTHROPLASTY: - DEGENERATIVE CHANGES CONSISTENT WITH OSTEOARTHRITIS - SYNOVIUM WITH REACTIVE CHANGES Signing Pathologist Direct Phone Line: [phone] signed by Conrado Mc MD on 04/25/2018 at 10:41 [id number], [id number] osteoarthritis left kneeLeft knee condylesReceived fresh labeled "condyle, left knee" are four irregular jamil-white to yellow-solis portions of soft and osseous tissue to include the tibial plateau and femoral condyles measuring 14.5 x 8.5 x 2.0 cm in aggregate. The articular surfaces are jamil-white to yellow-solis and display focal areas of eburnation with obliteration of the demarcation between cortical and cancellous bone in these areas on cross sections. Section code: A1-A2, bone for decalcification; A3, soft tissue for decalcification. DB/plPerformed.BASIC METABOLIC [id number] 08:21:00 Test Item Value Reference Range Interpretation Comments SODIUM (BEAKER) 141 meq/L 136-145 (test code = 381) POTASSIUM (BEAKER) 4.2 meq/L 3.5-5.1 (test code = 379) CHLORIDE (BEAKER) 111 meq/L 98-107 H (test code = 382) CO2 (BEAKER) (test 24 meq/L 22-29 code = 355) BLOOD UREA NITROGEN 27 mg/dL 7-21 H (BEAKER) (test code = 354) CREATININE (BEAKER) 0.67 mg/dL 0.57-1.25 (test code = 358) GLUCOSE RANDOM 95 mg/dL 70-105 (BEAKER) (test code = 652) CALCIUM (BEAKER) 8.5 mg/dL 8.4-10.2 (test code = 697) EGFR (BEAKER) (test 90 mL/min/1.73 ESTIMA CODY GFR IS code = 1092) sq m NOT ACCURATE CREATININE CLEARANCE IN PREDICTING GLOMERULAR FILTRATION RATE . ESTIMATED GFR I S NOT APPLICABLE FOR DIALYSIS PATIEN TS. HEMOGLOBIN AND [id number] 08:04:00 Test Item Value Reference Range Interpretation Comments HEMOGLOBIN (BEAKER) (test code = 10.2 GM/DL 11.2-15.7 L 410) HEMATOCRIT (BEAKER) (test code = 33.3 % 34.1-44.9 L 411)
--- NOTE | 2023-08-01 19:52 | RAD REPORT ---
EXAM DESCRIPTION: Russ Single View08/01/2023 7:26 pm CLINICAL HISTORY: Chest pain COMPARISON: none FINDINGS: The lungs appear clear of acute infiltrate. The heart is normal size Old rib fractures IMPRESSION: No acute abnormalities displayed
[2023-08-01] MEDS ORDERED: NA CHLORIDE 0.9% 500 ML ONE (20:04)
[2023-08-01] MEDS ORDERED: DIPHENHYDRAMINE 50 MG/ML VIAL ONE (20:04)
[2023-08-01] MEDS ORDERED: ONDANSETRON 4 MG/2 ML VIAL ONE (20:04)
[2023-08-01] MEDS ORDERED: FAMOTIDINE 20 MG/2 ML VIAL IV ONE (20:05)
[2023-08-01] MEDS ORDERED: GABAPENTIN 100 MG CAP ONE (20:45)
[2023-08-01 23:19] LABS: Absolute Lymphocytes (CBC) 2.5 K/uL (0.7-4.9); Hematocrit 32.9 % (36.0-45.0); Lymphocytes % 32.8 % (15.3-44.8); MCV 90.7 fL (80-100); MPV 8.9 fL (7.6-11.3); Platelets 258 thou/uL (152-406); Protime INR 0.95; RBC Red Blood Cell Count 3.63 M/uL (3.86-4.86)
[2023-08-01 23:30] LABS: ALT/SGPT 13 U/L (13-56); AST/SGOT 11 U/L (15-37); Albumin 2.8 g/dL (3.4-5.0); Alkaline Phosphatase 99 U/L (45-117); BUN Blood Urea Nitrogen 22 mg/dL (7-18); Bicarbonate 26 mEq/L (21-32); Bilirubin Total 0.2 mg/dL (0.2-1.0); Glomerular Filtration Rate 84 ml/min (=/>90); Glucose Level 97 mg/dL (74-106); Magnesium 1.7 mg/dL (1.6-2.4); Potassium 4.2 mEq/L (3.5-5.1); Protein, Total 6.4 g/dL (6.4-8.2); Sodium Level 142 mEq/L (136-145); Troponin High Sensitivity 7.3 pg/mL (<58.9)
[2023-08-01 23:35] LABS: Bilirubin Direct < 0.1 mg/dL (0-0.2); Bilirubin Indirect, Calculated ND mg/dL (0.2-0.8)
--- NOTE | 2023-08-01 23:45 | EDPHYS ---
Physician Documentation [facility] Name: Lauren Cruz Age: 63 yrs Sex: Female : 1960 Arrival Date: 08/01/2023 Time: 18:18 Bed 14 Private MD: FE Physician Vinny Beach HPI: 08/01 23:49 This 63 yrs old Female presents to ER via Wheelchair with complaints of Hives, Chest kb Pain. 23:49 Patient is a 63-year-old female who presents for left-sided chest pain, nausea, kb vomiting, restless legs, hives, headache and dizziness that started 1 week ago. States she just moved here has been out of her regular medications. Denies shortness of breath, cough, fever. Historical: - Allergies: 18:33 No Known Allergies; cm10 - PMHx: 18:33 Cerebral palsy; Veritgo; Restless Leg Syndrome; Kidney Cancer; Breast Cancer; Skin cm10 Cancer; - Immunization history:: Adult Immunizations unknown. - Social history:: Smoking status: Patient denies any tobacco usage or history of. ROS: 23:49 Constitutional: Negative for fever, chills, and weight loss, kb 23:49 Cardiovascular: Positive for chest pain, 23:49 Abdomen/GI: Positive for nausea and vomiting, 23:49 Skin: Positive for rash, 23:49 Neuro: Positive for dizziness, 23:49 All other systems are negative, Exam: 23:14 Constitutional: This is a well developed, well nourished patient who is awake, alert, kb and in no acute distress. Head/Face: Normocephalic, atraumatic. ENT: Moist Mucous membranes Cardiovascular: Regular rate Respiratory: Respirations even and unlabored. No increased work of breathing. Talking in full sentences Abdomen/GI: Soft, non-tender. No distention Skin: Warm, dry with normal turgor. Normal color. MS/ Extremity: Pulses equal, no cyanosis. Neurovascular intact. Full, normal range of motion. Neuro: Awake and alert, GCS 15, oriented to person, place, time, and situation. Moves all extremities. Normal gait. 23:14 ECG was reviewed by the Attending Physician. Vital Signs: 18:31 BP 162 / 95; Pulse 83; Resp 19; Temp 98.3; Pulse Ox 99% on R/A; Weight 86.18 kg; Height cm10 5 ft. 3 in. ; Pain 8/10; 23:04 BP 166 / 117; Pulse 77; Resp 17; Pulse Ox 96% on R/A; nw1 18:31 Body Mass Index 33.66 (86.18 kg, 160.02 cm) cm10 18:31 Pain Scale: Adult cm10 MDM: 18:27 Patient medically screened. kb 23:46 Data reviewed: vital signs, nurses notes. kb 23:46 Differential diagnosis: abnormal EKG, acute myocardial infarction, anxiety, coronary kb artery disease chest wall pain, gastroesophageal reflux disease (GERD). Consideration of Admission/Observation Escalation of care including admission/observation considered. admission considered but chest pain resolved with pepcid and zofran, troponin normal, ekg normal and pain had been ongoing for one week. Historians other than the Patient: Daughter/Son: daughter. Counseling: I had a detailed discussion with the patient and/or guardian regarding the historical points, exam findings, and any diagnostic results supporting the discharge/admit diagnosis, lab results, radiology results, the need for outpatient follow up, a family practitioner, to return to the emergency department if symptoms worsen or persist or if there are any questions or concerns that arise at home. ED course: Pt does not know the names of her normal medications for blood pressure. States her refills are supposed to be ready on but will call pcp in the morning to have it expedited. Requests gabapentin to get her through for her restless legs. Normal dose is 200mg twice a day. 12 18:37 Order name: Basic Metabolic Panel; Complete Time: 23:36 kb 08/01 18:37 Order name: CBC with Diff; Complete Time: 23:24 kb 08/01 18:37 Order name: Hepatic Function; Complete Time: 23:36 kb 08/01 18:37 Order name: Magnesium; Complete Time: 23:36 kb 08/01 18:37 Order name: Protime (+inr); Complete Time: 23:20 kb 08/01 18:37 Order name: Ptt, Activated; Complete Time: 23:20 kb 08/01 18:37 Order name: Troponin High Sensitivity; Complete Time: 23:36 kb 08/01 18:37 Order name: Urinalysis w/ reflexes; Complete Time: 00:04 kb 08/01 18:37 Order name: Chest Single View XRAY; Complete Time: 19:55 kb 08/01 18:37 Order name: EKG; Complete Time: 18:38 kb 08/01 18:37 Order name: Cardiac monitoring; Complete Time: 20:23 kb 08/01 18:37 Order name: EKG - Nurse/Tech; Complete Time: 20:23 kb 08/01 18:37 Order name: IV Saline Lock; Complete Time: 20:22 kb 08/01 18:37 Order name: Labs collected and sent; Complete Time: 20:22 kb 08/01 18:37 Order name: NPO; Complete Time: 20:23 kb 08/01 18:37 Order name: O2 Per Protocol; Complete Time: 21:22 kb 08/01 18:37 Order name: O2 Sat Monitoring; Complete Time: 21:22 kb EC:14 Rate is 81 beats/min. Rhythm is regular. QRS [place] is Normal. MD interval is normal at kb 194 msec. QRS interval is normal at 74 msec. QT interval is normal at 460 msec. Administered Medications: 20:22 Drug: Famotidine IVP 20 mg IVP once; dilute with 10 mL 0.9% NaCl; give over 2 minutes nw1 Route: IVP; Site: right forearm; 20:22 Drug: diphenhydrAMINE IVP 12.5 mg IVP once Route: IVP; Site: right forearm; nw1 20:22 Drug: NS 0.9% IV 500 ml IV at bolus once Route: IV; Rate: bolus; Site: right forearm; nw1 20:22 Drug: Ondansetron IVP 4 mg IVP once; over 2 minutes Route: IVP; Site: right forearm; nw1 21:13 Drug: gabapentin 200 mg PO once Route: PO; nw1 21:20 Not Given (pt states previous medication helped ): [id number] mg PO once nw1 Disposition Summary: 08/01/23 23:45 Discharge Ordered Notes: Location: Home kb Condition: Stable kb Diagnosis - Weakness kb - Chest pain, unspecified kb - Gastro-esophageal reflux disease without esophagitis kb - UTI/ Urinary tract infection, site not specified kb Followup: kb - With: Emergency Department - When: As needed - Reason: Worsening of condition Followup: kb - With: Private Physician - When: 2 - 3 days - Reason: Recheck today's complaints, Continuance of care, Re-evaluation by your physician Discharge Instructions: - Discharge Summary Sheet kb - Urinary Tract Infection, Adult, Loor-nq-Bkut kb - Nonspecific Chest Pain, Adult, Fuoy-mg-Tirq kb - Gastroesophageal Reflux Disease, Adult, Xswl-ai-Figs kb Forms: - Medication Reconciliation Form kb - Thank You Letter kb - Antibiotic Education kb - Prescription Opioid Use kb - Patient Portal Instructions kb - Leadership Thank You Letter kb Prescriptions: - Neurontin 100 mg Oral capsule - take 2 capsule ORAL route every 12 hours; 16 capsule; Refills: 0, Product kb Selection Permitted - Augmentin 875-125 mg Oral Tablet - take 1 tablet ORAL route every 12 hours for 10 days; 20 tablet; Refills: 0, kb Product Selection Permitted - Pepcid 20 mg Oral Tablet - take 1 tablet ORAL route once daily; 20 tablet; Refills: 0, Product Selection kb Permitted Signatures: Dispatcher [employer] Samantha Ray FNP-C FNP-Dunia Lopez, RN RN cm10 Reshma Valladares RN RN nw1
--- NOTE | 2023-08-01 23:45 | ER ---
Nurse's Notes [facility] Name: Lauren Cruz Age: 63 yrs Sex: Female : 1960 Arrival Date: 08/01/2023 Time: 18:18 Bed 14 Private MD: Diagnosis: Weakness;Chest pain, unspecified;Gastro-esophageal reflux disease without esophagitis;UTI/ Urinary tract infection, site not specified Presentation: 08/01 18:31 Chief complaint: Patient states: Hives, headache, dizziness, nausea, vomiting, left cm10 sided chest pain X1 week. Pt also states, "I am completely out of my medications.". Coronavirus screen: Vaccine status: Patient reports receiving the 2nd dose of the covid vaccine. Client denies travel out of the [place] in the last 14 days. Ebola Screen: Patient denies travel to an Ebola-affected area in the 21 days before illness onset. No symptoms or risks identified at this time. Onset: The symptoms/episode began/occurred 1 week(s) ago. Anaphylaxis evaluation, no signs or symptoms of anaphylaxis were noted. Initial Sepsis Screen: Does the patient meet any 2 criteria? No. Patient's initial sepsis screen is negative. Does the patient have a suspected source of infection? No. Patient's initial sepsis screen is negative. Risk Assessment: Do you want to hurt yourself or someone else? Patient reports no desire to harm self or others. Onset of symptoms was August 01, 2023. 18:31 Method Of Arrival: Wheelchair cm10 18:31 Acuity: TEO 3 cm10 Historical: - Allergies: 18:33 No Known Allergies; cm10 - PMHx: 18:33 Cerebral palsy; Veritgo; Restless Leg Syndrome; Kidney Cancer; Breast Cancer; Skin cm10 Cancer; - Immunization history:: Adult Immunizations unknown. - Social history:: Smoking status: Patient denies any tobacco usage or history of. Screenin:04 [facility] ED Fall Risk Assessment (Adult) History of falling in the last 3 months, nw1 including since admission Yes- fall prone (multiple falls) (3 pts) Confusion or Disorientation No (0 pts) Intoxicated or Sedated No (0 pts) Impaired Gait Yes (1 pt) Mobility Assist Device Used Yes (1 pt) Altered Elimination Yes (1 pt) Score/Fall Risk Level 3 or more points = High Risk Maintained a safe environment, Educated pt \\T\\ family on fall prevention, incl call for assistance when getting out of bed, Assessed \\T\\ reinforced patient's understanding of fall precautions, Hourly rounding (assess needs \\T\\ fall precautionary measures) done, Implemented a Fall Risk Plan of Care. Abuse screen: Denies threats or abuse. Denies injuries from another. Nutritional screening: No deficits noted. Tuberculosis screening: No symptoms or risk factors identified. Assessment: 20:29 Reassessment: Rounds made. Introductions made. Pt and daughter noted in room, pt in nw1 bed, states that she has had hives, headache, n/v and left sided CP x1 week. Pt noted with cheerful demeanor and no noted s/s of acute distress at this time. Pt states she has been out of medications x1week. Assessment completed and IV started. Pt request medication for "restless leg syndrome" and notified provider Grady of this. Order made and sent to [facility] unit due to not having the medication strength in [facility]. General: Appears in no apparent distress. comfortable, Behavior is calm, cooperative, appropriate for age. Pain: Complains of pain in "everywhere". Neuro: Level of Consciousness is awake, alert, obeys commands, Oriented to person, place, time, situation, Appropriate for age. Cardiovascular: Reports None chest pain, nausea, vomiting, Heart tones present Capillary refill < 3 seconds. Respiratory: Reports cough that is non-productive, Airway is patent Trachea midline Respiratory effort is even, unlabored, Respiratory pattern is regular, symmetrical, Breath sounds are clear bilaterally. GI: Bowel sounds present X 4 quads. Reports nausea, vomiting. : Reports bedwetting, incontinence. Derm: Reports itching, hives. Musculoskeletal: Reports weakness in right leg and left leg. Vital Signs: 18:31 BP 162 / 95; Pulse 83; Resp 19; Temp 98.3; Pulse Ox 99% on R/A; Weight 86.18 kg; Height cm10 5 ft. 3 in. ; Pain 8/10; 23:04 BP 166 / 117; Pulse 77; Resp 17; Pulse Ox 96% on R/A; nw1 18:31 Body Mass Index 33.66 (86.18 kg, 160.02 cm) cm10 18:31 Pain Scale: Adult cm10 ED Course: 18:20 Patient arrived in ED. rg4 18:27 [facility]asm[facility]C [facility] kb 18:27 Vinny Beach MD is Attending Physician. kb 18:33 Triage completed. cm10 18:34 Arm band placed on Patient placed in an exam room, on a stretcher. cm10 18:43 Edie Cruz, RN is Primary Nurse. kc6 19:00 Report given to ELISA Justice. kc6 19:27 Chest Single View XRAY In Process Unspecified. EDMS 19:47 Reshma Valladares, ELISA is Primary Nurse. nw1 20:23 Basic Metabolic Panel Sent. nw1 20:23 CBC with Diff Sent. nw1 20:23 No provider procedures requiring assistance completed. Inserted saline lock: 20 gauge nw1 in right wrist, using aseptic technique. Blood collected. 23:04 Patient has correct armband on for positive identification. Placed in gown. Bed in low nw1 position. Call light in reach. Side rails up X2. Adult w/ patient. Provided Education on: poc. Door closed. Noise minimized. Visitors limited. Lights dimmed. Warm blanket given. PURWICK IN PLACE TO WALL SUCTION. 12 00:42 IV discontinued, intact, bleeding controlled, No redness/swelling at site. Pressure nw1 dressing applied. Administered Medications: 08/01 20:22 Drug: Famotidine IVP 20 mg IVP once; dilute with 10 mL 0.9% NaCl; give over 2 minutes nw1 Route: IVP; Site: right forearm; 20:22 Drug: diphenhydrAMINE IVP 12.5 mg IVP once Route: IVP; Site: right forearm; nw1 20:22 Drug: NS 0.9% IV 500 ml IV at bolus once Route: IV; Rate: bolus; Site: right forearm; nw1 20:22 Drug: Ondansetron IVP 4 mg IVP once; over 2 minutes Route: IVP; Site: right forearm; nw1 21:13 Drug: gabapentin 200 mg PO once Route: PO; nw1 21:20 Not Given (pt states previous medication helped ): mg PO once nw1 Medication: 23:04 VIS not applicable for this client. nw1 Outcome: 23:45 Discharge ordered by . ana maría 08/02 00:41 Discharged to home via wheelchair, with family, nw1 Condition: stable Discharge instructions given to patient, Instructed on discharge instructions, follow up and referral plans. medication usage, Demonstrated understanding of instructions, follow-up care, medications, Prescriptions given X 2, 00:55 Patient left the ED. nw1 Signatures: Dispatcher [employer] EDMS Samantha Rasmussen, OBDULIAC CHORAL TEACHER-Jacklyn Gutierrez rg4 Edie Cruz RN RN kc6 Dunia Mclaughlin RN RN cm10 Reshma Valladares RN RN nw1
[2023-08-02 00:03] LABS: Calcium Oxalate Crystals- Ur Few /HPF (None Seen); Specific Gravity 1.026 (1.005-1.030); Urine Bacteria >50 /HPF (<20); Urine Bilirubin NEGATIVE (Negative); Urine Blood Negative (Negative); Urine Clarity Extremely Turbid (Clear); Urine Color Yellow (Yellow); Urine Glucose NEGATIVE (Negative); Urine Mucus 4+ /HPF (None Seen); Urine Protein TRACE (Negative); Urine RBC None Seen /HPF (None Seen); Urine Urobilinogen Normal (Normal); Urine pH 5.5 (5.0-7.0)
[2023-08-02 02:51] VITALS: TEMP 98.3
[2023-08-02 02:53] VITALS: BP 166/117; O2SAT 96
--- NOTE | 2023-08-03 13:33 | EKG ---
Test Date: 2023-08-01 Test Time: 20:03:06 Title Camera Operator: MARY MEASUREMENT RESULTS: Intervals: Rate: 81 ND: 194 QRSD: 74 QT: 396 QTc: 460 [place]: P: 75 ND: 194 QRS: 66 T: 43 INTERPRETIVE STATEMENTS: Normal sinus rhythm Normal ECG No previous ECG available for comparison Electronically Signed On 08-03-23 13:27:54 SAMPLE TAKER OPERATOR by Justin Diaz
== END 2023-08-02 00:55 | disposition home or self-care (01) ==
LOC: ER 18:18
DX: K21.9 Gastro-esophageal reflux disease without esophagitis (principal); N39.0 Urinary tract infection, site not specified; R53.1 Weakness; G80.9 Cerebral palsy, unspecified; Z85.3 Personal history of malignant neoplasm of breast; Z85.828 Personal history of other malignant neoplasm of skin; Z85.528 Personal history of other malignant neoplasm of kidney
CPT/HCPCS: 93005; 85025; 81001; 80048; 36415; 83735; 85610; 80076; 85730; 84484; 71045; 96375; 96374; 99284; J1200; J2405; J7040